=== PATIENT | male | born 1945 | race Caucasian/White ===

== ENCOUNTER → 2017-05-19 | Outpatient (CLI) | payer MEDICARE, OTHER ==
[~2017-05-19] MED LIST: ALLOPURINOL300 MG PO; ASPIR 8181 MG PO; ATENOLOL50 MG PO; ATORVASTATIN CA20 MG PO; CITALOPRAM HBR20 MG PO; DIATRIZOATE MEGL/DIATRIZOA SOD 30 ML BTL PO ONE; DICYCLOMINE HCL20 MG PO; DOXYCYCLINE HY100 MG PO; EDARBYCLOR 40-1 EAC1 PO; LYRICA50 MG PO; NITROGLYCERIN0.4 MG SL; PLAVIX75 MG PO; POTASSIUM CHLO20 ME1 PO; POTASSIUM CITRATE PO; TURMERIC500 MG PO; WARFARIN SODIUM1 MG PO; WARFARIN SODIUM3 MG PO; XOPENEX HFA15 G1 IH; Z.0.NORCO 10-325 T1 PO; Z.0.PRILOSEC20 MG PO; Z.0.WARFARIN SODIUM4 PO; [UNRECOGNIZED DRUG - OTHER] PO; [UNRECOGNIZED DRUG - OTHER] PO
--- NOTE | 2017-05-19 17:55 | Diagnostic Imaging Report ---
EXAM: CT Abdomen and Pelvis WITHOUT contrast INDICATION: Abdominal abscess. COMPARISON: None. Lower right sided abdominal 1. TECHNIQUE: Abdomen and pelvis were scanned utilizing a multidetector helical scanner from the lung base to the pubic symphysis without administration of IV contrast. Absence of intravenous contrast decreases sensitivity for detection of focal lesions and vascular pathology. Coronal and sagittal reformations were obtained. Routine protocol was performed. IV CONTRAST: None. ORAL CONTRAST: Gastrografin and water mixture. RADIATION DOSE: Total DLP: 813.09 mGy*cm Estimated effective dose: (DLP x 0.015 x size factor) mSv COMPLICATIONS: None FINDINGS: LINES and TUBES: None. LOWER THORAX: Bilateral lower lobe emphysematous changes. Reticular nodular densities in the left lung base are nonspecific, possibly infectious/inflammatory in etiology. Bibasilar pleural-parenchymal scarring. Multivessel coronary artery calcifications. HEPATOBILIARY: No focal hepatic lesions. No biliary ductal dilation. GALLBLADDER: Surgically absent. SPLEEN: No splenomegaly. PANCREAS: No focal masses or ductal dilatation. ADRENALS: No adrenal nodules KIDNEYS/URETERS: No hydronephrosis. 5.4 cm simple appearing cyst exophytic of the posterior lower pole of the right kidney. 2.2 cm mildly high attenuation lesion exophytic of the lower pole of the right kidney on image 42 series 2 may represent a hyperdense cyst, however, cannot be further characterized due to lack of contrast. 2 Simple appearing cysts in the lower pole of the left kidney, the largest measuring 3.7 cm on image 40. No stones. Mild bilateral perinephric stranding. GI TRACT: No abnormal distention, wall thickening, or evidence of bowel obstruction. Appendix is normal. Scattered colonic diverticulosis without diverticulitis. PELVIC ORGANS/BLADDER: The prostate is mildly prominent. LYMPH NODES: No lymphadenopathy. VESSELS: Atherosclerotic calcifications of the aorta and iliac arteries without aneurysmal dilatation. Bilateral common iliac artery stents. PERITONEUM / RETROPERITONEUM: No free air or fluid. BONES: Degenerative disc disease and spondylosis predominantly at L4-L5 and L5-S1. Mild bilateral neural foraminal narrowing at L5-S1. Lower thoracic DISH. SOFT TISSUES: Bilateral calcified and noncalcified gluteal injection granulomata. Bilateral small fat-containing inguinal hernias. 1.4 cm indeterminate inclusion cyst in the left anterior abdominal wall on image 21 series 2. 2.0 cm oval lesion in the subcutaneous of the right lower quadrant on image 81 series 2 which appears to extend to the cutaneous surface, however, without extension into the abdominal cavity. No associated drainable fluid collection. IMPRESSION: 1. 2.0 cm subcutaneous lesion in the right lower quadrant anteriorly which appears to extend to the cutaneous surface not extending intra-abdominally. No drainable abscess/fluid collection. No Intra-abdominal fluid collection. 2. 2.2 cm mildly high attenuation lesion in the lower pole of the right kidney may represent a hyperdense cyst, however, cannot be further characterized due to the lack of contrast. Signed by: Dr. Morris Shea M.D. on 05/19/2017 5:52 PM
== END ==
LOC: CT 15:17
PROVIDERS: ATTEND Internal Medicine Infectious Disease
DX: L02.211 Cutaneous abscess of abdominal wall (principal)
CPT/HCPCS: 74176

== ENCOUNTER → 2017-06-10 | Outpatient (CLI) | payer MEDICARE, OTHER ==
[~2017-06-10] VITALS: Ht 193 cm; Wt 101.6 kg
[~2017-06-10] MED LIST changes: +AMIODARONE HCL200 MG PO; +CIPROFLOXACIN500 MG PO; -DIATRIZOATE MEGL/DIATRIZOA SOD 30 ML BTL PO ONE; +FLUCONAZOLE100 MG PO; +FUROSEMIDE40 MG PO; +LIDOCAINE HCL 2% LOCAL 20 ML VIAL ONE; +POTASSIUM CITR10 MEQ PO; +SODIUM CHLORIDE 0.9% 250ML 0 ML ONE; +SODIUM CHLORIDE 0.9% 500ML 500 ML ONE; +WARFARIN SODIUM2 MG PO
[2017-06-10 11:10] VITALS: BP 105/62
[2017-06-10 12:29] LABS: ABG HCO3 22 mmol/L (23-28); ABG PCO2 35 mmHg (41-51); ABG PH 7.41 (7.31-7.41); ABG PO2 86 mmHg (80-105)
[2017-06-10 14:13] VITALS: BP 132/75
--- NOTE | 2017-06-10 14:29 | Pulmonary Function Test ---
DATE OF STUDY: June 10, 2017 Forced vital capacity 2.71 liters, 52% of predicted. FEV1 1.68 liters, 44%. FEV1:FVC ratio 62%. QTI31-34 is 33%. Diffusion capacity is reduced at 11.6, 36% of predicted. Lung volumes are preserved. Total lung capacity 8.76 liters, 108% of predicted. Findings consistent with severe obstructive pulmonary disease. Reduced diffusion capacity suggests loss of alveolar units with ventilation and perfusion imbalance. Arterial blood gases: pH 7.41, pCO2 is 35, pAO2 is 86, normal acid-base status. AA gradient is slightly elevated at 21.8. Job#: [id number]
--- NOTE | 2017-06-15 10:58 | Diagnostic Imaging Report ---
Exam: Tunneled right IJ central line removal. History: Right IJ tunneled catheter present since March 2017 for IV antibiotics. Patient has completed antibiotics and no longer needs access. Comparison: None available Findings: Utilizing 1% Xylocaine after sterile preparation the tunneled right IJ central line was removed after blunt dissection to free up the Dacron cuff. The catheter was removed in its entirety. Tissue adhesive was placed at the insertion site. Patient tolerated the procedure well. Fluoroscopy time: 0.4 minutes Total dose: 110.8 cGycm2 Impression: Successful removal of a tunneled right IJ central line. Signed by: Dr. Liban Mcneil DO on 06/11/2017 1:41 PM
== END ==
LOC: RESP 09:14
PROVIDERS: ATTEND Internal Medicine
DX: I70.0 Atherosclerosis of aorta (principal); I70.223 Atherosclerosis of native arteries of extremities with rest pain, bilateral legs; I70.235 Atherosclerosis of native arteries of right leg with ulceration of other part of foot
CPT/HCPCS: 36415; 77001; 82805; 94010; 94727; 94729; J2001; J7040; 36590; J7050

== ENCOUNTER 2017-08-11 09:56 | Inpatient (IN) | payer MEDICARE, OTHER ==
[~2017-08-11] VITALS: Ht 193 cm; Wt 113.0 kg
[~2017-08-11 09:56] MED LIST changes: -LIDOCAINE HCL 2% LOCAL 20 ML VIAL ONE; -SODIUM CHLORIDE 0.9% 250ML 0 ML ONE; -SODIUM CHLORIDE 0.9% 500ML 500 ML ONE
--- OUTSIDE RECORDS SUMMARY | 2017-08-11 10:59 | XMS REPORT ---
Author Author 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 Allergies, Adverse Reactions, Alerts This patient has no known allergies or adverse reactions. Medications This patient has no known medications. Results Test Description Test Time Test Comments Text Results Atomic Results Result Comments SPECIAL PROCEDURE IN [employer] [place] [address] Patient Name: SUSAN KELLY MR #: [id number] : 1945 Age/Sex: 71/M Req #: [id number] [facility] Physician: Ordered by: IGGY HERCULES MD Report #: [id number] Location: RESP Room/Bed: Procedure: [id number] IR/SPECIAL PROCEDURE IN [employer] Exam Date: Exam Time: REPORT STATUS: Signed Exam: Tunneled right IJ central line removal. History: Right IJ tunneled catheter present since March 2017 for IV antibiotics. Patient has completed antibiotics and no longer needs access. Comparison: None available Findings: Utilizing 1 % Xylocaine after sterile preparation the tunneled right IJ central line was removed after blunt dissection to free up the Dacron cuff. The catheter was removed in its entirety. Tissue adhesive was placed at the insertion site. Patient tolerated the procedure well. Fluoroscopy time: 0.4 minutes Total dose: 110.8 cGycm2 Impression: Successful removal of a tunneled right IJ central line. Signed by: Dr. Scooby Mcneil DO on 06/11/2017 1:41 PM Dictated By: SCOOBY MCNEIL DO [id number] Transcribed By: FRANCESCO on 06/15/17 1054 COPY TO: IGGY HERCULES MD CT ABDOMEN/PELVIS WO [place] [address] Patient Name: SUSAN KELLY MR #: [id number] : 1945 Age/Sex: 71/M Req #: [id number] Adm Physician: Ordered by: FLOYD OSORIO MD Report #: [id number] Location: CT Room/Bed: Procedure: [id number] CT/CT ABDOMEN/PELVIS WO Exam Date: 05/19/17 Exam Time: 1630 REPORT STATUS: Signed EXAM: CT Abdomen and Pelvis WITHOUT contrast INDICATION: Abdominal abscess. COMPARISON: None. Lower right sided abdominal 1. TECHNIQUE: Abdomen and pelvis were scanned utilizing a multidetector helical scanner from the lung base to the pubic symphysis without administration of IV contrast. Absence of intravenous contrast decreases sensitivity for detection of focal lesions and vascular pathology. Coronal and sagittal reformations were obtained. Routine protocol was performed. IV CONTRAST: None. ORAL CONTRAST: Gastrografin and water mixture. RADIATION DOSE: Total DLP: 813.09 mGy*cm Estimated effective dose: (DLP x 0.015 x size factor) mSv COMPLICATIONS: None FINDINGS: LINES and TUBES: None. LOWER THORAX: Bilateral lower lobe emphysematous changes. Reticular nodular densities in the left lung base are nonspecific, possibly infectious /inflammatory in etiology. Bibasilar pleural-parenchymal scarring. Multivessel coronary artery calcifications. HEPATOBILIARY: No focal hepatic lesions. No biliary ductal dilation. GALLBLADDER: Surgically absent. SPLEEN: No splenomegaly. PANCREAS: No focal masses or ductal dilatation. ADRENALS: No adrenal nodules KIDNEYS/URETERS: No hydronephrosis. 5.4 cm simple appearing cyst exophytic of the posterior lower pole of the right kidney. 2.2 cm mildly high attenuation lesion exophytic of the lower pole of the right kidney on image 42 series 2 may represent a hyperdense cyst, however, cannot be further characterized due to lack of contrast. 2 Simple appearing cysts in the lower pole of the left kidney, the largest measuring 3.7 cm on image 40. No stones. Mild bilateral perinephric stranding. GI TRACT: No abnormal distention, wall thickening, or evidence of bowel obstruction. Appendix is normal. Scattered colonic diverticulosis without diverticulitis. PELVIC ORGANS/BLADDER: The prostate is mildly prominent. LYMPH NODES: No lymphadenopathy. VESSELS : Atherosclerotic calcifications of the aorta and iliac arteries without aneurysmal dilatation. Bilateral common iliac artery stents. PERITONEUM / RETROPERITONEUM: No free air or fluid. BONES: Degenerative disc disease and spondylosis predominantly at L4-L5 and L5-S1. Mild bilateral neural foraminal narrowing at L5-S1. Lower thoracic DISH. SOFT TISSUES: Bilateral calcified and noncalcified gluteal injection granulomata. Bilateral small fat- containing inguinal hernias. 1.4 cm indeterminate inclusion cyst in the left anterior abdominal wall on image 21 series 2. 2.0 cm oval lesion in the subcutaneous of the right lower quadrant on image 81 series 2 which appears to extend to the cutaneous surface, however, without extension into the abdominal cavity. No associated drainable fluid collection. IMPRESSION: 1. 2.0 cm subcutaneous lesion in the right lower quadrant anteriorly which appears to extend to the cutaneous surface not extending intra-abdominally. No drainable abscess/fluid collection. No Intra-abdominal fluid collection. 2. 2.2 cm mildly high attenuation lesion in the lower pole of the right kidney may represent a hyperdense cyst, however, cannot be further characterized due to the lack of contrast. Signed by: Dr. Morris Sheffield M.D. on 05/19/2017 5:52 PM Dictated By: JAYA SHEFFIELD MD, MD 51 Transcribed By: FRANCESCO on 09/29 COPY TO: FLOYD OSORIO MD
--- OUTSIDE RECORDS SUMMARY | 2017-08-11 10:59 | XMS REPORT | Clinical Summary ---
Author Author [facility] Organization [facility] Address Unknown Phone Unavailable Care Team Providers Care Attending Anesthesiologist Name Role Phone Satinder Hong MD PCP Unavailable Allergies Active Allergy Reactions Severity Noted Date Comments Adhesive Tape-Silicones Low 06/16/2017 Blisters / OK with cloth tape Codeine Rash Low 06/16/2017 Nausea /vomiting Current Medications Prescription Sig. Disp. Refills Start End Date Status Date allopurinol (ZYLOPRIM) Take 300 mg by mouth Active 300 MG tablet nightly. aspirin (ECOTRIN) 81 MG Take 81 mg by mouth Active enteric coated tablet daily. atorvastatin (LIPITOR) 20 Take 20 mg by mouth Active MG tablet nightly. Default OP ins citalopram (CeleXA) 20 MG Take 20 mg by mouth Active tablet daily. furosemide (LASIX) 40 mg Take 40 mg by mouth 2 Active tablet (two) times a day. nitroglycerin (NITROSTAT) Place 0.4 mg under the Active 0.4 MG SL tablet tongue every 5 (five) minutes as needed for chest pain. albuterol (PROAIR Inhale 2 puffs every 6 Active HFA,PROVENTIL (six) hours as needed for HFA,VENTOLIN HFA) 90 wheezing. mcg/actuation inhaler omeprazole (PriLOSEC) 20 Take 20 mg by mouth Active MG capsule daily. potassium citrate Take by mouth every Active (UROCIT-K) 10 mEq (1,080 evening. mg) CR tablet pregabalin (LYRICA) 50 MG Take 50 mg by mouth every Active capsule evening. amIODarone (PACERONE) 200 Take 200 mg by mouth Active MG tablet daily. LACTOBACILLUS ACIDOPHILUS Take by mouth. Active (PROBIOTIC ORAL) doxycycline (VIBRAMYCIN) Take 100 mg by mouth Active 100 MG capsule daily. ciprofloxacin (CIPRO) 500 Take 500 mg by mouth Active MG tablet daily. atenolol (TENORMIN) 25 MG Take 1 tablet (25 mg 30 tablet 11 06/28/19 06/28/19 Active tablet total) by mouth nightly. 18 19 ferrous sulfate 325 (65 Take 1 tablet (325 mg 60 tablet 11 06/28/19 06/28/19 Active FE) MG tablet total) by mouth 2 (two) 18 19 times a day with meals. atenolol (TENORMIN) 50 MG Take 50 mg by mouth 06/28/19 Discontin tablet nightly. 18 ued clopidogrel (PLAVIX) 75 Take 75 mg by mouth 06/28/19 Discontin mg tablet daily. 18 ued azilsartan Take by mouth. 1/2 tab 06/22/19 Discontin med-chlorthalidone daily 18 ued (EDARBYCLOR) 40-25 mg tablet WARFARIN SODIUM (WARFARIN Take by mouth. 8 mg=Tu06/28/19 Discontin ORAL) , Sat 18 ued 5 mg=Mon, Thur, Fri , Sun fluconazole (DIFLUCAN) Take by mouth daily. 06/28/19 Discontin 100 MG tablet 18 ued azilsartan Take by mouth. 06/28/19 Discontin med-chlorthalidone 18 ued (EDARBYCLOR) 40-25 mg tablet warfarin (COUMADIN) 1 MG Take 7 tablets (7 mg 210 tablet 0 06/28/19 07/28/19 tablet total) by mouth daily for 18 18 30 days. traMADol (ULTRAM) 50 mg Take 1 tablet (50 mg 40 tablet 0 06/28/19 tablet total) by mouth every 6 18 18 (six) hours as needed for moderate pain or severe pain for up to 14 days. enoxaparin (LOVENOX) 100 Inject 1 mL (100 mg 6 mL 0 06/28/19 mg/mL syringe total) under the skin 2 18 18 (two) times a day for 3 days. Active Problems Problem Noted Date PAD (peripheral artery disease) 06/21/2017 Encounters Date Type Specialty Care Team Description 06/21/2017 [facility] Cardiology Baltazar Hoff MD S/P femoral- popliteal - Encounter bypass surgery (Primary 06/27/2017 Dx); PAD (peripheral artery disease) 06/21/2017 Procedure Pass Cardiothoracic Surgery 06/21/2017 Surgery Cardiothoracic Surgery Baltazar Hoff MD RIGHT FEMORAL BELOW KNEE POPLITEAL BYPASS WITH BALLOON/STENT OF POSTERIOR TIBIAL ARTERY 06/16/2017 Hospital Radiology Baltazar Hoff MD Pre-op testing Encounter 06/16/2017 Pre-Admit Pre-Admission Testing Baltazar Hoff MD Pre -op testing (Primary Testing Dx) Appointment 06/16/2017 Anesthesia Cardiothoracic Surgery Genny Curry APRN Event after 08/10/2016 Social History Tobacco Use Types Packs/Day Years Used Date Former Smoker 1 50 Quit: 1999 Smokeless Tobacco: Former Quit: 2011 User Comments: smokeless tobacco 2cans/day , used x 24 years , quit 2011 Alcohol Use Drinks/Week oz/Week Comments No Sex Assigned at Date Recorded Not on file Last Filed Vital Signs Vital Sign Reading Time Taken Blood Pressure 137/65 06/27/2017 7:14 AM CDT Pulse 76 06/27/2017 7:14 AM CDT Temperature 36.9 C (98.5 F) 06/27/2017 7:14 AM CDT Respiratory Rate 20 06/27/2017 7:14 AM CDT Oxygen Saturation 98% 06/27/2017 7:14 AM CDT Inhaled Oxygen - - Concentration Weight 111 kg (243 lb 14.4 oz) 06/27/2017 4:30 AM CDT Height 193 cm (6' 4") 06/16/2017 4:10 PM CDT Body Mass Index 29.69 06/27/2017 4:30 AM CDT Plan of Treatment Health Maintenance Due Date Last Done Comments COLON CANCER SCREENING 1994 SHINGRIX VACCINE (#1) 1994 ZOSTER VACCINE 2004 PNEUMOCOCCAL 2009 POLYSACCHARIDE VACCINE AGE 65 AND OVER PNEUMOCOCCAL-13 2009 INFLUENZA VACCINE 10/13/2017 Procedures Procedure Name Priority Date/Time Associated Diagnosis Comments CENTRAL LINE Routine 06/21/2017 8:02 AM CDT Procedure Note - Mally Mehta MD - 06/21/2017 8:02 AM CDT Central line Performed by: MALLY MEHTA Authorized by: MALLY MEHTA Patient Location: OR Staff: Anesthesio logist: MALLY MEHTA Performed by: Anesthesio logist Preprocedu re:patient identified , IV checked, site and side verified, risks and benefits discussed, procedure verified, surgical consent complete, patient position confirmed, monitors and equipment checked and pre-op evaluation complete MSBT: antiseptic used during central venous catheter insertion, all elements of maximal sterile barrier technique followed, hand hygiene performed prior to central venous catheter insertion, cap/gown used by other personnel during central venous catheter insertion, solutions labeled and all ports not used during insertion clamped Indication s: Indication s: Central pressure monitoring and vascular access Anesthesia : Anesthesia : General Procedure details: Patient position: Trendelenb urg Catheter Type: Double lumen Catheter Size: 8 Fr Catheter Site: internal jugular vein Catheter site laterality : Right Pre-proced ure: Landmarks identified Ultrasound guidance used: Yes Ultrasound image saved: Yes Number of attempts: 1 Successful placement: Yes Guidewire removal: Guidewire removal is confirmed Guidewire removal witnessed by: GABY PEREZ Post-proce dure: Post-proce dure: line sutured, sterile dressing applied per protocol and ports flushed with saline Post-proce dure: Blood cleaned with CHG and sterile caps on all hubs Assessment : Blood return through all ports and free fluid flow Complicati ons: Arrhythmia Patient tolerance: Patient tolerated the procedure well with no immediate complicati ons ARTERIAL LINE Routine 06/21/2017 8:01 AM CDT Procedure Note - Mally Mehta MD - 06/21/2017 8:01 AM CDT Arterial line Performed by: MALLY MEHTA Authorized by: MALLY MEHTA Staff: Anesthesio emmanuel: MALLY MEHTA Performed by: Anesthesio logist Pre-proced ure: patient identified , IV checked, site and side verified, risks and benefits discussed, procedure verified, surgical consent complete, patient position confirmed, monitors and equipment checked and pre-op evaluation complete MSBT: antiseptic used, all elements of maximal sterile barrier technique followed, hand hygiene performed, cap/gown used by other personnel and solutions labeled Indication s: Indication s: multiple ABGs and hemodynami c monitoring Anesthesia : Anesthesia : General Procedure Details: Arterial Line placement: Placed post induction Line placement site: Axillary Line placement side: Left Arterial line gauge: 20 G Number of attempts: 1 Ultrasound guidance used: Yes Post-proc edure: Post-proce dure: Line sutured and sterile dressing applied Post procedure circulatio n, sensation, movement: Normal and unchanged Patient tolerance: Patient tolerated the procedure well with no immediate complicati ons MO AN ELECTIVE Routine 06/21/2017 ENDOTRACHEAL AIRWAY 8:00 AM CDT Procedure Note - Mally Mehta MD - 06/21/2017 8:00 AM CDT Airway Performed by: MALLY MEHTA Authorized by: MALLY MEHTA Location: OR Urgency: Elective Difficult Airway: No Anesthesio logist: MALLY MEHTA Resident/C RNA/AA: GABY PEREZ Performed by: resident/C RNA/AA Preoxygena jordan with 100% O2: Yes C-spine Precaution s Maintained Throughout : Yes Mask Ventilatio n: Assisted mask Final Airway Type: Endotrache al airway Final Endotrache al Airway: ETT Cuffed: Yes Technique Used: Video laryngosco py Devices/Me thods Used in Placement: Intubatin g stylet Insertion Site: Oral Blade type: Glidescope . Laryngosco pe Blade/Vide olaryngosc ope Blade Size: 4 ETT Size (mm): 8.0 Cuff at minimum occlusion pressure: Yes Measured from: Lips ETT to Lips (cm): 21 Placement Verified by: CO2 detection, direct visualizat ion and equal breath sounds Laryngosco pic view: Grade I - full view of glottis Rapid Sequence Induction (RSI): No Modified RSI: No Number of Attempts at Approach: 1 Atraumati c. after 08/10/2016 Results * CBC with platelet and differential (06/27/2017 9:49 AM) Only the most recent of 5 results within the time period is included. Component Value Ref Range WBC 8.07 4.50 - 11.00 k/uL RBC 3.14 (L) 4.40 - 6.00 m/uL HGB 9.0 (L) 14.0 - 18.0 g/dL HCT 28.0 (L) 41.0 - 51.0 % MCV 89.2 82.0 - 100.0 fL MCH 28.7 27.0 - 34.0 pg MCHC 32.1 31.0 - 37.0 g/dL RDW - SD 55.1 (H) 37.0 - 55.0 fL MPV 10.7 8.8 - 13.2 fL Platelet count 217 150 - 400 k/uL Nucleated RBC 0.40 /100 WBC Neutrophils 70.6 (H) 39.0 - 69.0 % Lymphocytes 16.4 (L) 25.0 - 45.0 % Monocytes 8.6 0.0 - 10.0 % Eosinophils 0.1 0.0 - 5.0 % Basophils 0.1 0.0 - 1.0 % Immature granulocytes 4.2 (H)Comment: "Immature granulocytes" 0.0 - 1.0 % (promyelocytes, myelocytes, metamyelocytes) Specimen Performing Laboratory Blood [facility] DEPARTMENT OF PATHOLOGY AND GENOMIC MEDICINE [address] [place] [address] * Estimated GFR (06/27/2017 8:07 AM) Only the most recent of 9 results within the time period is included. Component Value Ref Range GFR Non Af Amer 37 (A) mL/min/1.73 m2 GFR Af Amer 45 (A) mL/min/1.73 m2 Comment: Chronic kidney disease: <60 mL/min/1.73m2 Kidney failure: <15 mL/min/1.73m2 The estimated GFR is calculated from the IDMS-traceable Modification of Diet in Renal Disease Equation. The accuracy of the calculation is poor when the creatinine is normal. Calculated values >90 mL/min/1.73m2 are not reported. This equation has not been validated in children (<18 years), women, the elderly (>70 years), or ethnic groups other than Caucasians and Americans. Specimen Performing Laboratory Plasma specimen [facility] DEPARTMENT OF PATHOLOGY AND [employer] [address] [address] * Basic metabolic panel (06/27/2017 8:07 AM) Only the most recent of 8 results within the time period is included. Component Value Ref Range Sodium 136 135 - 148 mEq/L Potassium 4.5 3.5 - 5.0 mEq/L Chloride 95 (L) 98 - 112 mEq/L CO2 29 24 - 31 mEq/L Anion gap 12 7 - 15 mEq/L Comment: Starting from June , anion gap calculation no longer incorporates potassium. Please note the change. BUN 44 (H) 8 - 23 mg/dL Creatinine 1.8 (H) 0.7 - 1.2 mg/dL Glucose 93 65 - 99 mg/dL Calcium 9.2 8.8 - 10.2 mg/dL Specimen Performing Laboratory Plasma specimen [facility] DEPARTMENT OF PATHOLOGY AND GENOMIC MEDICINE [address] [place] [address] * Prothrombin time with INR (06/27/2017 5:00 AM) Only the most recent of 7 results within the time period is included. Component Value Ref Range Prothrombin time 18.4 (H) 12.0 - 15.0 sec INR 1.5 Comment: The International Normalized Ratio (INR) is a therapeutic monitoring tool for patients who are stable on oral anticoagulant therapy. An INR of 2.0-3.0 is suggested for deep vein thrombosis/pulmonary embolism. Specimen Performing Laboratory Blood [facility] PATHOLOGY [facility] MEDICINE [address] [place] [address] * CBC hemogram (06/26/2017 5:00 AM) Only the most recent of 5 results within the time period is included. Component Value Ref Range WBC 6.93 4.50 - 11.00 k/uL RBC 2.85 (L) 4.40 - 6.00 m/uL HGB 8.1 (L) 14.0 - 18.0 g/dL HCT 25.5 (L) 41.0 - 51.0 % MCV 89.5 82.0 - 100.0 fL MCH 28.4 27.0 - 34.0 pg MCHC 31.8 31.0 - 37.0 g/dL RDW - SD 56.8 (H) 37.0 - 55.0 fL MPV 11.0 8.8 - 13.2 fL Platelet count 182 150 - 400 k/uL Nucleated RBC 0.40 /100 WBC Specimen Performing Laboratory Blood [facility] DEPARTMENT OF PATHOLOGY [facility] MEDICINE [address] [place], [place] [id number] * POC glucose (06/25/2017 12:13 PM) Only the most recent of 16 results within the time period is included. Component Value Ref Range POC glucose 99 65 - 99 mg/dL Comment: [facility] Notified RN Meter ID: [id number] Vice President Mission Integration: Kleber Whitney Specimen Performing Laboratory [facility] DEPARTMENT OF PATHOLOGY AND [facility] MEDICINE [address] [place], [place] [id number] * Total iron binding capacity (06/25/2017 4:00 AM) Component Value Ref Range Iron level 23 (L) 59 - 158 ug/dL Iron binding capacity 270 200 - 400 ug/dL % Saturation 8.5 (L) 20.0 - 40.0 % Specimen Performing Laboratory Plasma specimen [facility] DEPARTMENT OF PATHOLOGY AND GENOMIC MEDICINE [address] [place] [address] * Magnesium level (06/25/2017 4:00 AM) Only the most recent of 6 results within the time period is included. Component Value Ref Range Magnesium 1.6 1.6 - 2.4 mg/dL Specimen Performing Laboratory Plasma specimen [facility] DEPARTMENT OF PATHOLOGY AND [address] [address] * Ferritin level (06/25/2017 4:00 AM) Component Value Ref Range Ferritin level 91 30 - 400 ng/mL Specimen Performing Laboratory Plasma specimen [facility] DEPARTMENT PATHOLOGY [facility] MEDICINE [address] [place] [address] * ECG 12 lead (06/24/2017 10:44 AM) Only the most recent of 4 results within the time period is included. Component Value Ref Range Ventricular rate 93 Atrial rate 93 MO interval 138 QRSD interval 136 QT interval 374 QTC interval 465 P axis 1 67 QRS axis 1 48 T wave axis 25 EKG impression Normal sinus rhythm-Right bundle branch block-Abnormal ECG-In automated comparison with ECG of 23-JUN-2017 09:37,-No significant change was found- Specimen Performing Laboratory [facility] MUSE [address] [place], [place] [id number] * Smear review (06/24/2017 7:57 AM) Component Value Ref Range Platelet slide review Tony adequate Anisocytosis Moderate Polychromasia Moderate Ovalocytes Moderate Specimen Performing Laboratory [facility] DEPARTMENT OF PATHOLOGY AND [facility] MEDICINE [address] [place] [address] * Phosphorus level (06/23/2017 4:00 AM) Only the most recent of 3 results within the time period is included. Component Value Ref Range Phosphorus 4.7 (H) 2.4 - 4.5 mg/dL Specimen Performing Laboratory Plasma specimen [facility] DEPARTMENT PATHOLOGY AND [facility] MEDICINE [address] [place] [address] * Ionized calcium (06/23/2017 4:00 AM) Only the most recent of 3 results within the time period is included. Component Value Ref Range pH 7.40 Ionized calcium 1.22 1.11 - 1.32 mmol/L Specimen Performing Laboratory Plasma specimen [facility] OF PATHOLOGY AND [facility] MEDICINE [address] [place] [address] * Hemoglobin & hematocrit (06/22/2017 9:00 AM) Component Value Ref Range HGB 7.5 (L) 14.0 - 18.0 g/dL HCT 23.2 (L) 41.0 - 51.0 % Specimen Performing Laboratory Blood [facility] DEPARTMENT OF PATHOLOGY AND GENOMIC MEDICINE [address] [place], [place] [id number] * Partial thromboplastin time, activated (06/22/2017 9:00 AM) Only the most recent of 3 results within the time period is included. Component Value Ref Range PTT 26.4 23.0 - 36.0 sec Comment: PTT therapeutic range for unfractionated heparin is 61.0-112.0 seconds which corresponds to Anti-Xa 0.3-0.7 U/ml. Specimen Performing Laboratory Blood [facility] DEPARTMENT OF PATHOLOGY AND GENOMIC MEDICINE [address] [place] [address] * XR Chest 1 Vw Portable (06/21/2017 2:40 PM) Specimen Performing Laboratory [facility] [address] [place] [address] Narrative EXAMINATION:XR CHEST 1 VW PORTABLE CLINICAL HISTORY:UVC line placementPost Operative COMPARISON: June 16, 2017 . IMPRESSION: 1.Heart size and mediastinum are at upper limits of normal. 2.Positioning of a right IJ line is satisfactory with the tip along the distal SVC. 3.There are emphysematous changes in lungs bilaterally. No pneumothorax. Osseous structures are intact. [facility]-[id number] Procedure Note Hm Interface, Radiology Results Incoming - 06/21/2017 3:39 PM CDT EXAMINATION: XR CHEST 1 VW PORTABLE CLINICAL HISTORY: UVC line placement Post Operative COMPARISON: June 16, 2017 . IMPRESSION: 1. Heart size and mediastinum are at upper limits of normal. 2. Positioning of a right IJ line is satisfactory with the tip along the distal SVC. 3. There are emphysematous changes in lungs bilaterally. No pneumothorax. Osseous structures are intact. [facility]-[id number] * Sodium level, syringe (06/21/2017 12:43 PM) Only the most recent of 6 results within the time period is included. Component Value Ref Range Sodium, syringe 136 135 - 148 mEq/L Specimen Performing Laboratory Blood [facility] DEPARTMENT OF PATHOLOGY AND GENOMIC MEDICINE [address] [place] [address] * Potassium, syringe (06/21/2017 12:43 PM) Only the most recent of 6 results within the time period is included. Component Value Ref Range Potassium, syringe 4.9 3.5 - 5.0 mEq/L Specimen Performing Laboratory Blood [facility] [place] [address] * Ionized calcium, arterial (06/21/2017 12:43 PM) Only the most recent of 6 results within the time period is included. Component Value Ref Range Ionized calcium, arterial 1.33 (H) 1.11 - 1.32 mmol/L Specimen Performing Laboratory Blood [facility] PATHOLOGY [place] [id number] * Hemoglobin, syringe (06/21/2017 12:43 PM) Only the most recent of 6 results within the time period is included. Component Value Ref Range Hemoglobin, syringe 9.3 (L) 14.0 - 18.0 g/dL Specimen Performing Laboratory Blood [facility] [place] [address] * Glucose level, syringe (06/21/2017 12:43 PM) Only the most recent of 6 results within the time period is included. Component Value Ref Range Glucose, syringe 154 (H) 65 - 99 mg/dL Specimen Performing Laboratory Blood [facility] PATHOLOGY [place] [id number] * Arterial blood gas, corrected (06/21/2017 12:43 PM) Only the most recent of 6 results within the time period is included. Component Value Ref Range pH, arterial 7.40 7.35 - 7.45 pCO2, arterial 40 35 - 45 mmHg pO2, arterial 382 (H) 80 - 90 mmHg Temperature, Celsius 37.0 Degrees C O2 saturation, arterial 99 95 - 100 % pH, arterial corrected 7.40 pCO2, arterial corrected 40 mmHg pO2, arterial corrected 382 mmHg Base excess, arterial 0 -2 - 2 mEq/L Specimen Performing Laboratory Blood [facility] PATHOLOGY [place] [id number] * Lactic acid, syringe (06/21/2017 11:00 AM) Only the most recent of 2 results within the time period is included. Component Value Ref Range Lactic acid, syringe 1.4 0.5 - 2.2 mmol/L Specimen Performing Laboratory Blood [facility] DEPARTMENT PATHOLOGY [place] [id number] * XR Chest 2 Vw (06/16/2017 4:47 PM) Specimen Performing Laboratory [facility] [address] [place] [address] Narrative EXAMINATION:XR CHEST 2 VW CLINICAL HISTORY:Z01.818 Encounter for other preprocedural examination, pre op testing COMPARISON:04/03/2001 IMPRESSION: Increased interstitial markings within the lung bases. Mildly decreased lung volumes and slight elevation right hemidiaphragm. No definite acute infiltrate, consolidation, pleural effusion or pneumothorax seen. Clips project over the mediastinum and hilar structures. Cardiac mediastinal silhouette is within normal limits. Osseous degenerative changes. Cervical spinal fixation plate and screw hardware partly visualized. [facility]-[id number] Procedure Note Hm Interface, Radiology Results Incoming - 06/16/2017 4:52 PM CDT EXAMINATION: XR CHEST 2 VW CLINICAL HISTORY: Z01.818 Encounter for other preprocedural examination, pre op testing COMPARISON: 04/03/2001 IMPRESSION: Increased interstitial markings within the lung bases. Mildly decreased lung volumes and slight elevation right hemidiaphragm. No definite acute infiltrate, consolidation, pleural effusion or pneumothorax seen. Clips project over the mediastinum and hilar structures. Cardiac mediastinal silhouette is within normal limits. Osseous degenerative changes. Cervical spinal fixation plate and screw hardware partly visualized. [facility]-[id number] * ECG Pre/Post Op (06/16/2017 3:45 PM) Component Value Ref Range Ventricular rate 68 Atrial rate 68 MO interval 142 QRSD interval 132 QT interval 428 QTC interval 455 P axis 1 73 QRS axis 1 56 T wave axis 36 EKG impression Normal sinus rhythm-Right bundle branch block-Abnormal ECG-No previous ECGs available- Specimen Performing Laboratory [facility] [address] [place] [address] * Prepare RBC (06/16/2017 3:39 PM) Only the most recent of 2 results within the time period is included. Component Value Ref Range Product name [employer] Red Cell AS3 #2 LR Unit number [id number] Product code [id number] Dispense status Transfused Blood expiration date [id number] Blood type code 5100 Blood type O POSITIVE Product name [employer] Red Cell AS3 #2 LR Unit number [id number] Product code [id number] Dispense status Transfused Blood expiration date 091995580082 Blood type code 5100 Blood type O POSITIVE Specimen Performing Laboratory [facility] DEPARTMENT OF PATHOLOGY AND GENOMIC MEDICINE [address] [place] [address] * Type and screen (06/16/2017 3:39 PM) Component Value Ref Range ABO grouping O Rh type POS Antibody screen (gel) NEG Specimen Performing Laboratory Blood [facility] DEPARTMENT OF PATHOLOGY AND GENOMIC MEDICINE [address] [place] [address] * Comprehensive metabolic panel (06/16/2017 3:39 PM) Component Value Ref Range Sodium 142 135 - 148 mEq/L Potassium 4.4 3.5 - 5.0 mEq/L Chloride 102 98 - 112 mEq/L CO2 25 24 - 31 mEq/L Anion gap 15 7 - 15 mEq/L Comment: Starting from June , anion gap calculation no longer incorporates potassium. Please note the change. BUN 59 (H) 8 - 23 mg/dL Creatinine 2.4 (H) 0.7 - 1.2 mg/dL Glucose 94 65 - 99 mg/dL Calcium 9.5 8.8 - 10.2 mg/dL Protein 6.7 6.3 - 8.3 g/dL Comment: 4.6-7.0 g/dL 1 week 4.4-7.6 g/dL 7 months-1year 5.1-7.3 g/dL 1-2 years 5.6-7.5 g/dL >3 years 6.0-8.0 g/dL 18-150 6.3-8.3 g/dL Albumin 3.3 (L) 3.5 - 5.0 g/dL A/G ratio 1.0 0.7 - 3.8 Alkaline phosphatase 75 40 - 129 U/L AST 19 10 - 50 U/L ALT 18 5 - 50 U/L Total bilirubin 0.3 0.0 - 1.2 mg/dL Specimen Performing Laboratory Plasma specimen [facility] DEPARTMENT OF PATHOLOGY AND GENOMIC MEDICINE [address] [place] [address] after 08/10/2016 Insurance Payer Benefit Subscriber ID Type Phone Address Plan / Group MEDICARE MEDICARE xxxxxxxxxx Medicare [place] PART A AND B [employer] [employer] Home[id number] [place] [id number]
[2017-08-11 11:36] VITALS: BP 84/51
[2017-08-11 12:00] LABS: BASOPHILS % 0.1 % (0.0-1.0); HEMATOCRIT 34.4 % (38.2-49.6); LYMPHOCYTES # (AUTO) 0.6 (1.0-3.2); LYMPHOCYTES % 6.4 % (18.0-39.1); MEAN CORPUSCULAR HEMOGLOBIN 30.9 pg (28-32); MEAN CORPUSCULAR VOLUME 96.6 fL (81-99); MONOCYTES # (AUTO) 0.3 (0.2-0.8); MONOCYTES % 2.8 % (4.4-11.3); NEUTROPHILS # (AUTO) 8.8 (2.1-6.9); NEUTROPHILS % 90.1 % (38.7-80.0); PLATELET COUNT 190 x10e3/uL (140-360); RED BLOOD COUNT 3.56 x10e6/uL (4.3-5.7); RED CELL DISTRIBUTION WIDTH 17.8 % (11.7-14.4)
[2017-08-11 12:01] VITALS: BP 84/51
[2017-08-11 12:19] LABS: ALBUMIN 2.8 g/dL (3.5-5.0); ALBUMIN/GLOBULIN RATIO 1.2 (0.8-2.0); ANION GAP 13.3 mmol/L (8-16); CALCIUM 8.5 mg/dL (8.4-10.2); POTASSIUM 4.3 mmol/L (3.5-5.1)
[2017-08-11] MEDS ORDERED: NITROGLYCERIN 0.4 MG SUBL SL PRN (12:30)
[2017-08-11] MEDS ORDERED: LEVALBUTEROL TARTRATE IH SCH (12:30)
[2017-08-11] MEDS ORDERED: SINEMET 25-1001 EACH PO (12:37)
[2017-08-11] MEDS ORDERED: LEVALBUTEROL 15 GM AERO IH PRN (13:00)
[2017-08-11] MEDS: HYDROCODONE/APAP 10MG-325MG TAB PO PRN ×2 (13:28→17:59)
[2017-08-11] MEDS: SODIUM CHLORIDE 0.9% 1000ML 1,000 ML IV SCH (13:30)
[2017-08-11] MEDS: VANCOMYCIN 1GM/NS 250 ML 250 ML IV SCH ×2 (13:30→22:58)
[2017-08-11] MEDS: CARBIDOPA/LEVODOPA 25/100 TAB PO SCH ×2 (14:00→20:35)
[2017-08-11] MEDS: PIPER-TAZ 3.375 GM 50 ML IV SCH ×2 (14:11→20:35)
[2017-08-11 15:43] VITALS: BP 98/99
[2017-08-11] MEDS: PREGABALIN 50 MG CAP PO SCH (16:23)
[2017-08-11 16:57] LABS: INR 3.47; PROTHROMBIN TIME 32.8 seconds (11.9-14.5)
[2017-08-11] MEDS ORDERED: WARFARIN SOD 5 MG TAB PO SCH (17:00)
[2017-08-11] MEDS ORDERED: WARFARIN SOD 1 MG TAB PO SCH (17:00)
[2017-08-11 19:00] VITALS: BP 77/50
[2017-08-11] MEDS ORDERED: HYDROMORPHONE 1MG/1ML INJ IV PRN (19:00)
[2017-08-11] MEDS ORDERED: SODIUM CHLORIDE 0.9% 1000ML 500 ML IV ONE (19:30)
[2017-08-11] MEDS ORDERED: SODIUM CHLORIDE 0.9% 1000ML 1,000 ML IV SCH (19:30)
[2017-08-11 20:00] VITALS: BP 88/57
[2017-08-11] MEDS: ATORVASTATIN 20 MG TAB PO SCH (20:35)
--- NOTE | 2017-08-11 20:39 | Consultation ---
DATE OF CONSULTATION: August 11, 2017 REASON FOR CONSULT: Hypotension. HISTORY OF PRESENT ILLNESS: Mr. Casiano is a 72-year-old gentleman with a past medical history as listed below reportedly developed redness of his right calf. He was seen at the wound care, and was advised to go to the hospital. The patient was admitted directly to the hospital. He has been following up at the [place] for a wound on his right calf. Denies any fever. No cough or dysuria. The patient gets hyperbaric treatment, and apparently intermittently gets chest pain at times. States it is not too bad. The patient was noted to have blood pressure in the 80s. He is currently getting a bolus of normal saline. He is also getting antibiotics. REVIEW OF SYSTEMS CONSTITUTIONAL: Has some fatigue and weakness. HEENT: No headache or blurring of vision, seizures, or syncope. CARDIOVASCULAR: Occasional chest pain. Has some baseline dyspnea, but nothing worse than his baseline. RESPIRATORY: No cough, fever, expectoration. GI: No abdominal pain, vomiting, diarrhea. : No dysuria, frequency or incontinence. ALLERGIES: CODEINE. MEDICATIONS: See list. PAST MEDICAL HISTORY: History of DVT and pulmonary embolism in 2012, history of COPD, history of CA of lung, status post lobectomy, history of hypertension, history of CAD, history of CKD, history of PAD, status post intervention on his right leg, and subsequently went on to have a right fem-tib bypass by Dr. Hoff earlier this year, history of atrial fibrillation, history of Parkinson. PAST SURGICAL HISTORY: History of right lung lobectomy, history of PAD, status post right fem-tib bypass. SOCIAL HISTORY: Quit smoking in 2000 and quit drinking in 2011. FAMILY HISTORY: Noncontributory. PHYSICAL EXAMINATION GENERAL: Obese gentleman alert, oriented and not in any obvious distress. VITALS: Heart rate is 93, blood pressure 84/51, respiratory rate 20, temperature is 98.9. HEENT: Atraumatic. NECK: No JVD, bruit, thyromegaly, or lymphadenopathy. CARDIOVASCULAR: First and 2nd heart sounds heard. No murmurs, rubs or gallops are appreciated. CHEST: Decreased air entry at the base. No adventitious sounds appreciated. ABDOMEN: Obese, distended and nontender. EXTREMITIES: One to 2+ edema. His right leg is bandaged. There is some erythema of his calf and zheng. Old scars on his right thigh. LABS: WBC is 9.7, hemoglobin 11, hematocrit 34.4, and platelets are 190,000. Sodium is 138, potassium 4.3, chloride 108, BUN 84, creatinine 3, glucose 216. Total bili is 0.3, AST 14, ALT 9, alk phos 61. INR is 3.4. IMPRESSION 1. Cellulitis of right lower extremity. 2. Hypotension. 3. Chronic kidney disease. 4. History of coronary artery disease and stent placement in his left circumflex in April 2016. 5. History of peripheral arterial disease: Status post right leg intervention and bypass. 6. History of deep venous thrombosis. 7. History of pulmonary embolism. PLAN 1. Continue with IV fluids and antibiotics. 2. Will hold off on diuretics. 3. Will get an echocardiogram to assess LV function and valvular function. 4. Hold all antihypertensives for now. 5. Further cardiac workup depending on clinical course. 6. will hold warfarin. His INR is elevated. I discussed my impression and plan of management with the patient. He understands. As always, I appreciate and thank you very much for this referral. Job#: [id number] LUPE GIPSON
[2017-08-11] MEDS: HYDROMORPHONE 2MG/ML INJ IV PRN (22:58)
[2017-08-12] VITALS (51 sets, daily range): BP systolic 57–137; BP diastolic 32–115
[2017-08-12] MEDS ORDERED: ONDANSETRON HCL INJ 2 MG/ML VIAL IV PRN (02:00)
[2017-08-12] MEDS: PROMETHAZINE 25MG/ NS 50ML (IV) IV PRN ×2 (02:30→08:19)
[2017-08-12] MEDS: HYDROMORPHONE 2MG/ML INJ IV PRN (02:42)
[2017-08-12 06:08] LABS: BASOPHILS % 0.2 % (0.0-1.0); HEMATOCRIT 34.8 % (38.2-49.6); LYMPHOCYTES # (AUTO) 0.9 (1.0-3.2); LYMPHOCYTES % 15.3 % (18.0-39.1); MEAN CORPUSCULAR HEMOGLOBIN 30.5 pg (28-32); MEAN CORPUSCULAR HGB CONC 31.6 g/dL (31-35); MEAN CORPUSCULAR VOLUME 96.4 fL (81-99); MONOCYTES # (AUTO) 0.4 (0.2-0.8); MONOCYTES % 6.4 % (4.4-11.3); NEUTROPHILS # (AUTO) 4.6 (2.1-6.9); NEUTROPHILS % 77.6 % (38.7-80.0); PLATELET COUNT 202 x10e3/uL (140-360); RED BLOOD COUNT 3.61 x10e6/uL (4.3-5.7)
[2017-08-12 06:54] LABS: INR 3.94; PROTHROMBIN TIME 36.2 seconds (11.9-14.5)
[2017-08-12 06:57] LABS: ALBUMIN 2.7 g/dL (3.5-5.0); CALCIUM 8.5 mg/dL (8.4-10.2); CREATININE, SERUM 3.84 mg/dL (0.72-1.25)
[2017-08-12] MEDS ORDERED: MAGNESIUM SULFATE 2GM/50ML 50 ML IV ONE ×2 (07:30→13:00)
[2017-08-12] MEDS: OMEPRAZOLE 20 MG CAP PO SCH (08:15)
[2017-08-12] MEDS: CARBIDOPA/LEVODOPA 25/100 TAB PO SCH ×3 (08:15→21:00)
[2017-08-12] MEDS: SODIUM CHLORIDE 0.9% 1000ML 1,000 ML IV SCH ×2 (08:15)
[2017-08-12] MEDS: ALLOPURINOL 300 MG TAB PO SCH (08:16)
[2017-08-12] MEDS: CITALOPRAM HYDROBROMIDE 20 MG TAB PO SCH (08:16)
[2017-08-12] MEDS: ASPIRIN 81 MG CHEW TAB PO SCH (08:16)
[2017-08-12] MEDS: PREGABALIN 50 MG CAP PO SCH ×2 (08:16→18:00)
[2017-08-12] MEDS: POTASSIUM CITRATE 10 MEQ TAB PO SCH (08:16)
[2017-08-12] MEDS: MORPHINE SULFATE 2 MG/ML SYR IV PRN (08:19)
[2017-08-12] MEDS ORDERED: [UNRECOGNIZED DRUG - OTHER] PO SCH ×2 (09:00)
[2017-08-12] MEDS ORDERED: ATENOLOL 50 MG TAB PO SCH (09:00)
[2017-08-12] MEDS ORDERED: DOXYCYCLINE HYCLATE TABLET 100 MG TAB PO SCH (09:00)
[2017-08-12] MEDS ORDERED: AZILSARTAN PO SCH ×2 (09:00)
[2017-08-12] MEDS ORDERED: FUROSEMIDE 40 MG TAB PO SCH (09:00)
[2017-08-12] MEDS ORDERED: AMIODARONE HCL 200 MG TAB PO SCH (09:00)
[2017-08-12] MEDS ORDERED: CHLORTHALIDONE PO SCH ×2 (09:00)
[2017-08-12] MEDS: PIPER-TAZ 3.375 GM 50 ML IV SCH (09:25)
[2017-08-12] MEDS ORDERED: DAPTOMYCIN 500 MG in SODIUM CHLORIDE 0.9% 100 ML IV SCH (09:45)
[2017-08-12] MEDS: MEROPENEM 500 MG VIAL IV SCH (10:04)
--- NOTE | 2017-08-12 11:19 | Consultation ---
DATE OF CONSULTATION: August 12, 2017 INFECTIOUS DISEASE CONSULTATION This is a 72-year-old gentleman known to infectious disease from a prior admission. This is a patient of Dr. Hong admitted to [facility] in [place], [place]. Mr. Casiano is a pleasant, 72-year-old gentleman with PVD and chronic ulcer on his right 1st toe, seen by Dr. Hoff. Dr. Hoff believed the patient would benefit from a bypass of the right lower extremity to improve the blood outflow to the right 1st toe for healing purposes. The patient received bypass of the right lower extremity approximately about 40 to 50 days ago in [facility] by Dr. Hoff. About 8 to 10 days ago, he started having some swelling and tenderness in the right leg. He saw Dr. Tello as an outpatient in the clinic. It finally opened up in 2 different spots in his right lower extremity with some drainage. The sites are currently packed, and he is admitted to the hospital for evaluation and treatment of cellulitis. PAST MEDICAL HISTORY: Includes: 1. DVT and pulmonary embolism in 2011. 2. History of COPD. 3. History of lung cancer, status post lobectomy. 4. Hypertension. 5. Coronary artery disease. 6. Chronic kidney disease. 7. Peripheral arterial disease and peripheral vascular disease, status post right lower extremity bypass, fem-tib I believe. 8. History of AFib. 9. Parkinson disease. ALLERGIES: ALLERGIC TO CODEINE. LABORATORY STUDIES: White count 5.96, platelets 202, creatinine 3.84. No new microbiology studies are available. No new radiology studies are available. MEDICATIONS: List has been reviewed. From an infectious disease point of view, the patient is on Zosyn, doxycycline, and vancomycin. REVIEW OF SYSTEMS: There is some nausea. No vomiting, fever, chills, chest pain, shortness of breath. PHYSICAL EXAMINATION GENERAL: Alert, weak, oriented, in bed. Seems nauseated. Met with the family in the room. CV: S1 and S2. CHEST: Decreased air flow. No acute distress. Equal expansion. ABDOMEN: Soft. Nontender. No distension. Bowel sounds positive in all quadrants. HEENT: Moist mucosa. NECK: No JVD. EXTREMITIES: Right 1st toe at the tip wound on local care. Also has cellulitis of the right leg all the way to the thigh. There are 2 open wounds. One is on the thigh, and one is on the tib-fib area. Both of them are in the mid area. Both of them are packed. Some drainage, which seems to be serous drainage. ASSESSMENT AND PLAN: A 72-year-old gentleman with severe peripheral vascular disease, status post bypass, seems to be complicated with cellulitis infection. We changed the antibiotics to Cubicin and meropenem. The patient has renal insufficiency with a creatinine level of 3.84 and allergy to codeine. We will adjust the antibiotics based on his kidney function. Follow the patient clinically pending wound care evaluation. We will monitor the patient throughout the hospitalization. This case was discussed with Dr. Brewer. Further management of this patient will be based on daily findings and laboratory and physical examinations. I want to thank you for this kind consult and allowing us to participate in the medical needs of this gentleman. Dictated by: CHRIS Ashby Job#: [id number]
[2017-08-12] MEDS: DAPTOMYCIN 500 MG in SODIUM CHLORIDE 0.9% 100 ML IV SCH (11:42)
--- NOTE | 2017-08-12 12:21 | Diagnostic Imaging Report ---
PROCEDURE:CT CHEST WITHOUT CONTRAST COMPARISON:None. INDICATIONS:Shortness of breath TECHNIQUE: Routine protocol Volumetric CT chest. No intravenous or enteric contrast. Multiplanar reformatted images. DLP: 521.21 FINDINGS: Lungs: Mild upper lobe predominant centrilobular emphysema. Scattered interstitial scar most prominent in the lung bases without fibrosis or nodularity. Minimal left lower lobe subsegmental atelectasis. Airways: Expiration phase imaging limiting evaluation. There is marked collapse of the trachea (greater than 70%) (for example, see image 31, series 3). No filling defects. Trace bilateral lower lobe bronchiectasis. Pleura: Lipomatosis. No pleural effusions. Lymph nodes: Calcified mediastinal and hilar. Otherwise, normal Pulmonary arteries: Normal caliber. Pulmonary artery diameter 3 cm. Thoracic aorta and great vessels: Normal caliber. Mild atherosclerosis. Heart and pericardium: Normal size. Moderate to severe coronary artery calcification. No pericardial effusion. Mediastinal lipomatosis. The subdiaphragmatic organs: Imaged portions grossly unremarkable. Skeleton: Healed rib fractures bilaterally. Soft tissues: Normal CONCLUSION: 1. There is greater than 70% collapse of the trachea on this expiration phase imaging, suggesting tracheomalacia. 2. Mild upper lobe predominant centrilobular emphysema and bilateral interstitial scar without fibrosis. 3. Evidence of remote granulomatous disease. Dictated by: Reynaldo Cancino M.D. on 08/12/2017 at 12:23 Electronically approved by: Reynaldo Cancino M.D. on 08/12/2017 at 12:23
[2017-08-12] MEDS ORDERED: SODIUM CHLORIDE 0.9% 1000ML 1,000 ML IV ONE ×3 (12:30→18:00)
[2017-08-12 12:36] LABS: BAND NEUTROPHILS % (MANUAL) 24 %; LYMPHOCYTES % (MANUAL) 15 % (19-48); MONOCYTES % (MANUAL) 8 % (3.4-9.0); MYELOCYTES % (MANUAL) 2 % (0-0); NEUTROPHILS % (MANUAL) 50 % (40-74)
[2017-08-12 12:38] LABS: ANISOCYTOSIS SLIGHT; PLATELET ESTIMATE ADEQUATE; PLATELET MORPHOLOGY COMMENT NORMAL; RBC MORPHOLOGY COMMENT NORMAL
[2017-08-12] MEDS ORDERED: ONDANSETRON HCL 4 MG ORAL DISINTEGRATING TAB ONE (14:36)
[2017-08-12] MEDS: ONDANSETRON HCL 4 MG ORAL DISINTEGRATING TAB PO PRN (14:50)
--- NOTE | 2017-08-12 14:53 | Diagnostic Imaging Report ---
PROCEDURE:CHEST XRAY LINE PLACEMENT TECHNIQUE:Portable AP chest INDICATION:Line placement COMPARISON:Patients [facility], DX, CHEST SINGLE (PORTABLE), 04/18/2016, 5:44. FINDINGS: See conclusion. CONCLUSION: 1. Right internal jugular central venous catheter with the tip in the low SVC. 2. Low lung volume. Left lower lobe subsegmental atelectasis and scar. No focal airspace disease. No pneumothorax. 3. Normal heart size. Normal central vasculature. 4. Intact skeleton. Low cervical spine fusion. Dictated by: Reynaldo Cancino M.D. on 08/12/2017 at 14:56 Electronically approved by: Reynaldo Cancino M.D. on 08/12/2017 at 14:56
--- NOTE | 2017-08-12 14:59 | Diagnostic Imaging Report ---
Non-tunneled Central Venous Catheter Placement 08/12/2017 Pre-Procedure Diagnosis: Multiorgan dysfunction Post-procedure Diagnosis:Multiorgan dysfunction Food Service Manager: Darrell Cancino Equity Research Associate: None Sedation: None. 1% lidocaine local anesthesia. Estimate blood loss: <5 mL Blood administered: None Complications: None Implants/Grafts: 16 cm 7-[place] 3 lumen CVC Specimen: None Procedure: Informed consent was obtained and the patient positioned supine in the ICU. A timeout was performed, followed by preliminary ultrasound of the right internal jugular vein (see findings below). The right neck was prepped and draped in standard fashion. Using real-time ultrasound guidance a 18 gauge vascular needle was used to access the right internal jugular vein. An image was stored in the electronic medical record. A wire was advanced while monitoring the patient's cardiac rhythm and the needle exchanged for a non-tunneled central venous catheter using Seldinger technique. At the end of the procedure the catheter was flushed, secured to the skin and a sterile dressing applied. The patient tolerated the procedure well and without immediate complication. Findings: Patent right internal jugular vein as demonstrated by normal ultrasound compressibility. Impression: Successful placement of a non-tunneled right internal jugular central venous catheter using ultrasound guidance. This report was generated with voice-recognition technology. Errors in stripping shovel oiler can occur. Please interpret accordingly and contact a radiologist if there are any questions regarding the report. Signed by: Dr. Reynaldo Cancino M.D. on 08/12/2017 2:55 PM
--- NOTE | 2017-08-12 14:59 | Diagnostic Imaging Report ---
Non-tunneled Central Venous Catheter Placement 08/12/2017 Pre-Procedure Diagnosis: Multiorgan dysfunction Post-procedure Diagnosis:Multiorgan dysfunction Upper Lining Cementer: Darrell Cancino Light Technician: None Sedation: None. 1% lidocaine local anesthesia. Estimate blood loss: <5 mL Blood administered: None Complications: None Implants/Grafts: 16 cm 7-[place]wan[place] 3 lumen CVC Specimen: None Procedure: Informed consent was obtained and the patient positioned supine in the ICU. A timeout was performed, followed by preliminary ultrasound of the right internal jugular vein (see findings below). The right neck was prepped and draped in standard fashion. Using real-time ultrasound guidance a 18 gauge vascular needle was used to access the right internal jugular vein. An image was stored in the electronic medical record. A wire was advanced while monitoring the patient's cardiac rhythm and the needle exchanged for a non-tunneled central venous catheter using Seldinger technique. At the end of the procedure the catheter was flushed, secured to the skin and a sterile dressing applied. The patient tolerated the procedure well and without immediate complication. Findings: Patent right internal jugular vein as demonstrated by normal ultrasound compressibility. Impression: Successful placement of a non-tunneled right internal jugular central venous catheter using ultrasound guidance. This report was generated with voice-recognition technology. Errors in metal can inspector can occur. Please interpret accordingly and contact a radiologist if there are any questions regarding the report. Signed by: Dr. Reynaldo Cancino M.D. on 08/12/2017 2:55 PM
--- NOTE | 2017-08-12 14:59 | Diagnostic Imaging Report ---
Non-tunneled Central Venous Catheter Placement 08/12/2017 Pre-Procedure Diagnosis: Multiorgan dysfunction Post-procedure Diagnosis:Multiorgan dysfunction Secretary To Board Of Commissioners: Darrell Cancino School Teacher: None Sedation: None. 1% lidocaine local anesthesia. Estimate blood loss: <5 mL Blood administered: None Complications: None Implants/Grafts: 16 cm 7-[place] 3 lumen CVC Specimen: None Procedure: Informed consent was obtained and the patient positioned supine in the ICU. A timeout was performed, followed by preliminary ultrasound of the right internal jugular vein (see findings below). The right neck was prepped and draped in standard fashion. Using real-time ultrasound guidance a 18 gauge vascular needle was used to access the right internal jugular vein. An image was stored in the electronic medical record. A wire was advanced while monitoring the patient's cardiac rhythm and the needle exchanged for a non-tunneled central venous catheter using Seldinger technique. At the end of the procedure the catheter was flushed, secured to the skin and a sterile dressing applied. The patient tolerated the procedure well and without immediate complication. Findings: Patent right internal jugular vein as demonstrated by normal ultrasound compressibility. Impression: Successful placement of a non-tunneled right internal jugular central venous catheter using ultrasound guidance. This report was generated with voice-recognition technology. Errors in senior technical specialist can occur. Please interpret accordingly and contact a radiologist if there are any questions regarding the report. Signed by: Dr. Reynaldo Cancino M.D. on 08/12/2017 2:55 PM
[2017-08-12] MEDS ORDERED: SODIUM CHLORIDE 0.9% 1000ML 1,000 ML IV SCH (15:00)
[2017-08-12] MEDS ORDERED: VASOPRESSIN 100 UNIT in DEXTROSE 5% 100ML 100 ML IV PRN (18:00)
[2017-08-12] MEDS ORDERED: SODIUM CHLORIDE 0.9% 1000ML 1,000 ML ONE (18:04)
[2017-08-12] MEDS: SODIUM BICARBONATE 8.4% SYRING 150 ML in DEXTROSE 5% 1,000 ML IV SCH (18:40)
--- NOTE | 2017-08-12 19:01 | Consultation ---
DATE OF CONSULTATION: August 12, 2017 HISTORY OF PRESENT ILLNESS: Mr. Fernando Casiano is a 72-year-old gentleman who has been admitted with cellulitis and probable ischemic of the right lower extremity here. Right lower extremity arterial bypass surgery done at [facility] about 3 weeks ago. Has been following up with Dr. Jones for wound care. Currently lying supine. No apparent distress relatively hypotensive and was transferred to the ICU. He is currently awake and alert. He has underlying history of DVT and prior PE in the past. Has been on Coumadin in the past. History of COPD. History of cancer of lungs, status post lobectomy bilaterally. History of PE in 2012. History of chronic kidney disease stage 3. History of partial right lung resection. He has had a prior history of nephrolithiasis. CURRENT LABS: Show white count 5.96. Hemoglobin 11. Sodium 141. Potassium 5. Bicarbonate 19. BUN 88. Creatinine 3.84. Has a magnesium level of 0.8 which has been replaced. PHYSICAL EXAMINATION GENERAL: Currently lying supine. No apparent distress. VITALS: At the moment, blood pressure 85 systolic, pulse rate 90, afebrile. HEAD AND NECK: Corneae clear. Oral mucosa moist. Neck veins flat. LUNGS: Supine exam relatively clear. HEART: S1 and S2 audible. ABDOMEN: Soft and nontender. LOWER EXTREMITY EXAMINATION: Shows diffuse redness of the right lower extremity. There is a dressing noted over the ankle and calf area. Left lower extremity no edema. CURRENT MEDICATIONS: Patient is on daptomycin 500 mg IV q. 48 h. Vancomycin q.12, which has been stopped. Allopurinol 300 mg daily. Cordarone 200 mg daily, which has been on hold because of hypotensive state. Aspirin 81 mg daily. Atenolol which has been stopped. Atorvastatin 20 mg at bedtime. Celexa 20 mg daily. Hydrocodone tablets. Meropenem 500 mg IV q.12. Albuterol nebulizer. Morphine p.r.n. Omeprazole 20 mg daily. Lyrica 50 mg p.o. b.i.d., which I am going to hold given the worsening of kidney function. He is also on warfarin. He was Azilsartan and Chlorthalidone, which has appropriately been stopped, but I see another order of Azilsartan and Chlorthalidone 0.5 mg tablet daily, which I am going to remove from the MAR and discontinue. SOCIAL HISTORY: Does not smoke or drink. FAMILY HISTORY: Significant for hypertension. IMPRESSION AND PLAN 1. Hypotensive state on empiric antibiotics with vascular compromise, right lower extremity, possible cellulitis and ischemia. 2. Underlying [id number] kidney failure. Worsening kidney function. 3. Nonoliguric. He has a Lechuga catheter. Will give another liter of saline bolus. Start IV bicarbonate. Currently no acute indications for dialysis. He has underlying acute tubular necrosis. Please see orders. Job#: [id number]
--- NOTE | 2017-08-12 20:37 | Consultation ---
DATE OF CONSULTATION: August 12, 2017 WOUND CONSULTATION Thank you, Dr. Hong, for asking me to see this patient. HISTORY OF PRESENT ILLNESS: A 72-year-old male patient with history of coronary artery disease, peripheral vascular disease, chronic nonhealing ulcer to the right great toe. The patient was following at [facility] for osteomyelitis of the right great toe. Due to nonhealing toe ulcer and peripheral vascular disease, the patient underwent bypass to the right lower extremity. Following surgery, the patient developed postsurgical seroma to the surgical site at 2 different sites, 1 at the right medial thigh and 1 at the right upper leg. The patient was getting treatment with the wound VAC therapy. He was seen at would clinic yesterday with increasing pain, redness, warmth, tenderness to the right leg. The patient was admitted for cellulitis for antibiotic therapy. Today his right dorsal foot is slightly discolored and mottled and also slightly cold to touch compared to the upper leg. The patient also has increasing pain from the ankle to the right upper thigh. PAST MEDICAL HISTORY: DVT with PE in 2011, on anticoagulation, peripheral vascular disease, hypertension, COPD, obstructive sleep apnea, history of atrial fibrillation, use of CPAP therapy at home. Also has history of lung cancer, status post lobectomy; coronary artery disease, status post stent placement; and chronic kidney disease. ALLERGIES: TO CODEINE. PERSONAL HISTORY: Stopped smoking in 2000 and stopped drinking alcohol in 2011. PHYSICAL EXAMINATION VITAL SIGNS: Blood pressure 97/50, pulse of 82. HEENT: Normal. NECK: No JVD. LUNGS: Diminished air entry at the bases. CVS: Normal. ABDOMEN: Soft, protuberant. LOWER EXTREMITIES: Right lower extremity: The patient has wound to the right medial lower thigh, measures approximately 2.8 x 1.5 x 1 cm with tunneling at 12 o'clock position. On the right medial leg, the patient has another ulcer, measures 3 x 1.5 x 0.5 cm with undermining between 7 and 10 o'clock position for 2 cm. Copious clear serous drainage. The patient has a wound VAC at this time. Also periwound has some redness, tenderness and warmth. Right leg: The patient has wound on the right great toe. Great toe has some bluish discoloration and there is small area of necrotic discoloration seen to the right 4th toe which is new and discoloration mottling to the right ankle. ASSESSMENT: Right thigh and right leg postsurgical seroma with cellulitis of the right leg, also new changes of discoloration to the right ankle, rule out any arterial occlusive disease. PLAN: Continue wound VAC, IV antibiotics. Will do arterial Doppler of right lower extremity. Job#: [id number] GE
[2017-08-12] MEDS: ATORVASTATIN 20 MG TAB PO SCH (21:00)
[2017-08-12] MEDS: PANTOPRAZOLE 40 MG 10ML VIAL IV SCH (21:25)
--- NOTE | 2017-08-12 21:56 | Diagnostic Imaging Report ---
ABDOMEN-1VIEW (KUB) Clinical history: \S\abd distention and vomiting r/o ileus \S\[id number] \S\2114 \S\Y Technique: AP view abdomen Comparison: 05/29/2017 Findings: Limited by portable technique. Partially imaged catheter over the SVC. NG tube terminates over the expected stomach. Minimal diffuse gaseous distention of bowel. Impression: Findings which may reflect mild ileus. Signed by: Dr Linda Hayward MD on 08/12/2017 9:52 PM
--- NOTE | 2017-08-12 23:39 | Progress Note ---
DATE: August 12, 2017 Mr. Casiano is a 72-year-old gentleman, who has history of atherosclerotic disease, peripheral vascular disease, DVT, pulmonary embolism in 2012, COPD, obesity, lung cancer, status post lobectomy, hypertension, coronary artery disease, history of peripheral vascular disease, status post bypass in the right lower extremity, who has been having problems with infection in his right lower extremity for some time. The patient was admitted on the with fever and chills. He does have a wound on his right lower extremity. The patient has pain, on several courses of IV antibiotic and then, oral antibiotic. Now, has been having worsening condition on his right lower extremity. He was per the wound care as an outpatient. He had a bypass surgery done in the [facility] a couple of months ago. The patient had seroma in surgical the site, on 2 different sites and he was getting treatment with wound VAC and oral antibiotic, but now is presenting with redness and swelling of his legs, so patient comes in. He does have history of smoking, but he quit recently. The patient has a right lower extremity redness and swelling. He has 2 wounds on the right thigh, one is 3 x 1.5 x 1 cm tunneling at 12 o'clock on right middle leg and another ulcer about 3 x 2 x 0.5 cm with undermining between 7 and 10 o'clock. There is drainage noted on the leg color. So, this patient comes in on August 11. I was asked to see him. Please refer to for consult first. REVIEW OF SYSTEMS HEENT: Negative. PULMONARY: Negative. CARDIAC: Negative. : Negative. SKIN: There is no rash. PHYSICAL EXAMINATION GENERAL: He is currently alert, oriented, does not seem to be in acute distress. VITALS: Stable. Currently afebrile. HEENT: Not icteric. NECK: Supple. CHEST: Clear to auscultation. ABDOMEN: Soft. Bowel sounds present. EXTREMITIES: No edema. Legs as mentioned above. IMPRESSIONS 1. Right leg infection, cellulitis, dehiscence of the wound. 2. The patient has peripheral vascular disease. 3. Chronic kidney disease with creatinine of 3.8. Will put him on vancomycin 6 mg/kg IV piggyback given 48 hours. Meropenem 500 mg IV piggyback q.24 h. Wound care. I am concerned about this patient. Will follow with you. Patient does have severe peripheral vascular disease as mentioned above. Further recommendations to follow. Job#: [id number] CQ
[2017-08-13] VITALS (105 sets, daily range): BP systolic 65–142; BP diastolic 40–89
[2017-08-13 05:40] LABS: BASOPHILS # (AUTO) 0.1 (0.0-0.1); BASOPHILS % 0.9 % (0.0-1.0); HEMATOCRIT 29.9 % (38.2-49.6); HEMOGLOBIN 9.7 g/dL (14.0-18.0); LYMPHOCYTES # (AUTO) 0.3 (1.0-3.2); LYMPHOCYTES % 3.5 % (18.0-39.1); MEAN CORPUSCULAR HEMOGLOBIN 30.7 pg (28-32); MEAN CORPUSCULAR HGB CONC 32.4 g/dL (31-35); MEAN CORPUSCULAR VOLUME 94.6 fL (81-99); MONOCYTES # (AUTO) 0.2 (0.2-0.8); MONOCYTES % 2.8 % (4.4-11.3); NEUTROPHILS # (AUTO) 7.2 (2.1-6.9); NEUTROPHILS % 90.3 % (38.7-80.0); PLATELET COUNT 167 x10e3/uL (140-360); RED BLOOD COUNT 3.16 x10e6/uL (4.3-5.7); RED CELL DISTRIBUTION WIDTH 17.9 % (11.7-14.4)
[2017-08-13] MEDS: SODIUM BICARBONATE 8.4% SYRING 150 ML in DEXTROSE 5% 1,000 ML IV SCH ×2 (05:58→18:51)
[2017-08-13 06:11] LABS: ALBUMIN 2.1 g/dL (3.5-5.0); ALBUMIN/GLOBULIN RATIO 0.7 (0.8-2.0); ANION GAP 14.6 mmol/L (8-16); CALCIUM 8.5 mg/dL (8.4-10.2); CREATININE, SERUM 4.35 mg/dL (0.72-1.25); POTASSIUM 4.6 mmol/L (3.5-5.1)
[2017-08-13 06:34] LABS: INR 3.31; PROTHROMBIN TIME 31.6 seconds (11.9-14.5)
[2017-08-13 08:08] LABS: BAND NEUTROPHILS % (MANUAL) 27 %; LYMPHOCYTES % (MANUAL) 2 % (19-48); METAMYELOCYTES % (MANUAL) 2 % (0-0); MONOCYTES % (MANUAL) 8 % (3.4-9.0); NEUTROPHILS % (MANUAL) 61 % (40-74)
[2017-08-13 08:11] LABS: ANISOCYTOSIS SLIGHT; HYPOCHROMASIA SLIGHT; PLATELET ESTIMATE ADEQUATE; POIKILOCYTOSIS SLIGHT; RBC MORPHOLOGY COMMENT NORMAL; SMUDGE CELLS FEW
[2017-08-13 08:12] LABS: PLATELET MORPHOLOGY COMMENT FEW LARGE
[2017-08-13] MEDS: OMEPRAZOLE 20 MG CAP PO SCH (09:00)
[2017-08-13] MEDS ORDERED: MEROPENEM 500MG 500 MG in SODIUM CHLORIDE 0.9% 50ML 50 ML IV SCH (09:00)
[2017-08-13] MEDS: MORPHINE SULFATE 2 MG/ML SYR IV PRN ×2 (09:04→14:02)
[2017-08-13] MEDS: COLLAGENASE OINTMENT 30 GM TUBE TP SCH (09:14)
[2017-08-13] MEDS: PANTOPRAZOLE 40 MG 10ML VIAL IV SCH ×2 (09:23→20:39)
[2017-08-13] MEDS: MEROPENEM 500 MG VIAL IV SCH (09:23)
[2017-08-13] MEDS: ASPIRIN 81 MG CHEW TAB PO SCH (09:24)
[2017-08-13] MEDS: CITALOPRAM HYDROBROMIDE 20 MG TAB PO SCH (09:24)
[2017-08-13] MEDS: ALLOPURINOL 300 MG TAB PO SCH (09:25)
[2017-08-13] MEDS: CARBIDOPA/LEVODOPA 25/100 TAB PO SCH ×3 (09:25→20:39)
[2017-08-13] MEDS: POTASSIUM CITRATE 10 MEQ TAB PO SCH (09:25)
[2017-08-13] MEDS ORDERED: PHYTONADIONE 10 MG/ML AMP SC ONE (10:00)
--- NOTE | 2017-08-13 13:23 | Consultation ---
DATE OF CONSULTATION: August 12, 2017 PULMONARY CRITICAL CARE CONSULTATION REASON FOR CONSULTATION: Abnormal CT chest and sepsis. HISTORY OF PRESENT ILLNESS: Mr. Casiano is [id number] male known to Dr. Arenas from previous visit. The patient has a history of emphysema. He has been a smoker. He smoked for 50+ years. He was admitted here with the complaints of right leg erythema, pain and swelling. The patient had right leg bypass and has a wound which was open and the patient has a wound VAC for that. He developed cellulitis and sepsis and the patient is started on IV antibiotics per Dr. Brewer's recommendation. The patient became septic and had hypotension with acute kidney injury and was transferred to ICU. He was hypotensive as well. He is also having some coffee ground emesis for which I have put an NG tube. He has a history of lung cancer and patient is status post lobectomy. History of PE in 2012 and CKD as well. Also has history of partial lung resection. REVIEW OF SYSTEMS: GENERAL: Was having fever and chills. HEAD: Denies any head trauma. ENT: Denies any earaches. CVS: Denies any chest pain. RESPIRATORY: Denies any shortness of breath. GI: Coffee ground emesis. The rest of the review systems is negative except as in HPI. PAST MEDICAL HISTORY: History of lung cancer, status post resection and lobectomy; history of PE in 2011; coronary artery disease; CABG; OR; CKD 3; lung cancer; COPD. FAMILY AND SOCIAL HISTORY: He lives with his . He is ex-smoker, [id number]. He denies any family history of heart disease. PHYSICAL EXAMINATION: VITAL SIGNS: Temperature 101.0, pulse of 99, blood pressure is 70/49, respiratory rate of 18, O2 sat 98% on 2 L. HEENT: Head atraumatic, normocephalic. Pupils are reactive. NECK: Supple. CHEST: Clear to auscultation bilaterally. Reduced air entry. HEART: S1, S2 audible. No murmurs, gallops or rubs. ABDOMEN: Distended. Bowel sounds audible. No hepatosplenomegaly. EXTREMITIES: Right lower extremity is red, erythematous. Left lower extremity, trace pedal edema. LABORATORY DATA: White count of 5.9, hemoglobin 11.0, platelets 202,000. Chemistry: Sodium 141, potassium 5.0, chloride 111, BUN 88, creatinine 3.84. Creatinine was 1.59 in April of 2016, last on in the record here. CT of the chest: I have reviewed the images. The patient is showing tracheomalacia and scarring from previous resection along with emphysema. ASSESSMENT AND PLAN: Mr. Casiano is a 72-year-old male, who was admitted with cellulitis and sepsis. CT of the chest is showing evidence of tracheomalacia, previous history of lobectomy for lung cancer and has history of emphysema as well. CURRENT PROBLEMS: 1. Sepsis with septic shock secondary to cellulitis present on admission. Continue the patient on IV antibiotics per ID recommendation. Vasopressin has been started. Levophed if needed for hypotension. 2. Acute kidney injury, likely ATN. Nephrology is following the patient. 3. Tracheomalacia on CT scan due to lobectomy, emphysema. The patient has severe tracheomalacia. At this point, no intervention is needed. The patient is breathing well and saturating well. I have discussed the case with Dr. Hong. Once the acute phase is over, possibly we can get opinion from tertiary center about stent placement for tracheomalacia if it is symptomatic. 4. The patient is getting hyperbaric treatment for leg wound and the is concerned about the pleuritic pain he sometimes has when he is in hyperbaric chamber. Could be due to the air pressure, however, I am not certain about the etiology of this pain when he goes into hyperbaric chamber. 5. While I was talking to the patient, the patient started vomiting coffee ground material. I have put an NG tube, possibly may have small GI bleed versus bilious vomiting. Will continue to follow. CRITICAL CARE TIME SPENT: 50 minutes. Thank you for this consult. Job#: [id number]
[2017-08-13] MEDS ORDERED: LIDOCAINE HCL 1% LOCAL INJ 20 ML VIAL ONE (13:25)
--- NOTE | 2017-08-13 14:25 | Diagnostic Imaging Report ---
PROCEDURE:NON-TUNNELLED CVC CATH PLACMNT COMPARISON:None. INDICATIONS: Acute kidney injury COMPLICATIONS: No immediate MEDICATIONS: Lidocaine 1% for local anesthesia BLOOD LOSS: Minimal Blood administered: None Specimens: None Implants: 12 [place] 20 cm non-tunneled hemodialysis catheter Fluoroscopy time: 0.6 minutes Air Kerma: 18.59 mGy PROCEDURE: Informed consent was obtained and documented in the medical record after discussion of risks and benefits. The right cervical region was prepped and draped in the standard sterile fashion. Preliminary sonographic evaluation confirmed patency of the right internal jugular vein, evidenced by compressibility. 1% lidocaine was infiltrated into the skin and subcutaneous tissues for local anesthesia. Then under continuous sonographic guidance, an 18 gauge single wall needle was used to access the right internal jugular vein. A permanent sonographic image was stored in the medical record. A 0.035 inch J-wire was advanced centrally into the inferior vena cava under fluoroscopic guidance. The needle was removed over the wire and the tract was dilated. Then a 12 [place], 20 cm dual lumen hemodialysis catheter was advanced over the wire to full depth. The wire was removed and the catheter tip was positioned at the superior cavoatrial junction. Both lumens showed adequate bidirectional flow and were flushed with sterile saline. The catheter was secured to the skin with monofilament nylon suture and a sterile dressing was applied. The patient tolerated the procedure well without immediate complication. Findings: Patent right internal jugular vein. CONCLUSION: Successful placement of a 12 [place] 20 cm temporary hemodialysis catheter via a right internal jugular approach without immediate complication. Dictated by: Satinder Guzman M.D. on 08/13/2017 at 14:29 Electronically approved by: Satinder Guzman M.D. on 08/13/2017 at 14:29
--- NOTE | 2017-08-13 14:25 | Diagnostic Imaging Report ---
PROCEDURE:NON-TUNNELLED CVC CATH PLACMNT COMPARISON:None. INDICATIONS: Acute kidney injury COMPLICATIONS: No immediate MEDICATIONS: Lidocaine 1% for local anesthesia BLOOD LOSS: Minimal Blood administered: None Specimens: None Implants: 12 [place] 20 cm non-tunneled hemodialysis catheter Fluoroscopy time: 0.6 minutes Air Kerma: 18.59 mGy PROCEDURE: Informed consent was obtained and documented in the medical record after discussion of risks and benefits. The right cervical region was prepped and draped in the standard sterile fashion. Preliminary sonographic evaluation confirmed patency of the right internal jugular vein, evidenced by compressibility. 1% lidocaine was infiltrated into the skin and subcutaneous tissues for local anesthesia. Then under continuous sonographic guidance, an 18 gauge single wall needle was used to access the right internal jugular vein. A permanent sonographic image was stored in the medical record. A 0.035 inch J-wire was advanced centrally into the inferior vena cava under fluoroscopic guidance. The needle was removed over the wire and the tract was dilated. Then a 12 [place], 20 cm dual lumen hemodialysis catheter was advanced over the wire to full depth. The wire was removed and the catheter tip was positioned at the superior cavoatrial junction. Both lumens showed adequate bidirectional flow and were flushed with sterile saline. The catheter was secured to the skin with monofilament nylon suture and a sterile dressing was applied. The patient tolerated the procedure well without immediate complication. Findings: Patent right internal jugular vein. CONCLUSION: Successful placement of a 12 [place] 20 cm temporary hemodialysis catheter via a right internal jugular approach without immediate complication. Dictated by: Satinder Guzman M.D. on 08/13/2017 at 14:29 Electronically approved by: Satinder Guzman M.D. on 08/13/2017 at 14:29
--- NOTE | 2017-08-13 14:26 | Diagnostic Imaging Report ---
PROCEDURE:ULTRASOUND GUIDANCE FOR VASCULAR ACCESS COMPARISON:None. INDICATIONS:HD CATH FINDINGS:Right internal jugular vein is noted to be patent. Ultrasound guidance was utilized for access for central line placement. CONCLUSION:Patent right internal jugular vein. Successful ultrasound guidance for central line placement. Dictated by: Satinder Guzman M.D. on 08/13/2017 at 14:29 Electronically approved by: Satinder Guzman M.D. on 08/13/2017 at 14:29
--- NOTE | 2017-08-13 17:12 | Diagnostic Imaging Report ---
PROCEDURE:US RETROPERITONEAL ( KIDNEY ). COMPARISON:Patients [facility], CT, CT ABDOMEN/PELVIS WO, 12/09/2011, 16:34. Patients [facility], CT, CT ABDOMEN/PELVIS WO, 05/19/2017, 16:19. INDICATIONS:ATN TECHNIQUE: Girard-scale and color sonographic images of the bilateral kidneys and bladder where obtained in transverse and longitudinal planes. FINDINGS: RIGHT KIDNEY: Measures 10.9 cm in length. The echotexture is increased. The cortex is thin. There are several cysts present, the largest in the lower pole measuring 5.3 x 4.8 x 5.2 cm. A lesion in the lower pole appears has low level internal echoes and some posterior through transmission and measures 18 x 14 x 28 mm. No renal calculus or hydronephrosis. No perinephric fluid collection. LEFT KIDNEY: Measures 12.4 cm in length. The echotexture is increased. The cortex is thinned. A lower pole cyst measures 3.4 x 3.2 x 3.7 cm. No renal calculus or hydronephrosis. Bladder: Collapsed around a Lechuga catheter. No free fluid in the pelvis. Survey images of the liver and spleen demonstrate no focal abnormality. CONCLUSION: 1. Bilateral renal cysts. One mass in the lower pole of the right kidney may represent a cyst but this is not conclusive. Recommend 6-12 month follow-up to confirm stability. Alternatively, MRI can be performed for further characterization. No intravenous contrast is needed. 2. Increased renal echotexture consistent with medical renal disease. No hydronephrosis or renal calculus. Dictated by: Rayray Gillis M.D. on 08/13/2017 at 17:15 Electronically approved by: Rayray Gillis M.D. on 08/13/2017 at 17:15
[2017-08-13] MEDS ORDERED: HEPARIN SOD (PORCINE) 1000 UNIT/ML SDV ONE (17:23)
[2017-08-13] MEDS ORDERED: HEPARIN SOD (PORCINE) 1000 UNIT/ML SDV IV PRN (18:00)
[2017-08-13] MEDS ORDERED: SODIUM CHLORIDE 0.9% 1000ML 2,000 ML IV PRN (18:00)
[2017-08-13] MEDS ORDERED: MANNITOL 25% 12.5GM/50 ML VIAL IV PRN (18:00)
[2017-08-13] MEDS ORDERED: SODIUM CHLORIDE 0.9% 250ML 500 ML IV PRN (18:00)
[2017-08-13] MEDS ORDERED: ALBUMIN 25% 12.5GM 0.25 GM/ML BTL IV PRN (18:00)
[2017-08-13] MEDS ORDERED: AMIODARONE HCL 150 MG in DEXTROSE 5% 100ML 100 ML IV SCH (19:15)
[2017-08-13] MEDS ORDERED: AMIODARONE HCL 900 MG in DEXTROSE 5% 500ML 500 ML IV SCH (19:15)
[2017-08-13] MEDS ORDERED: AMIODARONE HCL 150 MG/100 ML BAG IV ONE (19:15)
[2017-08-13] MEDS: AMIODARONE HCL 900 MG in DEXTROSE 5 % 500ML BOTTLE 500 ML IV SCH (20:11)
[2017-08-13] MEDS: ATORVASTATIN 20 MG TAB PO SCH (20:39)
[2017-08-14] VITALS (51 sets, daily range): BP systolic 72–165; BP diastolic 50–90
[2017-08-14 06:13] LABS: ALBUMIN 1.8 g/dL (3.5-5.0); ALBUMIN/GLOBULIN RATIO 0.5 (0.8-2.0); ANION GAP 13.5 mmol/L (8-16); CALCIUM 9.1 mg/dL (8.4-10.2); CREATININE, SERUM 2.52 mg/dL (0.72-1.25); POTASSIUM 4.5 mmol/L (3.5-5.1)
[2017-08-14] MEDS: SODIUM BICARBONATE 8.4% SYRING 150 ML in DEXTROSE 5% 1,000 ML IV SCH (06:39)
[2017-08-14] MEDS: AMIODARONE HCL 900 MG in DEXTROSE 5 % 500ML BOTTLE 500 ML IV SCH (07:00)
[2017-08-14 08:16] LABS: BASOPHILS # (AUTO) 0.1 (0.0-0.1); BASOPHILS % 0.8 % (0.0-1.0); HEMATOCRIT 30.4 % (38.2-49.6); LYMPHOCYTES # (AUTO) 0.5 (1.0-3.2); LYMPHOCYTES % 3.7 % (18.0-39.1); MEAN CORPUSCULAR HGB CONC 32.9 g/dL (31-35); MEAN CORPUSCULAR VOLUME 94.1 fL (81-99); MONOCYTES # (AUTO) 0.3 (0.2-0.8); MONOCYTES % 1.9 % (4.4-11.3); NEUTROPHILS # (AUTO) 12.2 (2.1-6.9); NEUTROPHILS % 93.3 % (38.7-80.0); PLATELET COUNT 162 x10e3/uL (140-360); RED BLOOD COUNT 3.23 x10e6/uL (4.3-5.7); RED CELL DISTRIBUTION WIDTH 17.5 % (11.7-14.4)
[2017-08-14 08:50] LABS: BAND NEUTROPHILS % (MANUAL) 4 %; LYMPHOCYTES % (MANUAL) 5 % (19-48); MONOCYTES % (MANUAL) 4 % (3.4-9.0); NEUTROPHILS % (MANUAL) 87 % (40-74); PLATELET ESTIMATE ADEQUATE; PLATELET MORPHOLOGY COMMENT NORMAL; RBC MORPHOLOGY COMMENT NORMAL
[2017-08-14] MEDS: PANTOPRAZOLE 40 MG 10ML VIAL IV SCH ×2 (08:58→21:19)
[2017-08-14] MEDS: ASPIRIN 81 MG CHEW TAB PO SCH (08:59)
[2017-08-14] MEDS: COLLAGENASE OINTMENT 30 GM TUBE TP SCH (08:59)
[2017-08-14] MEDS: POTASSIUM CITRATE 10 MEQ TAB PO SCH (08:59)
[2017-08-14] MEDS: ALLOPURINOL 300 MG TAB PO SCH (08:59)
[2017-08-14] MEDS: CARBIDOPA/LEVODOPA 25/100 TAB PO SCH ×3 (08:59→21:19)
[2017-08-14] MEDS: CITALOPRAM HYDROBROMIDE 20 MG TAB PO SCH (08:59)
[2017-08-14] MEDS: OMEPRAZOLE 20 MG CAP PO SCH (09:00)
[2017-08-14] MEDS: DAPTOMYCIN 500 MG in SODIUM CHLORIDE 0.9% 100 ML IV SCH (10:10)
[2017-08-14] MEDS: MEROPENEM 500 MG VIAL IV SCH (10:10)
[2017-08-14] MEDS: AMIODARONE HCL 200 MG TAB PO SCH (11:15)
[2017-08-14 12:43] LABS: INR 1.2; PROTHROMBIN TIME 12.9 seconds (11.9-14.5)
[2017-08-14] MEDS: ATORVASTATIN 20 MG TAB PO SCH (21:19)
[2017-08-14] MEDS: HEPARIN SOD (PORCINE) 5,000 UNIT/ML VIAL SC SCH (21:19)
[2017-08-14] MEDS: MORPHINE SULFATE 2 MG/ML SYR IV PRN (22:34)
[2017-08-15] VITALS (34 sets, daily range): BP systolic 94–176; BP diastolic 54–143
[2017-08-15] MEDS: MORPHINE SULFATE 2 MG/ML SYR IV PRN ×3 (04:15→18:30)
[2017-08-15 05:55] LABS: BASOPHILS % 0.2 % (0.0-1.0); HEMATOCRIT 29.7 % (38.2-49.6); HEMOGLOBIN 9.5 g/dL (14.0-18.0); LYMPHOCYTES # (AUTO) 0.4 (1.0-3.2); MEAN CORPUSCULAR HEMOGLOBIN 30.2 pg (28-32); MEAN CORPUSCULAR VOLUME 94.3 fL (81-99); MONOCYTES # (AUTO) 0.4 (0.2-0.8); MONOCYTES % 3.1 % (4.4-11.3); NEUTROPHILS # (AUTO) 11.6 (2.1-6.9); NEUTROPHILS % 93.3 % (38.7-80.0); PLATELET COUNT 176 x10e3/uL (140-360); RED BLOOD COUNT 3.15 x10e6/uL (4.3-5.7); RED CELL DISTRIBUTION WIDTH 16.9 % (11.7-14.4)
[2017-08-15 06:19] LABS: ALBUMIN 1.7 g/dL (3.5-5.0); ALBUMIN/GLOBULIN RATIO 0.5 (0.8-2.0); ANION GAP 11.9 mmol/L (8-16); CALCIUM 9.4 mg/dL (8.4-10.2); CREATININE, SERUM 2.06 mg/dL (0.72-1.25); POTASSIUM 4.9 mmol/L (3.5-5.1)
[2017-08-15] MEDS: CITALOPRAM HYDROBROMIDE 20 MG TAB PO SCH (08:23)
[2017-08-15] MEDS: ASPIRIN 81 MG CHEW TAB PO SCH (08:23)
[2017-08-15] MEDS: PANTOPRAZOLE 40 MG 10ML VIAL IV SCH ×2 (08:23→20:55)
[2017-08-15] MEDS: CARBIDOPA/LEVODOPA 25/100 TAB PO SCH ×3 (08:24→20:55)
[2017-08-15] MEDS: COLLAGENASE OINTMENT 30 GM TUBE TP SCH (08:24)
[2017-08-15] MEDS: ALLOPURINOL 300 MG TAB PO SCH (08:24)
[2017-08-15] MEDS: AMIODARONE HCL 200 MG TAB PO SCH (08:24)
[2017-08-15] MEDS: OMEPRAZOLE 20 MG CAP PO SCH (08:25)
[2017-08-15] MEDS: POTASSIUM CITRATE 10 MEQ TAB PO SCH (08:25)
[2017-08-15] MEDS: HEPARIN SOD (PORCINE) 5,000 UNIT/ML VIAL SC SCH (08:27)
[2017-08-15] MEDS: METOPROLOL TARTRATE INJ 1 MG/ML VIAL IV PRN (09:10)
[2017-08-15] MEDS: MEROPENEM 500 MG VIAL IV SCH (09:51)
[2017-08-15 10:09] LABS: BAND NEUTROPHILS % (MANUAL) 17 %; LYMPHOCYTES % (MANUAL) 8 % (19-48); METAMYELOCYTES % (MANUAL) 1 % (0-0); MONOCYTES % (MANUAL) 1 % (3.4-9.0); NEUTROPHILS % (MANUAL) 73 % (40-74)
[2017-08-15 10:10] LABS: PLATELET ESTIMATE ADEQUATE; PLATELET MORPHOLOGY COMMENT NORMAL; RBC MORPHOLOGY COMMENT NORMAL
[2017-08-15] MEDS ORDERED: HEPARIN SOD (PORCINE) 1000 UNIT/ML SDV IV ONE (11:30)
[2017-08-15] MEDS: HEPARIN 25,000 UNIT/D5W 250ML 250 ML IV SCH (11:48)
[2017-08-15] MEDS: IPRATROPIUM BROMIDE 0.02% 2.5 ML NEB NEB SCH ×2 (13:30→22:00)
[2017-08-15] MEDS ORDERED: BISACODYL 5 MG TAB EC PO NR (17:30)
[2017-08-15] MEDS ORDERED: FUROSEMIDE INJ 10 MG/ML 2 ML VIAL ONE (18:50)
[2017-08-15] MEDS ORDERED: FUROSEMIDE INJ 10 MG/ML 2 ML VIAL IV ONE (19:00)
[2017-08-15] MEDS ORDERED: MINERAL OIL 132 ML BTL PR ONE (20:45)
[2017-08-15] MEDS: ATORVASTATIN 20 MG TAB PO SCH (20:55)
[2017-08-15] MEDS: PROMETHAZINE 25MG/ NS 50ML (IV) IV PRN (22:27)
[2017-08-16] VITALS (56 sets, daily range): BP systolic 103–199; BP diastolic 71–130
[2017-08-16] MEDS ORDERED: HYDRALAZINE HCL 20 MG/ML VIAL IV STA (03:42)
[2017-08-16] MEDS ORDERED: HYDRALAZINE HCL 20 MG/ML VIAL ONE (03:46)
[2017-08-16] MEDS: METOPROLOL TARTRATE INJ 1 MG/ML VIAL IV PRN ×2 (04:15→14:23)
[2017-08-16] MEDS ORDERED: LORAZEPAM INJ 2 MG/ML VIAL IV ONE (04:45)
--- NOTE | 2017-08-16 05:03 | Diagnostic Imaging Report ---
ABDOMEN-1VIEW (KUB) Clinical history: NG tube placement Technique: AP view abdomen Comparison: 08/12/2017 Findings: Degraded by motion artifact. NG tube overlies the gastric antrum. Right upper quadrant clips. Bowel gas and lung bases are not evaluated. Impression: Motion artifact with NG tube overlying the gastric antrum. Signed by: Dr Linda Hayward MD on 08/16/2017 4:59 AM
[2017-08-16] MEDS: METOCLOPRAMIDE HCL 10 MG/2ML VIAL IV SCH ×3 (05:19→17:37)
[2017-08-16 05:47] LABS: BASOPHILS % 0.2 % (0.0-1.0); HEMATOCRIT 34.3 % (38.2-49.6); HEMOGLOBIN 10.8 g/dL (14.0-18.0); LYMPHOCYTES # (AUTO) 0.3 (1.0-3.2); LYMPHOCYTES % 3.6 % (18.0-39.1); MEAN CORPUSCULAR HEMOGLOBIN 30.2 pg (28-32); MEAN CORPUSCULAR HGB CONC 31.5 g/dL (31-35); MEAN CORPUSCULAR VOLUME 95.8 fL (81-99); MONOCYTES # (AUTO) 0.3 (0.2-0.8); MONOCYTES % 3.9 % (4.4-11.3); NEUTROPHILS # (AUTO) 7.4 (2.1-6.9); NEUTROPHILS % 91.2 % (38.7-80.0); PLATELET COUNT 198 x10e3/uL (140-360); RED BLOOD COUNT 3.58 x10e6/uL (4.3-5.7); RED CELL DISTRIBUTION WIDTH 16.8 % (11.7-14.4)
[2017-08-16] MEDS ORDERED: FUROSEMIDE INJ 10 MG/ML 2 ML VIAL IV SCH (06:00)
[2017-08-16] MEDS: METOPROLOL TARTRATE INJ 1 MG/ML VIAL IV SCH ×3 (06:00→22:00)
[2017-08-16 06:14] LABS: ALBUMIN 1.9 g/dL (3.5-5.0); ALBUMIN/GLOBULIN RATIO 0.5 (0.8-2.0); ANION GAP 15.9 mmol/L (8-16); CALCIUM 9.9 mg/dL (8.4-10.2); CREATININE, SERUM 2.02 mg/dL (0.72-1.25); POTASSIUM 4.9 mmol/L (3.5-5.1)
[2017-08-16] MEDS: IPRATROPIUM BROMIDE 0.02% 2.5 ML NEB NEB SCH ×3 (06:57→22:30)
[2017-08-16] MEDS ORDERED: MAGNESIUM SULFATE 2GM/50ML 50 ML IV ONE (08:00)
[2017-08-16] MEDS: COLLAGENASE OINTMENT 30 GM TUBE TP SCH (09:00)
[2017-08-16] MEDS ORDERED: MINERAL OIL 132 ML BTL PR ONE (09:00)
[2017-08-16] MEDS: CITALOPRAM HYDROBROMIDE 20 MG TAB PO SCH (10:56)
[2017-08-16] MEDS: ASPIRIN 81 MG CHEW TAB PO SCH (10:56)
[2017-08-16] MEDS: AMIODARONE HCL 200 MG TAB PO SCH (10:56)
[2017-08-16] MEDS: ALLOPURINOL 300 MG TAB PO SCH (10:56)
[2017-08-16] MEDS: MEROPENEM 500 MG VIAL IV SCH (10:56)
[2017-08-16] MEDS: PANTOPRAZOLE 40 MG 10ML VIAL IV SCH ×2 (10:56→21:00)
[2017-08-16] MEDS: DAPTOMYCIN 500 MG in SODIUM CHLORIDE 0.9% 100 ML IV SCH (10:56)
[2017-08-16] MEDS: HEPARIN 25,000 UNIT/D5W 250ML 250 ML IV SCH (11:19)
[2017-08-16] MEDS: MORPHINE SULFATE 2 MG/ML SYR IV PRN ×2 (12:50→15:50)
--- NOTE | 2017-08-16 15:27 | Diagnostic Imaging Report ---
PROCEDURE:X-RAY ABDOMEN - KUB COMPARISON:KUB 08/12/2017. INDICATIONS:CONSTIPATION FINDINGS: NG tube is in the stomach. There are no dilated loops of bowel to suggest obstruction. There are no masses or abnormal calcifications. There is no evidence of free air. No acute osseous abnormalities are present. Mild to moderate degenerative changes in the lumbar spine. Right upper quadrant cholecystectomy clips. CONCLUSION: No acute abdominal abnormality. No constipation. Dictated by: Rafita Edouard M.D. on 08/16/2017 at 15:30 Electronically approved by: Rafita Edouard M.D. on 08/16/2017 at 15:30
[2017-08-16] MEDS ORDERED: LORAZEPAM INJ 2 MG/ML VIAL IV PRN (16:30)
[2017-08-16] MEDS: ATORVASTATIN 20 MG TAB PO SCH (21:00)
[2017-08-17] VITALS (51 sets, daily range): BP systolic 135–178; BP diastolic 71–141
[2017-08-17] MEDS ORDERED: HEPARIN 25,000U/0.45% NS 250ML 250 ML ONE (03:55)
[2017-08-17] MEDS: METOCLOPRAMIDE HCL 10 MG/2ML VIAL IV SCH ×4 (06:00→18:25)
[2017-08-17] MEDS: METOPROLOL TARTRATE INJ 1 MG/ML VIAL IV SCH ×3 (06:00→21:24)
[2017-08-17 06:13] LABS: BASOPHILS % 0.2 % (0.0-1.0); HEMATOCRIT 33.9 % (38.2-49.6); HEMOGLOBIN 10.9 g/dL (14.0-18.0); LYMPHOCYTES # (AUTO) 0.8 (1.0-3.2); MEAN CORPUSCULAR HEMOGLOBIN 30.3 pg (28-32); MEAN CORPUSCULAR HGB CONC 32.2 g/dL (31-35); MEAN CORPUSCULAR VOLUME 94.2 fL (81-99); MONOCYTES # (AUTO) 0.4 (0.2-0.8); MONOCYTES % 4.4 % (4.4-11.3); NEUTROPHILS # (AUTO) 7.1 (2.1-6.9); NEUTROPHILS % 83.7 % (38.7-80.0); PLATELET COUNT 251 x10e3/uL (140-360); RED CELL DISTRIBUTION WIDTH 16.6 % (11.7-14.4)
[2017-08-17 06:35] LABS: ALBUMIN/GLOBULIN RATIO 0.5 (0.8-2.0); ANION GAP 15.2 mmol/L (8-16); CALCIUM 9.2 mg/dL (8.4-10.2); CREATININE, SERUM 1.87 mg/dL (0.72-1.25); MAGNESIUM 1.5 MG/DL (1.3-2.1); PHOSPHORUS 4.1 MG/DL (2.3-4.7); POTASSIUM 4.2 mmol/L (3.5-5.1)
[2017-08-17] MEDS: IPRATROPIUM BROMIDE 0.02% 2.5 ML NEB NEB SCH ×3 (06:45→19:05)
[2017-08-17] MEDS: HEPARIN 25,000 UNIT/D5W 250ML 250 ML IV SCH (07:51)
[2017-08-17] MEDS: PROMETHAZINE 25MG/ NS 50ML (IV) IV PRN ×2 (08:31→12:13)
[2017-08-17] MEDS: MINERAL OIL 132 ML BTL PR ONE ×2 (08:53→17:05)
[2017-08-17] MEDS: ASPIRIN 81 MG CHEW TAB PO SCH (09:05)
[2017-08-17] MEDS: AMIODARONE HCL 200 MG TAB PO SCH (09:05)
[2017-08-17] MEDS: PANTOPRAZOLE 40 MG 10ML VIAL IV SCH ×2 (09:05→21:24)
[2017-08-17] MEDS: CITALOPRAM HYDROBROMIDE 20 MG TAB PO SCH (09:05)
[2017-08-17] MEDS: MEROPENEM 500 MG VIAL IV SCH (09:06)
[2017-08-17] MEDS: ALLOPURINOL 300 MG TAB PO SCH (09:06)
[2017-08-17] MEDS: COLLAGENASE OINTMENT 30 GM TUBE TP SCH (09:07)
[2017-08-17] MEDS: HYDRALAZINE HCL 20 MG/ML VIAL IV PRN (11:16)
[2017-08-17] MEDS: CLONIDINE HCL 0.2 MG/24 HR 1 EA PATCH TOP SCH (14:46)
[2017-08-17] MEDS: ONDANSETRON HCL 4 MG ORAL DISINTEGRATING TAB PO PRN (15:00)
[2017-08-17] MEDS: MUPIROCIN 2% OINT 22 GM TUBE TOP SCH (16:20)
[2017-08-17] MEDS ORDERED: MINERAL OIL 132 ML BTL PR ONE (17:06)
[2017-08-17 18:51] LABS: AMYLASE 116 U/L (25-125); LIPASE 97 U/L (8-78)
[2017-08-17] MEDS ORDERED: BISACODYL 10 MG SUPP PR ONE (19:35)
[2017-08-17] MEDS: MORPHINE SULFATE 2 MG/ML SYR IV PRN (19:43)
[2017-08-17] MEDS: ATORVASTATIN 20 MG TAB PO SCH (21:24)
[2017-08-18] VITALS (17 sets, daily range): BP systolic 93–169; BP diastolic 68–104
[2017-08-18] MEDS: METOCLOPRAMIDE HCL 10 MG/2ML VIAL IV SCH ×4 (01:17→18:30)
[2017-08-18 05:13] LABS: BASOPHILS % 0.3 % (0.0-1.0); EOSINOPHILS % 0.1 % (0.0-6.0); HEMATOCRIT 30.8 % (38.2-49.6); HEMOGLOBIN 9.9 g/dL (14.0-18.0); LYMPHOCYTES # (AUTO) 0.5 (1.0-3.2); LYMPHOCYTES % 6.7 % (18.0-39.1); MEAN CORPUSCULAR HEMOGLOBIN 30.4 pg (28-32); MEAN CORPUSCULAR HGB CONC 32.1 g/dL (31-35); MEAN CORPUSCULAR VOLUME 94.5 fL (81-99); MONOCYTES # (AUTO) 0.2 (0.2-0.8); MONOCYTES % 2.6 % (4.4-11.3); NEUTROPHILS # (AUTO) 6.6 (2.1-6.9); NEUTROPHILS % 86.4 % (38.7-80.0); PLATELET COUNT 256 x10e3/uL (140-360); RED BLOOD COUNT 3.26 x10e6/uL (4.3-5.7)
[2017-08-18] MEDS ORDERED: CHLORPROMAZINE HCL INJ 25 MG/ML AMP INJ ONE ×2 (05:45→06:00)
[2017-08-18 05:48] LABS: ALBUMIN 1.9 g/dL (3.5-5.0); ALBUMIN/GLOBULIN RATIO 0.6 (0.8-2.0); CALCIUM 8.7 mg/dL (8.4-10.2); CREATININE, SERUM 1.59 mg/dL (0.72-1.25); MAGNESIUM 1.4 MG/DL (1.3-2.1); PHOSPHORUS 3.4 MG/DL (2.3-4.7)
[2017-08-18 05:52] LABS: EOSINOPHILS % (MANUAL) 1 % (0-7); LYMPHOCYTES % (MANUAL) 7 % (19-48); MONOCYTES % (MANUAL) 2 % (3.4-9.0); NEUTROPHILS % (MANUAL) 90 % (40-74)
[2017-08-18 05:53] LABS: ANISOCYTOSIS SLIGHT; PLATELET ESTIMATE ADEQUATE; PLATELET MORPHOLOGY COMMENT FEW LARGE; RBC MORPHOLOGY COMMENT NORMAL
[2017-08-18] MEDS: METOPROLOL TARTRATE INJ 1 MG/ML VIAL IV SCH ×3 (06:43→22:22)
[2017-08-18] MEDS: IPRATROPIUM BROMIDE 0.02% 2.5 ML NEB NEB SCH ×3 (06:45→23:05)
--- NOTE | 2017-08-18 06:53 | Diagnostic Imaging Report ---
EXAM: CT Abdomen and Pelvis WITHOUT contrast INDICATION: Persistent nausea and constipation COMPARISON: None. TECHNIQUE: Abdomen and pelvis were scanned utilizing a multidetector helical scanner from the lung base to the pubic symphysis without administration of IV contrast. Absence of intravenous contrast decreases sensitivity for detection of focal lesions and vascular pathology. Coronal and sagittal reformations were obtained. Routine protocol was performed. IV CONTRAST: None. ORAL CONTRAST: None RADIATION DOSE: Total DLP: 894.77 mGy*cm Estimated effective dose: (DLP x 0.015 x size factor) mSv COMPLICATIONS: None FINDINGS: LINES and TUBES: None. LOWER THORAX: There is bibasilar atelectasis. There is trace of right pleural effusion HEPATOBILIARY: No focal hepatic lesions. No biliary ductal dilation. GALLBLADDER: There are cholecystectomy clips. SPLEEN: No splenomegaly. PANCREAS: No focal masses or ductal dilatation. ADRENALS: No adrenal nodules KIDNEYS/URETERS: No hydronephrosis. 5.4 cm simple cyst in the inferior pole of the right kidney. Inferior pole of the left kidney simple cysts measuring 3.5 and 3.2 cm No stones. GI TRACT: No abnormal distention, wall thickening, or evidence of bowel obstruction. There are diverticula within the colon without evidence of diverticulitis. Appendix is normal. PELVIC ORGANS/BLADDER: Lechuga catheter decompresses the urinary bladder. LYMPH NODES: No lymphadenopathy. VESSELS: There is moderate atherosclerotic disease in the aorta and major arterial branches. There are aortobiiliac kissing stents. PERITONEUM / RETROPERITONEUM: No free air or fluid. BONES: There are degenerative changes in the lumbar spine. SOFT TISSUES: Multiple bilateral gluteal injection granulomas present. There are fat containing inguinal hernias. IMPRESSION: 1. No evidence for acute intra-abdominal or pelvic abnormality. 2. Extensive atherosclerotic disease of the distal abdominal aorta Signed by: Dr. Fredy Jarvis M.D. on 08/18/2017 6:50 AM
[2017-08-18] MEDS: COLLAGENASE OINTMENT 30 GM TUBE TP SCH (09:45)
[2017-08-18] MEDS: MUPIROCIN 2% OINT 22 GM TUBE TOP SCH (09:45)
[2017-08-18] MEDS: ALLOPURINOL 300 MG TAB PO SCH (09:45)
[2017-08-18] MEDS: ASPIRIN 81 MG CHEW TAB PO SCH (09:45)
[2017-08-18] MEDS: AMIODARONE HCL 200 MG TAB PO SCH (09:45)
[2017-08-18] MEDS: PANTOPRAZOLE 40 MG 10ML VIAL IV SCH ×2 (09:45→22:22)
[2017-08-18] MEDS: CITALOPRAM HYDROBROMIDE 20 MG TAB PO SCH (09:45)
[2017-08-18] MEDS: MEROPENEM 500 MG VIAL IV SCH (09:46)
[2017-08-18] MEDS ORDERED: SODIUM CHLORIDE 0.9% 250ML 250 ML ONE (10:18)
[2017-08-18] MEDS: DAPTOMYCIN 500 MG in SODIUM CHLORIDE 0.9% 100 ML IV SCH (10:40)
[2017-08-18] MEDS ORDERED: CHLORPROMAZINE HCL INJ 25 MG/ML AMP INJ SCH (11:45)
[2017-08-18] MEDS ORDERED: DEXTROSE 50% SYRINGE 50 ML IV PRN (16:30)
[2017-08-18] MEDS ORDERED: INSULIN REGULAR, HUMAN 100 UNIT/1 ML 3ML VIAL SQ SCH (16:30)
[2017-08-18] MEDS ORDERED: LORAZEPAM INJ 2 MG/ML VIAL IV PRN (16:30)
[2017-08-18] MEDS: INSULIN REGULAR, HUMAN 100 UNIT/1 ML 3ML VIAL SQ SCH (18:00)
[2017-08-18] MEDS ORDERED: CENTRAL TPN FORMULA 1 BAG IV SCH (20:00)
--- NOTE | 2017-08-18 20:40 | Consultation ---
DATE OF CONSULTATION: August 18, 2017 This is a 72-year-old gentleman who has history of lung cancer, status post lobectomy, history of PE, history of coronary artery disease, history of coronary artery bypass graft surgery and chronic renal disease, admitted to the hospital initially because of problems with right leg erythema and swelling along with cellulitis. Apparently, he developed some coffee ground emesis about a week ago and an NG tube is placed and the NG tube shows some coffee ground initially, but he continued to have significant output from the NG tube. He is currently comfortable. His workup so far showed that he is somewhat anemic with hemoglobin of 9.9, but he also had a CAT scan of the abdomen and pelvis that was done earlier which showed atherosclerotic disease, otherwise no abdominal distention, wall thickening or current bowel obstructions, no diverticulosis of the colon, otherwise is unremarkable. He has been given metoclopramide 10 mg IV q.6 h. and also has been given pantoprazole. His other medical problems are significant for history of lung cancer, as mentioned before, also history of coronary artery disease, previous PA and CABG, also history of renal disease. ALLERGIES: CODEINE. SOCIAL HISTORY: He is an ex-smoker, about 50 pack year. No alcohol use. FAMILY HISTORY: Noncontributory. REVIEW OF SYSTEMS: Denies any chest pain. Denies any shortness of breath. Denies any abdominal pain. He does have some nausea. Denies any bleeding. PHYSICAL EXAMINATION GENERAL: The patient is awake, alert, appears to be stable and not in any acute distress. VITAL SIGNS: Afebrile with stable vital signs. HEENT: Normocephalic, atraumatic. Sclerae anicteric. NG tube is in place with bilious aspirate. LUNGS: Clear. ABDOMEN: Soft. A little bit distended, bowel sounds present. Nontender. EXTREMITIES: No edema or clubbing. LABORATORY DATA: Significant for WBC of 7.0, hemoglobin 9.9 and hematocrit 30.8, BUN 38, creatinine 1.59. Liver enzymes appear to be normal. He is on heparin drip right now. CAT scan of the abdomen and pelvis were unremarkable. IMPRESSION 1. Persistent nausea and vomiting through the NG tube. The patient had some coffee ground emesis about a week or so ago. May need to rule out the possibility of ulcers with possible gastric outlet obstructions, even though CAT scan did not show any kind of obstructive pattern. 2. History of lung cancer. 3. History of coronary artery disease and previous bypass graft surgery. RECOMMENDATIONS: Continue on current medications. We will proceed with EGD for further evaluation tomorrow. I will hold heparin tomorrow at 6 a.m. Follow labs and clinically. Job#: [id number] cc:IGGY HERCULES MD
[2017-08-18] MEDS: BALSAM PERU/CASTOR OIL 60 GM OINT...G. TP SCH (22:19)
[2017-08-18] MEDS: ATORVASTATIN 20 MG TAB PO SCH (22:22)
[2017-08-18] MEDS: HYDRALAZINE HCL 20 MG/ML VIAL IV PRN (22:23)
[2017-08-19] VITALS (29 sets, daily range): BP systolic 107–184; BP diastolic 71–135
[2017-08-19] MEDS: METOCLOPRAMIDE HCL 10 MG/2ML VIAL IV SCH ×5 (02:50→23:34)
[2017-08-19] MEDS: METOPROLOL TARTRATE INJ 1 MG/ML VIAL IV SCH ×3 (05:21→21:36)
[2017-08-19] MEDS: INSULIN REGULAR, HUMAN 100 UNIT/1 ML 3ML VIAL SQ SCH ×5 (06:00→23:34)
[2017-08-19] MEDS: IPRATROPIUM BROMIDE 0.02% 2.5 ML NEB NEB SCH ×3 (07:08→22:35)
[2017-08-19 07:11] LABS: ALBUMIN/GLOBULIN RATIO 0.6 (0.8-2.0); ANION GAP 11.9 mmol/L (8-16); CREATININE, SERUM 1.44 mg/dL (0.72-1.25); MAGNESIUM 1.6 MG/DL (1.3-2.1); POTASSIUM 3.9 mmol/L (3.5-5.1)
[2017-08-19 07:28] LABS: BASOPHILS % 0.3 % (0.0-1.0); EOSINOPHILS % 0.1 % (0.0-6.0); HEMATOCRIT 31.2 % (38.2-49.6); HEMOGLOBIN 10.2 g/dL (14.0-18.0); LYMPHOCYTES # (AUTO) 0.6 (1.0-3.2); MEAN CORPUSCULAR HEMOGLOBIN 30.7 pg (28-32); MEAN CORPUSCULAR HGB CONC 32.7 g/dL (31-35); MONOCYTES # (AUTO) 0.3 (0.2-0.8); MONOCYTES % 3.5 % (4.4-11.3); NEUTROPHILS # (AUTO) 6.6 (2.1-6.9); NEUTROPHILS % 85.1 % (38.7-80.0); PLATELET COUNT 337 x10e3/uL (140-360); RED BLOOD COUNT 3.32 x10e6/uL (4.3-5.7)
[2017-08-19] MEDS: MUPIROCIN 2% OINT 22 GM TUBE TOP SCH (08:30)
[2017-08-19] MEDS: COLLAGENASE OINTMENT 30 GM TUBE TP SCH (08:30)
[2017-08-19] MEDS: BALSAM PERU/CASTOR OIL 60 GM OINT...G. TP SCH ×2 (08:30→17:20)
[2017-08-19] MEDS: ASPIRIN 81 MG CHEW TAB PO SCH (09:00)
[2017-08-19] MEDS: ALLOPURINOL 300 MG TAB PO SCH (09:00)
[2017-08-19] MEDS: CITALOPRAM HYDROBROMIDE 20 MG TAB PO SCH (09:00)
[2017-08-19] MEDS: AMIODARONE HCL 200 MG TAB PO SCH (09:00)
[2017-08-19] MEDS: PANTOPRAZOLE 40 MG 10ML VIAL IV SCH ×2 (11:00→20:13)
[2017-08-19] MEDS ORDERED: KETAMINE HCL INJ 50 MG/ML 10 ML VIAL ONE (14:02)
[2017-08-19] MEDS ORDERED: MIDAZOLAM HCL 2 MG/2 ML VIAL ONE (14:02)
[2017-08-19] MEDS ORDERED: ACETAMINOPHEN 1000 MG/100 ML IV PRN (14:30)
[2017-08-19] MEDS: SUCRALFATE 1 GM/10 ML SUSP NG SCH ×2 (17:22→23:34)
[2017-08-19] MEDS: HEPARIN 25,000 UNIT/D5W 250ML 250 ML IV SCH (17:42)
[2017-08-19] MEDS: CENTRAL TPN FORMULA 1 BAG IV SCH (20:04)
[2017-08-19] MEDS: ATORVASTATIN 20 MG TAB PO SCH (20:13)
[2017-08-20] VITALS (9 sets, daily range): BP systolic 130–167; BP diastolic 71–90
[2017-08-20] MEDS: ONDANSETRON HCL 4 MG ORAL DISINTEGRATING TAB PO PRN (03:17)
[2017-08-20] MEDS ORDERED: MAGNESIUM/ALUMINUM/SIMETHICONE 30 ML UDC ONE (03:30)
[2017-08-20] MEDS ORDERED: MAGNESIUM/ALUMINUM/SIMETHICONE 30 ML UDC PO PRN (03:30)
[2017-08-20] MEDS: METOCLOPRAMIDE HCL 10 MG/2ML VIAL IV SCH ×4 (06:05→23:29)
[2017-08-20] MEDS: SUCRALFATE 1 GM/10 ML SUSP NG SCH ×4 (06:05→23:29)
[2017-08-20] MEDS: METOPROLOL TARTRATE INJ 1 MG/ML VIAL IV SCH ×3 (06:05→23:29)
[2017-08-20] MEDS: INSULIN REGULAR, HUMAN 100 UNIT/1 ML 3ML VIAL SQ SCH ×4 (06:06→23:29)
[2017-08-20 06:39] LABS: ALBUMIN/GLOBULIN RATIO 0.7 (0.8-2.0); CALCIUM 8.9 mg/dL (8.4-10.2); CREATININE, SERUM 1.23 mg/dL (0.72-1.25); MAGNESIUM 1.4 MG/DL (1.3-2.1); PHOSPHORUS 2.6 MG/DL (2.3-4.7)
[2017-08-20 06:53] LABS: BASOPHILS % 0.3 % (0.0-1.0); EOSINOPHILS % 0.4 % (0.0-6.0); HEMATOCRIT 31.3 % (38.2-49.6); HEMOGLOBIN 10.3 g/dL (14.0-18.0); LYMPHOCYTES # (AUTO) 0.8 (1.0-3.2); LYMPHOCYTES % 9.8 % (18.0-39.1); MEAN CORPUSCULAR HEMOGLOBIN 30.7 pg (28-32); MEAN CORPUSCULAR HGB CONC 32.9 g/dL (31-35); MEAN CORPUSCULAR VOLUME 93.2 fL (81-99); MONOCYTES # (AUTO) 0.3 (0.2-0.8); MONOCYTES % 3.8 % (4.4-11.3); NEUTROPHILS # (AUTO) 6.6 (2.1-6.9); NEUTROPHILS % 82.7 % (38.7-80.0); PLATELET COUNT 396 x10e3/uL (140-360); RED BLOOD COUNT 3.36 x10e6/uL (4.3-5.7); RED CELL DISTRIBUTION WIDTH 15.9 % (11.7-14.4)
[2017-08-20] MEDS: IPRATROPIUM BROMIDE 0.02% 2.5 ML NEB NEB SCH ×3 (07:13→23:12)
[2017-08-20] MEDS: PROMETHAZINE 25MG/ NS 50ML (IV) IV PRN (08:45)
[2017-08-20] MEDS ORDERED: DAPTOMYCIN 500 MG in SODIUM CHLORIDE 0.9% 100 ML IV SCH (08:45)
[2017-08-20] MEDS ORDERED: MEROPENEM 500MG 500 MG in SODIUM CHLORIDE 0.9% 50ML 50 ML IV SCH (09:00)
[2017-08-20] MEDS: ALLOPURINOL 300 MG TAB PO SCH (10:14)
[2017-08-20] MEDS: CITALOPRAM HYDROBROMIDE 20 MG TAB PO SCH (10:14)
[2017-08-20] MEDS: MORPHINE SULFATE 2 MG/ML SYR IV PRN (10:14)
[2017-08-20] MEDS: AMIODARONE HCL 200 MG TAB PO SCH (10:14)
[2017-08-20] MEDS: MEROPENEM 500 MG VIAL IV SCH (10:14)
[2017-08-20] MEDS: PANTOPRAZOLE 40 MG 10ML VIAL IV SCH ×2 (10:14→20:56)
[2017-08-20] MEDS: ASPIRIN 81 MG CHEW TAB PO SCH (10:14)
[2017-08-20] MEDS: HEPARIN 25,000 UNIT/D5W 250ML 250 ML IV SCH (11:30)
[2017-08-20] MEDS: DAPTOMYCIN 500 MG in SODIUM CHLORIDE 0.9% 100 ML IV SCH (12:20)
[2017-08-20] MEDS: BALSAM PERU/CASTOR OIL 60 GM OINT...G. TP SCH ×2 (12:45→17:25)
[2017-08-20] MEDS: MUPIROCIN 2% OINT 22 GM TUBE TOP SCH (12:45)
[2017-08-20] MEDS: COLLAGENASE OINTMENT 30 GM TUBE TP SCH (12:45)
[2017-08-20] MEDS: CENTRAL TPN FORMULA 1 BAG IV SCH (19:30)
[2017-08-20] MEDS: ATORVASTATIN 20 MG TAB PO SCH (20:56)
[2017-08-20] MEDS: METHYLPREDNISOLONE SOD SUCC 40 MG/ML VIAL IV SCH (20:56)
[2017-08-21] VITALS (9 sets, daily range): BP systolic 132–161; BP diastolic 69–112
[2017-08-21] MEDS: MORPHINE SULFATE 2 MG/ML SYR IV PRN ×3 (04:21→20:19)
[2017-08-21] MEDS: INSULIN REGULAR, HUMAN 100 UNIT/1 ML 3ML VIAL SQ SCH ×4 (05:19→23:49)
[2017-08-21] MEDS: SUCRALFATE 1 GM/10 ML SUSP NG SCH ×4 (05:38→23:54)
[2017-08-21] MEDS: METOPROLOL TARTRATE INJ 1 MG/ML VIAL IV SCH ×4 (05:38→21:09)
[2017-08-21] MEDS: METOCLOPRAMIDE HCL 10 MG/2ML VIAL IV SCH ×4 (05:38→23:54)
[2017-08-21] MEDS: IPRATROPIUM BROMIDE 0.02% 2.5 ML NEB NEB SCH ×3 (06:45→22:50)
[2017-08-21] MEDS: ONDANSETRON HCL 4 MG ORAL DISINTEGRATING TAB PO PRN (08:19)
[2017-08-21] MEDS: PANTOPRAZOLE 40 MG 10ML VIAL IV SCH ×2 (08:19→21:09)
[2017-08-21] MEDS: CITALOPRAM HYDROBROMIDE 20 MG TAB PO SCH (09:31)
[2017-08-21] MEDS: MEROPENEM 500 MG VIAL IV SCH (09:31)
[2017-08-21] MEDS: ASPIRIN 81 MG CHEW TAB PO SCH (09:31)
[2017-08-21] MEDS: METHYLPREDNISOLONE SOD SUCC 40 MG/ML VIAL IV SCH ×2 (09:31→21:09)
[2017-08-21] MEDS: MUPIROCIN 2% OINT 22 GM TUBE TOP SCH (09:32)
[2017-08-21] MEDS: AMIODARONE HCL 200 MG TAB PO SCH (09:32)
[2017-08-21] MEDS: ALLOPURINOL 300 MG TAB PO SCH (09:32)
[2017-08-21] MEDS: BALSAM PERU/CASTOR OIL 60 GM OINT...G. TP SCH ×2 (09:32→16:41)
[2017-08-21] MEDS: COLLAGENASE OINTMENT 30 GM TUBE TP SCH (09:34)
[2017-08-21] MEDS: HEPARIN 25,000 UNIT/D5W 250ML 250 ML IV SCH (11:30)
--- NOTE | 2017-08-21 14:40 | Progress Note ---
DATE: He is doing better today. No new complaints. REVIEW OF SYSTEMS GENERAL: Otherwise unremarkable. HEENT: Anicteric. PULMONARY: Clear. CARDIAC: Negative. PHYSICAL EXAMINATION GENERAL: He is currently alert and oriented. Does not seem to be in acute distress. VITAL SIGNS: Stable and afebrile. HEENT: Anicteric. NECK: Supple. CHEST: Clear. Coarse sounds. ABDOMEN: Soft. Bowel sounds present. No tenderness. EXTREMITIES: The foot seems to be better. IMPRESSION 1. Sepsis on admission. 2. Infected foot. 3. Cellulitis, better. 4. Peripheral vascular disease. 5. Acute kidney injury on chronic kidney disease: Seems to be doing better. 6. Chronic obstructive pulmonary disease. 7. History of congestive heart failure: Seems to be stable. 8. Severe peripheral vascular disease. Continue with his antibiotics as ordered. Continue with local care and wound care of ulcers. He is currently on daptomycin. Cultures still negative. Job#: [id number] [place]
[2017-08-21] MEDS ORDERED: CENTRAL TPN FORMULA 1 BAG IV SCH (20:00)
[2017-08-21] MEDS: ATORVASTATIN 20 MG TAB PO SCH (21:09)
[2017-08-22] MEDS: MORPHINE SULFATE 2 MG/ML SYR IV PRN ×2 (03:03→08:16)
[2017-08-22 05:04] VITALS: BP 132/65
[2017-08-22] MEDS: INSULIN REGULAR, HUMAN 100 UNIT/1 ML 3ML VIAL SQ SCH ×4 (05:37→23:34)
[2017-08-22] MEDS: METOCLOPRAMIDE HCL 10 MG/2ML VIAL IV SCH ×4 (05:52→23:34)
[2017-08-22] MEDS: SUCRALFATE 1 GM/10 ML SUSP NG SCH ×4 (05:52→23:34)
[2017-08-22] MEDS: METOPROLOL TARTRATE INJ 1 MG/ML VIAL IV SCH ×3 (05:52→21:42)
[2017-08-22] MEDS: IPRATROPIUM BROMIDE 0.02% 2.5 ML NEB NEB SCH ×3 (06:54→22:47)
[2017-08-22] MEDS: BALSAM PERU/CASTOR OIL 60 GM OINT...G. TP SCH ×2 (09:22→17:44)
[2017-08-22] MEDS: AMIODARONE HCL 200 MG TAB PO SCH (09:27)
[2017-08-22] MEDS: ALLOPURINOL 300 MG TAB PO SCH (09:27)
[2017-08-22] MEDS: CITALOPRAM HYDROBROMIDE 20 MG TAB PO SCH (09:28)
[2017-08-22] MEDS: MUPIROCIN 2% OINT 22 GM TUBE TOP SCH (09:28)
[2017-08-22] MEDS: METHYLPREDNISOLONE SOD SUCC 40 MG/ML VIAL IV SCH ×2 (09:28→21:41)
[2017-08-22] MEDS: ASPIRIN 81 MG CHEW TAB PO SCH (09:28)
[2017-08-22] MEDS: MEROPENEM 500 MG VIAL IV SCH (09:28)
[2017-08-22] MEDS: COLLAGENASE OINTMENT 30 GM TUBE TP SCH (09:28)
[2017-08-22] MEDS: PANTOPRAZOLE 40 MG 10ML VIAL IV SCH ×2 (09:28→21:41)
[2017-08-22] MEDS: DAPTOMYCIN 500 MG in SODIUM CHLORIDE 0.9% 100 ML IV SCH (11:01)
[2017-08-22] MEDS ORDERED: HEPARIN 25,000 UNIT/D5W 250ML 250 ML IV SCH (13:30)
[2017-08-22 13:54] VITALS: BP 152/80
[2017-08-22] MEDS: ACETAMINOPHEN 325 MG TAB PO PRN ×2 (14:50→21:41)
[2017-08-22] MEDS: CENTRAL TPN FORMULA 1 BAG IV SCH (19:57)
[2017-08-22 20:10] VITALS: BP 138/72
[2017-08-22 20:14] VITALS: BP 138/72
[2017-08-22] MEDS: ATORVASTATIN 20 MG TAB PO SCH (21:41)
[2017-08-22 23:34] VITALS: BP 143/72
[2017-08-23] MEDS: INSULIN REGULAR, HUMAN 100 UNIT/1 ML 3ML VIAL SQ SCH ×4 (05:12→23:18)
[2017-08-23] MEDS: METOCLOPRAMIDE HCL 10 MG/2ML VIAL IV SCH ×4 (05:12→23:12)
[2017-08-23 05:13] VITALS: BP 118/60
[2017-08-23] MEDS: METOPROLOL TARTRATE INJ 1 MG/ML VIAL IV SCH ×3 (05:13→23:11)
[2017-08-23 06:09] LABS: BASOPHILS % 0.3 % (0.0-1.0); HEMATOCRIT 30.8 % (38.2-49.6); LYMPHOCYTES # (AUTO) 0.8 (1.0-3.2); MEAN CORPUSCULAR HEMOGLOBIN 30.4 pg (28-32); MEAN CORPUSCULAR HGB CONC 32.5 g/dL (31-35); MEAN CORPUSCULAR VOLUME 93.6 fL (81-99); MONOCYTES # (AUTO) 0.5 (0.2-0.8); MONOCYTES % 4.8 % (4.4-11.3); NEUTROPHILS # (AUTO) 9.3 (2.1-6.9); NEUTROPHILS % 82.2 % (38.7-80.0); PLATELET COUNT 529 x10e3/uL (140-360); RED BLOOD COUNT 3.29 x10e6/uL (4.3-5.7); RED CELL DISTRIBUTION WIDTH 15.1 % (11.7-14.4)
[2017-08-23] MEDS: ACETAMINOPHEN 325 MG TAB PO PRN ×2 (06:24→16:15)
[2017-08-23] MEDS: SUCRALFATE 1 GM/10 ML SUSP NG SCH ×4 (06:24→23:12)
[2017-08-23 06:39] LABS: ALBUMIN/GLOBULIN RATIO 0.8 (0.8-2.0); ANION GAP 9.6 mmol/L (8-16); CALCIUM 8.6 mg/dL (8.4-10.2); CREATININE, SERUM 1.21 mg/dL (0.72-1.25); POTASSIUM 4.6 mmol/L (3.5-5.1)
[2017-08-23] MEDS: IPRATROPIUM BROMIDE 0.02% 2.5 ML NEB NEB SCH ×3 (07:00→22:00)
[2017-08-23 07:11] VITALS: BP 149/81
[2017-08-23] MEDS: CITALOPRAM HYDROBROMIDE 20 MG TAB PO SCH (08:55)
[2017-08-23] MEDS: MEROPENEM 500 MG VIAL IV SCH (08:55)
[2017-08-23] MEDS: PANTOPRAZOLE 40 MG 10ML VIAL IV SCH ×2 (08:55→20:40)
[2017-08-23] MEDS: ASPIRIN 81 MG CHEW TAB PO SCH (08:55)
[2017-08-23] MEDS: ALLOPURINOL 300 MG TAB PO SCH (08:55)
[2017-08-23] MEDS: AMIODARONE HCL 200 MG TAB PO SCH (08:55)
[2017-08-23] MEDS: METHYLPREDNISOLONE SOD SUCC 40 MG/ML VIAL IV SCH (08:55)
[2017-08-23] MEDS: MUPIROCIN 2% OINT 22 GM TUBE TOP SCH (09:00)
[2017-08-23] MEDS: BALSAM PERU/CASTOR OIL 60 GM OINT...G. TP SCH ×2 (09:00→17:13)
[2017-08-23] MEDS: COLLAGENASE OINTMENT 30 GM TUBE TP SCH (09:00)
[2017-08-23 09:19] LABS: BAND NEUTROPHILS % (MANUAL) 2 %; LYMPHOCYTES % (MANUAL) 3 % (19-48); METAMYELOCYTES % (MANUAL) 1 % (0-0); MONOCYTES % (MANUAL) 3 % (3.4-9.0); MYELOCYTES % (MANUAL) 1 % (0-0); NEUTROPHILS % (MANUAL) 90 % (40-74)
[2017-08-23 09:22] LABS: ANISOCYTOSIS SLIGHT; PLATELET ESTIMATE SLIGHTLY INCREASED; PLATELET MORPHOLOGY COMMENT NORMAL; RBC MORPHOLOGY COMMENT NORMAL
[2017-08-23 11:52] VITALS: BP 160/78
[2017-08-23] MEDS: HEPARIN 25,000 UNIT/D5W 250ML 250 ML IV SCH (15:00)
[2017-08-23 16:00] VITALS: BP 153/79
[2017-08-23] MEDS: MORPHINE SULFATE 2 MG/ML SYR IV PRN ×2 (19:10→23:45)
[2017-08-23] MEDS ORDERED: FLUCONAZOLE 100 MG TAB PO ONE ×2 (19:45→20:30)
[2017-08-23 19:55] VITALS: BP 147/78
[2017-08-23 20:00] VITALS: BP 147/78
[2017-08-23] MEDS: CENTRAL TPN FORMULA 1 BAG IV SCH (20:40)
[2017-08-23] MEDS: ATORVASTATIN 20 MG TAB PO SCH (20:41)
[2017-08-23] MEDS ORDERED: METHYLPREDNISOLONE SOD SUCC 40 MG/ML VIAL IV SCH (21:00)
[2017-08-24] VITALS (9 sets, daily range): BP systolic 109–154; BP diastolic 60–95
[2017-08-24] MEDS: HEPARIN 25,000 UNIT/D5W 250ML 250 ML IV SCH ×2 (00:46→22:20)
[2017-08-24] MEDS: METOPROLOL TARTRATE INJ 1 MG/ML VIAL IV SCH ×3 (05:37→21:40)
[2017-08-24] MEDS: METOCLOPRAMIDE HCL 10 MG/2ML VIAL IV SCH ×4 (05:37→23:24)
[2017-08-24] MEDS: SUCRALFATE 1 GM/10 ML SUSP NG SCH ×4 (05:37→23:24)
[2017-08-24] MEDS: INSULIN REGULAR, HUMAN 100 UNIT/1 ML 3ML VIAL SQ SCH ×4 (05:37→23:25)
[2017-08-24] MEDS: MORPHINE SULFATE 2 MG/ML SYR IV PRN (06:38)
[2017-08-24 06:59] LABS: BASOPHILS # (AUTO) 0.1 (0.0-0.1); BASOPHILS % 0.5 % (0.0-1.0); EOSINOPHILS % 0.1 % (0.0-6.0); HEMATOCRIT 31.3 % (38.2-49.6); HEMOGLOBIN 10.4 g/dL (14.0-18.0); LYMPHOCYTES # (AUTO) 0.9 (1.0-3.2); LYMPHOCYTES % 7.2 % (18.0-39.1); MEAN CORPUSCULAR HEMOGLOBIN 30.6 pg (28-32); MEAN CORPUSCULAR HGB CONC 33.2 g/dL (31-35); MEAN CORPUSCULAR VOLUME 92.1 fL (81-99); MONOCYTES # (AUTO) 0.8 (0.2-0.8); NEUTROPHILS # (AUTO) 9.1 (2.1-6.9); NEUTROPHILS % 76.3 % (38.7-80.0); PLATELET COUNT 501 x10e3/uL (140-360); RED CELL DISTRIBUTION WIDTH 15.3 % (11.7-14.4)
[2017-08-24 07:15] LABS: ALBUMIN 2.1 g/dL (3.5-5.0); ALBUMIN/GLOBULIN RATIO 0.8 (0.8-2.0); ANION GAP 8.9 mmol/L (8-16); CALCIUM 8.8 mg/dL (8.4-10.2); CREATININE, SERUM 1.31 mg/dL (0.72-1.25); POTASSIUM 4.9 mmol/L (3.5-5.1)
[2017-08-24] MEDS: IPRATROPIUM BROMIDE 0.02% 2.5 ML NEB NEB SCH ×3 (08:10→19:50)
[2017-08-24] MEDS: MEROPENEM 500 MG VIAL IV SCH (08:36)
[2017-08-24] MEDS: ASPIRIN 81 MG CHEW TAB PO SCH (08:37)
[2017-08-24] MEDS: PANTOPRAZOLE 40 MG 10ML VIAL IV SCH ×2 (08:37→21:40)
[2017-08-24] MEDS: MUPIROCIN 2% OINT 22 GM TUBE TOP SCH (08:37)
[2017-08-24] MEDS: COLLAGENASE OINTMENT 30 GM TUBE TP SCH (08:37)
[2017-08-24] MEDS: CITALOPRAM HYDROBROMIDE 20 MG TAB PO SCH (08:37)
[2017-08-24] MEDS: BALSAM PERU/CASTOR OIL 60 GM OINT...G. TP SCH ×2 (08:37→16:00)
[2017-08-24] MEDS: ALLOPURINOL 300 MG TAB PO SCH (08:37)
[2017-08-24] MEDS: AMIODARONE HCL 200 MG TAB PO SCH (08:37)
[2017-08-24] MEDS ORDERED: FLUCONAZOLE 100 MG TAB PO SCH (09:00)
[2017-08-24] MEDS ORDERED: VALACYCLOVIR HCL 500 MG TAB PO SCH (09:00)
[2017-08-24 09:59] LABS: METAMYELOCYTES % (MANUAL) 1 % (0-0); MONOCYTES % (MANUAL) 5 % (3.4-9.0); MYELOCYTES % (MANUAL) 3 % (0-0); NEUTROPHILS % (MANUAL) 86 % (40-74); NUCLEATED RED BLOOD CELLS 1
[2017-08-24] MEDS: DAPTOMYCIN 500 MG in SODIUM CHLORIDE 0.9% 100 ML IV SCH (10:16)
[2017-08-24 10:27] LABS: HYPOCHROMASIA SLIGHT; RBC MORPHOLOGY COMMENT NORMAL
[2017-08-24 10:28] LABS: ANISOCYTOSIS SLIGHT; HOWELL-JOLLY BODIES FEW; PLATELET ESTIMATE SLIGHTLY INCREASED; PLATELET MORPHOLOGY COMMENT MANY LARGE
[2017-08-24] MEDS: ACETAMINOPHEN 325 MG TAB PO PRN (10:30)
[2017-08-24] MEDS ORDERED: SODIUM CHLORIDE 0.9% 250ML 250 ML ONE ×2 (11:12→21:18)
[2017-08-24] MEDS: FLUCONAZOLE 400MG/200ML BAG 200 ML IV SCH (11:29)
[2017-08-24] MEDS ORDERED: CENTRAL TPN FORMULA 1 BAG IV SCH (12:32)
[2017-08-24] MEDS: ACYCLOVIR SODIUM 750 MG in SODIUM CHLORIDE 0.9% 250ML 250 ML IV SCH ×2 (13:21→20:16)
[2017-08-24] MEDS: CLONIDINE HCL 0.2 MG/24 HR 1 EA PATCH TOP SCH (14:43)
[2017-08-24] MEDS: ATORVASTATIN 20 MG TAB PO SCH (21:40)
[2017-08-25 04:19] VITALS: BP 142/79
[2017-08-25] MEDS: ACYCLOVIR SODIUM 750 MG in SODIUM CHLORIDE 0.9% 250ML 250 ML IV SCH (04:49)
[2017-08-25] MEDS: METOCLOPRAMIDE HCL 10 MG/2ML VIAL IV SCH (05:36)
[2017-08-25] MEDS: SUCRALFATE 1 GM/10 ML SUSP NG SCH (05:36)
[2017-08-25] MEDS: METOPROLOL TARTRATE INJ 1 MG/ML VIAL IV SCH (05:37)
[2017-08-25] MEDS: INSULIN REGULAR, HUMAN 100 UNIT/1 ML 3ML VIAL SQ SCH (05:37)
[2017-08-25] MEDS ORDERED: MORPHINE SULFATE 2 MG/ML SYR IV PRN (06:00)
[2017-08-25] MEDS: IPRATROPIUM BROMIDE 0.02% 2.5 ML NEB NEB SCH (06:50)
[2017-08-25 08:00] VITALS: BP 135/72
[2017-08-25] MEDS: ASPIRIN 81 MG CHEW TAB PO SCH (08:33)
[2017-08-25] MEDS: CITALOPRAM HYDROBROMIDE 20 MG TAB PO SCH (08:33)
[2017-08-25] MEDS: COLLAGENASE OINTMENT 30 GM TUBE TP SCH (08:33)
[2017-08-25] MEDS: MEROPENEM 500 MG VIAL IV SCH (08:33)
[2017-08-25] MEDS: BALSAM PERU/CASTOR OIL 60 GM OINT...G. TP SCH (08:33)
[2017-08-25] MEDS: AMIODARONE HCL 200 MG TAB PO SCH (08:33)
[2017-08-25] MEDS: PANTOPRAZOLE 40 MG 10ML VIAL IV SCH (08:33)
[2017-08-25] MEDS: ALLOPURINOL 300 MG TAB PO SCH (08:33)
[2017-08-25] MEDS: FLUCONAZOLE 400MG/200ML BAG 200 ML IV SCH (11:24)
[2017-08-25 11:35] VITALS: BP 149/76
[2017-08-25] MEDS ORDERED: CENTRAL TPN FORMULA 1 BAG IV SCH (20:00)
== END 2017-08-25 12:08 | DRG 862 ==
LOC: IMCU 10:56 → OBSVTOIN 08-12 10:00 → ICU 08-12 13:07 → IMCU 08-20 19:45 → UNDODISIN 08-21 13:30 → ACU 08-23 12:00 → IMCU 08-23 12:01
PROVIDERS: ADMIT Internal Medicine; ATTEND Internal Medicine
PROC: 02HV33Z Insertion of Infusion Device into Superior Vena Cava, Percutaneous Approach (ICD-10-PCS; principal; 2017-08-12)
PROC: 02HV33Z Insertion of Infusion Device into Superior Vena Cava, Percutaneous Approach (ICD-10-PCS; 2017-08-13)
PROC: B5181ZA Fluoroscopy of Superior Vena Cava using Low Osmolar Contrast, Guidance (ICD-10-PCS; 2017-08-13)
PROC: 5A1D70Z Performance of Urinary Filtration, Intermittent, Less than 6 Hours Per Day (ICD-10-PCS; 2017-08-13)
PROC: 0DB38ZX Excision of Lower Esophagus, Via Natural or Artificial Opening Endoscopic, Diagnostic (ICD-10-PCS; 2017-08-19)
PROC: 0DB78ZX Excision of Stomach, Pylorus, Via Natural or Artificial Opening Endoscopic, Diagnostic (ICD-10-PCS; 2017-08-19)
DX: T81.4XXA Infection following a procedure, initial encounter (principal); A41.9 Sepsis, unspecified organism; N17.0 Acute kidney failure with tubular necrosis; R65.21 Severe sepsis with septic shock; L03.115 Cellulitis of right lower limb; L97.819 Non-pressure chronic ulcer of other part of right lower leg with unspecified severity; E87.2 Acidosis; I13.0 Hypertensive heart and chronic kidney disease with heart failure and stage 1 through stage 4 chronic kidney disease, or unspecified chronic kidney disease; I70.268 Atherosclerosis of native arteries of extremities with gangrene, other extremity; T81.31XA Disruption of external operation (surgical) wound, not elsewhere classified, initial encounter; I25.10 Atherosclerotic heart disease of native coronary artery without angina pectoris; Z95.1 Presence of aortocoronary bypass graft; F17.210 Nicotine dependence, cigarettes, uncomplicated; Z85.118 Personal history of other malignant neoplasm of bronchus and lung; J39.8 Other specified diseases of upper respiratory tract; Z90.2 Acquired absence of lung [part of]; I70.235 Atherosclerosis of native arteries of right leg with ulceration of other part of foot; L97.519 Non-pressure chronic ulcer of other part of right foot with unspecified severity; Z86.718 Personal history of other venous thrombosis and embolism; Z79.01 Long term (current) use of anticoagulants; J44.9 Chronic obstructive pulmonary disease, unspecified; Z95.820 Peripheral vascular angioplasty status with implants and grafts; I48.91 Unspecified atrial fibrillation; G20 Parkinson's disease; Z86.711 Personal history of pulmonary embolism; I12.9 Hypertensive chronic kidney disease with stage 1 through stage 4 chronic kidney disease, or unspecified chronic kidney disease; N18.3 Chronic kidney disease, stage 3 (moderate); K59.00 Constipation, unspecified; L98.499 Non-pressure chronic ulcer of skin of other sites with unspecified severity; K20.8 Other esophagitis; K44.9 Diaphragmatic hernia without obstruction or gangrene; K29.70 Gastritis, unspecified, without bleeding; G47.33 Obstructive sleep apnea (adult) (pediatric); E66.9 Obesity, unspecified; Z68.30 Body mass index [BMI] 30.0-30.9, adult; I50.9 Heart failure, unspecified; B37.9 Candidiasis, unspecified; L89.312 Pressure ulcer of right buttock, stage 2
CPT/HCPCS: 36415; 36556; 43239; 71045; 71250; 74018; 74176; 74470; 76770; 76937; 77001; 80053; 82140; 82150; 82948; 83690; 83735; 84100; 85025; 85610; 85730; 86022; 86704; 86706; 87040; 87071; 87205; 87340; 88305; 88312; 88342; 93005; 93306; 93926; 94640; 94660; 94667; 96360; 96361; 97139; 97606; C1751; G0378; J0360; J1450; J1644; J1940; J2001; J2060; J2185; J2250; J2270; J2543; J2550; J2765; J2920; J3230; J3370; J3430; J7030; J7050; J7070

== ENCOUNTER → 2017-10-13 | Outpatient (CLI) | payer MEDICARE, OTHER ==
[~2017-10-13] MED LIST changes: +SINEMET 25-1001 EACH PO
--- NOTE | 2017-10-14 14:03 | Diagnostic Imaging Report ---
History: Sciatica right side Comparison studies: X-ray of the abdomen 08/16/[address] abdomen 08/18/2017 Technique: Sagittal, coronal and axial T2 , sagittal T1 and IR, axial spin density oblique. Intravenous contrast: None Findings: Number of lumbar vertebral bodies:5. Transitional vertebra at the lower lumbar spine with lumbarization of S1. Alignment: Straightening of the normal lordosis. Grade 1 retrolisthesis of L5 over S1 likely degenerative.No scoliosis. Soft tissues: No T2 hyperintense inflammatory changes. Bilateral renal cysts the largest located at the interpolar regions measuring up to 5 mm right side. Paraspinal muscles: Infiltration of the paraspinal musculature secondary to severe atrophy. Lower thoracic cord:Normal in signal and morphology. The tip of the conus is at L1. Cauda equina: No masses. No arachnoiditis. Vertebrae: Depressed L1 and L5 superior endplate with less than 10% loss of central height, associated T1 hypointense line and and STIR hyperintensity. Degenerative changes: L1-L2: No abnormalities. L2-L3: Mild disc degeneration. Diffuse disc bulge with patent canal and foramina. L3-L4: Disc degeneration with loss of T2 signal. Mild diffuse bulge and mild bilateral facet hypertrophy results in no significant canal stenosis or foraminal narrowing. L4-L5: Disc degeneration with loss of T2 signal and decreased intervertebral space. Mildly depressed L5 superior endplate with edema signal. Diffuse disc bulge with superimposed left central and subarticular disc extrusion results in obliteration left subarticular recess, mild central canal stenosis and mild bilateral foraminal narrowing. Impingement of the descending left L5 nerve root. The left central disc extrusion is migrated inferiorly approximately 2 cm. Moderate bilateral facet hypertrophy with synovial fluid secondary to synovitis changes. L5-S1: Disc degeneration with loss of T2 signal. Grade 1 retrolisthesis. Diffuse disc bulge with superimposed central disc protrusion and mild facet hypertrophy results in mild canal stenosis, narrowing of the right more than left subarticular recesses, mild right and moderate left foraminal narrowing. Trace of fluid at the left synovial joint related to synovitis changes. Additional findings: The in the left iliac is muscle T2/STIR hyperintense oval lesion with surrounding blooming measuring approximately 4 cm in transverse diameter, most likely related to hematoma IMPRESSION: Acute/subacute superior endplates mildly depressed fractures at L1 and L5 without retropulsion or canal stenosis. Left central and subarticular inferiorly migrated disc extrusion at L4-L5 results in obliterated subarticular recess with impingement of the left L5 descending nerve root. Narrowing of the right subarticular recess at L5-S1 contacting the descending right S1 nerve root. Moderate left degenerative foraminal narrowing at L5-S1. Mild to moderate facet hypertrophy at the lower lumbar spine with synovitis changes at L4-L5 bilaterally and L5-S1 on the left Left iliacus muscle hematoma, most likely associated to muscle tear. Signed by: DR Yariel Rabago M.D. on 10/14/2017 2:00 PM
== END ==
LOC: MRI 17:10
PROVIDERS: ATTEND Internal Medicine
DX: M54.31 Sciatica, right side (principal)
CPT/HCPCS: 72148

== ENCOUNTER → 2018-06-20 | Outpatient (CLI) | payer MEDICARE, OTHER ==
--- NOTE | 2018-06-20 15:17 | Diagnostic Imaging Report ---
MRI SPINE CERVICAL WO, MRI SPINE THORACIC WO HISTORY: Fall COMPARISON: Lumbar spine MRI 10/13/2017 TECHNIQUE: Multiplanar, multisequence MRI examination of the cervical and thoracic spine was performed without contrast. Motion artifacts obscure some details. DISCUSSION: ACDF changes from C4 to C7 are present. Associated hardware susceptibility artifacts obscure some details. Alignment: Straightening of the cervical lordosis. No scoliosis. Vertebrae: Mild compression deformity of the T1 vertebral body is associated with mild edema along the inferior endplate. There is no significant fracture retropulsion. Mild T4 vertebral compression deformity is not associated with marrow edema. There is no significant fracture retropulsion. Mild compression deformity of the T9 vertebral body is also associated with mild edema along the superior endplate. There is no significant fracture retropulsion. Mild to moderate T12 vertebral compression fracture is associated with minimal edema along the superior endplate. There is no significant fracture retropulsion. No definite additional vertebral compression deformity is seen. Small nodular T1 hyperintense lesion in the T6 vertebral body is likely a benign hemangioma. Cervicomedullary junction: No abnormalities. Spinal cord: The ventral cord is mildly indented by posterior disc osteophyte complexes at C3-C4 and C4-C5. The visualized cord is otherwise normal in signal and morphology. Soft tissues: A few scattered small nodular subcutaneous lesions in the posterior neck may be inclusion cysts. Partially visualized T2 hyperintense lesion in the upper right kidney is likely a cyst. Additional findings: T2 hyperintense left mastoid effusion is partially visualized. Mild multilevel cervical disc degeneration is present. C2-C3: Mild canal stenosis due to posterior disc osteophyte complex and ligamentum flavum thickening. Mild to moderate left foraminal stenosis due to uncovertebral and facet arthrosis. No significant right foraminal stenosis. Facet arthrosis is prominent on the left. C3-C4: Mild to moderate canal stenosis due to posterior disc osteophyte complex and ligamentum flavum thickening. Moderate bilateral foraminal stenoses due to uncovertebral and facet arthrosis. Facet arthrosis is prominent, left greater than right. C4-C5: Mild canal stenosis due to posterior disc ossify complex and ligamentum flavum thickening. Mild bilateral foraminal stenoses due to uncovertebral and facet arthrosis. C5-C6: Mild left foraminal stenosis due to uncovertebral and facet arthrosis. No significant canal or right foraminal stenosis. C6-C7: Mild right and moderate left foraminal stenoses due to uncovertebral and facet arthrosis. No significant canal stenosis. C7-T1: Mild bilateral foraminal stenoses due to uncovertebral and facet arthrosis. No significant canal stenosis. Mild multilevel thoracic disc degeneration is also present without significant canal or foraminal stenosis. IMPRESSION: 1. Suspected mild T4 and T9 vertebral compression deformities may be subacute or acute. No significant fracture retropulsion. 2. Mild to moderate T12 vertebral compression fracture may be subacute or chronic. No significant fracture retropulsion. 3. Chronic mild T4 vertebral compression fracture without significant retropulsion. 4. Mild multilevel cervical disc degeneration. Multilevel degenerative cervical canal stenoses - mild to moderate at C3-C4. Mild to moderate multilevel bilateral degenerative foraminal stenoses in the cervical spine. 5. Mild multilevel thoracic disc degeneration without significant canal or foraminal stenosis. Signed by: Dr. Devan Robbins M.D. on 06/20/2018 3:13 PM
== END ==
LOC: MRI 12:51
PROVIDERS: ATTEND Neurological Surgery
DX: M50.120 Mid-cervical disc disorder, unspecified level (principal); M51.84 Other intervertebral disc disorders, thoracic region
CPT/HCPCS: 72141; 72146

== ENCOUNTER 2018-06-25 14:25 | Inpatient (IN) | payer MEDICARE, OTHER ==
[~2018-06-25] VITALS: Ht 193 cm; Wt 129.3 kg
--- OUTSIDE RECORDS SUMMARY | 2018-06-25 14:29 | XMS REPORT | CCD ---
Author Author Auto Generated Organization [facility] Address Unknown Phone Unavailable Care Team Providers Care Actuarial Manager Name Role Phone Hetal Panda CP Allergies, Adverse Reactions, Alerts Substance Reaction Status codeine Active Tape Active Problem List Condition Effective Dates Status Acid reflux Active COPD Active Enlarged prostate Active HT - Hypertension Active Kidney stone Active Medications Medication Instructions Start Date End Date Status Phenergan 12.5 mg, 0.5 mL, Route: IM, Drug 09/06/2011 09/07/2011 Discontinued form: INJ, Q2H, PRN as needed for nausea/vomiting, Start date: 09/06/11 21:12:00, Duration: 30 day, Stop date: 10/06/11 21:11:00 Demerol HCl 50 mg, 1 mL, Route: IV, Drug form: 09/06/2011 09/07/2011 Discontinued INJ, Q2H, PRN as needed for pain, Start date: 09/06/11 21:12:00, Duration: 4 day, Stop date: 09/10/11 21:11:00 gentamicin 120 mg, 3 mL, Route: IV, Drug form: 09/06/2011 09/06/2011 Completed INJ, ONCE, Priority: NOW, Start date: 09/06/11 21:12:00, Stop date: 09/06/11 21:12:00 Rocephin 1 g/ NS 1 gm, Route: IVPB, Drug form: 09/06/2011 09/06/2011 Discontinued (NaCl 0.9%) 50 mL IV PDR/INJ, [id number], Priority: STAT, solution Start date: 09/06/11 19:25:00, Duration: 30 day, Stop date: 10/06/11 18:25:00 gentamicin 156.8175 mg, 3.92 mL, Route: IVPB, 09/07/2011 09/07/2011 Discontinued Drug form: INJ, [id number], Start date: 09/07/11 6:00:00, Duration: 30 day, Stop date: 10/06/11 22:00:00, Patient's Own Meds: NS 1000 mL 1,000 mL 1,000 mL, Rate: 75 ml/hr, Infuse 09/06/2011 09/07/2011 Discontinued over: 13.3 hr, Route: IV, Dosing Weight 104.545 kg, Total Volume: 1,000, Start date: 09/06/11 21:12:00, Duration: 30 day, Stop date: 10/06/11 21:11:00 morphine Sulfate 4 mg, 2 mL, Route: IVP, Drug form: 09/06/2011 09/06/2011 Completed INJ, ONCE, Priority: STAT, Start date: 09/06/11 15:48:00, Stop date: 09/06/11 15:48:00 ondansetron 4 mg, 2 mL, Route: IVP, Drug form: 09/06/2011 09/06/2011 Completed INJ, ONCE, Priority: STAT, Start date: 09/06/11 15:48:00, Stop date: 09/06/11 15:48:00 Saline Flush 0.9% 5 ml, Route: IVP, Drug Form: INJ, 09/06/2011 09/07/2011 Discontinued PRN, PRN Line Flush, Start date: 09/06/11 15:48:00, Duration: 24 hr, Stop date: 09/07/11 15:47:00 Zofran 4 mg, 2 mL, Route: IVP, Drug form: 09/06/2011 09/07/2011 Discontinued INJ, Q8H, PRN as needed for nausea/vomiting, Priority: STAT, Start date: 09/06/11 21:12:00, Duration: 30 day, Stop date: 10/06/11 21:11:00 morphine Sulfate 4 mg, 2 mL, Route: IVP, Drug form: 09/06/2011 09/07/2011 Discontinued INJ, Q4H, PRN as needed for pain, Priority: STAT, Start date: 09/06/11 21:12:00, Duration: 30 day, Stop date: 10/06/11 21:11:00 Zofran 4 mg, 2 mL, Route: IVP, Drug form: 09/06/2011 09/07/2011 Discontinued INJ, Q4H, PRN Nausea, Start date: 09/06/11 20:21:00, Duration: 30 day, Stop date: 10/06/11 20:20:00 normal saline 0.9% 1,000 mL, Rate: 100 ml/hr, Infuse 09/06/2011 09/07/2011 Discontinued IV 1,000 mL over: 10 hr, Route: IV, Dosing Weight 104.545 kg, Total Volume: 1,000, Start date: 09/06/11 20:21:00, Duration: 30 day, Stop date: 10/06/11 20:20:00 morphine Sulfate 2 mg, 1 mL, Route: IVP, Drug form: 09/06/2011 09/07/2011 Discontinued INJ, Q3H, PRN Pain, Start date: 09/06/11 20:21:00, Duration: 30 day, Stop date: 10/06/11 20:20:00 Protonix 40 mg, 1 tab, Route: PO, Drug form: 09/06/2011 09/07/2011 Discontinued ECTAB, Before Dinner, Start date: 09/06/11 21:00:00, Duration: 30 day, Stop date: 10/06/11 16:30:00 ceftriaxone 1 gm, Route: IVPB, Drug form: 09/07/2011 09/07/2011 Canceled PDR/INJ, [id number], Start date: 09/07/11 21:00:00, Duration: 30 day, Stop date: 10/06/11 21:00:00 Zofran 4 mg, 2 mL, Route: IVP, Drug form: 09/06/2011 09/06/2011 Completed INJ, ONCE, Priority: STAT, Start date: 09/06/11 18:43:00, Stop date: 09/06/11 18:43:00 morphine Sulfate 4 mg, 2 mL, Route: IVP, Drug form: 09/06/2011 09/06/2011 Completed INJ, ONCE, Priority: STAT, Start date: 09/06/11 18:43:00, Stop date: 09/06/11 18:43:00 lidocaine 1% 0.5 mL, Route: INTRADERM, ONCALL, 09/07/2011 09/07/2011 Canceled Start date: 09/07/11 9:00:00, Duration: 1 doses or times Lactated Ringers 1,000 mL, Rate: 25 ml/hr, Infuse 09/07/2011 09/07/2011 Discontinued Injection IV 1000 mL over: 40 hr, Route: IV, Dosing Weight 104.545 kg, Total Volume: 1,000, Start date: 09/07/11 8:16:00, Duration: 30 day, Stop date: 10/07/11 8:15:00 Sodium Chloride 0.9% 1,000 mL, Rate: 1,000 ml/hr, Infuse 09/06/2011 09/06/2011 Completed (Bolus) IV 1000 mL over: 1 hr, Route: IV, Dosing Weight 104.545 kg, Total Volume: 1,000, Bolus Dose, Priority: STAT, Start date: 09/06/11 18:55:00, Duration: 1 doses or times, Stop date: 09/06/11 19:54:00 Vital Signs Most recent to oldest [Reference Range]: 1 2 3 Height 193.04 cm (09/06/2011 21:23:00) 193.04 cm (09/06/2011 13:28:00) Temperature Oral [96.4-99.1 DegF] 98.4 DegF (09/07/2011 12:00:00) 98.2 DegF (09/07/2011 08:00:00) 98.2 DegF (09/07/2011 04:01:00) Systolic Blood Pressure [90-140 mmHg] 175 mmHg *HI* (09/07/2011 12:00:00) 152 mmHg *HI* (09/07/2011 08:15:00) 137 mmHg (09/07/2011 08:00:00) Diastolic Blood Pressure [60-90 mmHg] 87 mmHg (09/07/2011 12:00:00) 81 mmHg (09/07/2011 08:15:00) 81 mmHg (09/07/2011 08:00:00) Respiratory Rate [14-20 BRMIN] 20 BRMIN (09/07/2011 12:00:00) 18 BRMIN (09/07/2011 08:00:00) 18 BRMIN (09/07/2011 04:01:00) Peripheral Pulse Rate [60-100 bpm] 118 bpm *HI* (09/07/2011 12:00:00) 84 bpm (09/07/2011 08:15:00) 82 bpm (09/07/2011 08:00:00) Weight 104.545 kg (09/06/2011 21:23:00) 104.545 kg (09/06/2011 13:28:00) Results URINALYSIS Most recent to oldest [Reference Range]: 1 2 UA Turbidity [Clear] Slight *ABN* (09/06/2011 05:30:00) UA Color Ltyellow *NA* (09/06/2011 05:30:00) UA pH [5.0-8.0] 5.0 (09/06/2011 05:30:00) UA Spec Grav [<=1.030] 1.006 (09/06/2011 05:30:00) UA Glucose [Negative mg/dL] Negative mg/dL *NA* (09/06/2011 05:30:00) UA Blood [Negative] Moderate *ABN* (09/06/2011 05:30:00) UA Ketones [Negative mg/dL] Negative mg/dL *NA* (09/06/2011 05:30:00) UA Protein [Negative mg/dL] Negative mg/dL (09/06/2011 05:30:00) UA Urobilinogen [0.1-1.0 mg/dL] <=1.0 mg/dL *NA* (09/06/2011 05:30:00) UA Bili [Negative] Negative *NA* (09/06/2011 05:30:00) UA Leuk Est [Negative] Large *ABN* (09/06/2011 05:30:00) UA Nitrite [Negative] Negative (09/06/2011 05:30:00) UA WBC [0-5 /HPF] 79 /HPF *HI* (09/06/2011 05:30:00) UA RBC [0-2 /HPF] 4 /HPF *HI* (09/06/2011 05:30:00) UA Bacteria [None Seen /HPF] Few /HPF *NA* (09/06/2011 05:30:00) UA Sq Epi None Seen *NA* (09/06/2011 05:30:00) CHEMISTRY Most recent to oldest [Reference Range]: 1 2 Sodium Lvl [135-145 mEq/L] 138 mEq/L (09/06/2011 15:45:00) Potassium Lvl [3.5-5.1 mEq/L] 4.2 mEq/L (09/06/2011 15:45:00) Chloride Lvl [95-109 mEq/L] 102 mEq/L (09/06/2011 15:45:00) CO2 [24-32 mEq/L] 25 mEq/L (09/06/2011 15:45:00) AGAP [10.0-20.0 mEq/L] 15.2 mEq/L (09/06/2011 15:45:00) Creatinine Lvl [0.5-1.4 mg/dL] 1.7 mg/dL *HI* (09/06/2011 15:45:00) BUN [7-22 mg/dL] 25 mg/dL *HI* (09/06/2011 15:45:00) B/C Ratio [6-25] 15 (09/06/2011 15:45:00) Glucose Lvl [70-99 mg/dL] 113 mg/dL 1 *HI* (09/06/2011 15:45:00) Total Protein [6.4-8.4 g/dL] 7.4 g/dL (09/06/2011 15:45:00) Albumin Lvl [3.5-5.0 g/dL] 3.8 g/dL (09/06/2011 15:45:00) Globulin [2.0-4.0 g/dL] 3.6 g/dL (09/06/2011 15:45:00) A/G Ratio [0.7-1.6] 1.1 (09/06/2011 15:45:00) Calcium Lvl [8.5-10.5 mg/dL] 9.6 mg/dL (09/06/2011 15:45:00) ALT [0-65 U/L] 30 U/L (09/06/2011 15:45:00) AST [0-37 U/L] 12 U/L (09/06/2011 15:45:00) Alk Phos [39-136 U/L] 67 U/L (09/06/2011 15:45:00) Bili Total [0.2-1.3 mg/dL] 0.5 mg/dL (09/06/2011 15:45:00) Lipase Lvl [73-393 U/L] 184 U/L (09/06/2011 15:45:00) 1Interpretive Data: Adult reference range values reflect the clinical guidelinesof the [place] [employer]. HEMATOLOGY Most recent to oldest [Reference Range]: 1 2 WBC [3.7-10.4 K/CMM] 10.1 K/CMM (09/07/2011 05:54:00) 14.4 K/CMM *HI* (09/06/2011 15:45:00) RBC [4.70-6.10 M/CMM] 4.67 M/CMM *LOW* (09/07/2011 05:54:00) 5.07 M/CMM (09/06/2011 15:45:00) Hgb [14.0-18.0 g/dL] 15.1 g/dL (09/07/2011 05:54:00) 16.5 g/dL (09/06/2011 15:45:00) Hct [42.0-54.0 %] 42.9 % (09/07/2011 05:54:00) 47.0 % (09/06/2011 15:45:00) MCV [80.0-94.0 fL] 91.9 fL (09/07/2011 05:54:00) 92.8 fL (09/06/2011 15:45:00) MCH [27.0-31.0 pg] 32.3 pg *HI* (09/07/2011 05:54:00) 32.6 pg *HI* (09/06/2011 15:45:00) MCHC [32.0-36.0 g/dL] 35.2 g/dL (09/07/2011 05:54:00) 35.1 g/dL (09/06/2011 15:45:00) RDW [11.5-14.5 %] 12.7 % (09/07/2011 05:54:00) 13.0 % (09/06/2011 15:45:00) Platelet [133-450 K/CMM] 240 K/CMM (09/07/2011 05:54:00) 260 K/CMM (09/06/2011 15:45:00) MPV [7.4-10.4 fL] 8.1 fL (09/07/2011 05:54:00) 7.7 fL (09/06/2011 15:45:00) Segs [45.0-75.0 %] 80.6 % *HI* (09/07/2011 05:54:00) 82.0 % *HI* (09/06/2011 15:45:00) Bands [0.0-11.0 %] 4.0 % (09/06/2011 15:45:00) Lymphocytes [20.0-40.0 %] 9.5 % *LOW* (09/07/2011 05:54:00) 9.0 % *LOW* (09/06/2011 15:45:00) Monocytes [2.0-12.0 %] 9.2 % (09/07/2011 05:54:00) 5.0 % (09/06/2011 15:45:00) Eosinophils [0.0-4.0 %] 0.4 % (09/07/2011 05:54:00) 0.0 % (09/06/2011 15:45:00) Basophils [0.0-1.0 %] 0.3 % (09/07/2011 05:54:00) 0.0 % (09/06/2011 15:45:00) Segs-Bands # [1.5-8.1 K/CMM] 7.9 K/CMM (09/07/2011 05:54:00) 12.7 K/CMM *HI* (09/06/2011 15:45:00) Lymphocytes # [1.0-5.5 K/CMM] 0.9 K/CMM *LOW* (09/07/2011 05:54:00) 1.2 K/CMM (09/06/2011 15:45:00) Monocytes # [0.0-0.8 K/CMM] 0.9 K/CMM *HI* (09/07/2011 05:54:00) 0.5 K/CMM (09/06/2011 15:45:00) Eosinophils # [0.0-0.5 K/CMM] 0.0 K/CMM (09/07/2011 05:54:00) 0.0 K/CMM (09/06/2011 15:45:00) Basophils # [0.0-0.2 K/CMM] 0.0 K/CMM (09/07/2011 05:54:00) 0.0 K/CMM (09/06/2011 15:45:00) RBC Morph Normal (09/07/2011 05:54:00) Plt Morph Normal (09/07/2011 05:54:00)
--- OUTSIDE RECORDS SUMMARY | 2018-06-25 14:29 | XMS REPORT | Clinical Summary ---
Author Author [employer] Organization [employer] [employer] Address Unknown Phone Unavailable Care Team Providers Care [employer] Manager Name Role Phone Dave Hong MD PCP Allergies Comments Active Allergy Reactions Severity Noted Date Blisters / OK with cloth tape Adhesive Tape-Silicones Low 06/16/2017 Nausea /vomiting Codeine Rash Low 06/16/2017 Medications End Date Status Medication Sig Dispensed Refills Start Date Active allopurinol (ZYLOPRIM) Take 300 mg 0 300 MG tablet by mouth nightly. Active aspirin (ECOTRIN) 81 MG Take 81 mg by 0 enteric coated tablet mouth daily. Active atorvastatin (LIPITOR) 20 Take 20 mg by 0 MG tablet mouth nightly. Default OP ins Active citalopram (CeleXA) 20 MG Take 20 mg by 0 tablet mouth daily. Active furosemide (LASIX) 40 mg Take 40 mg by 0 tablet mouth 2 (two) times a day. Active nitroglycerin (NITROSTAT) Place 0.4 mg 0 0.4 MG SL tablet under the tongue every 5 (five) minutes as needed for chest pain. Active albuterol (PROAIR Inhale 2 0 HFA,PROVENTIL puffs every 6 HFA,VENTOLIN HFA) 90 (six) hours mcg/actuation inhaler as needed for wheezing. Active omeprazole (PriLOSEC) 20 Take 20 mg by 0 MG capsule mouth daily. Active potassium citrate Take by mouth 0 (UROCIT-K) 10 mEq (1,080 every mg) CR tablet evening. Active pregabalin (LYRICA) 50 MG Take 50 mg by 0 capsule mouth every evening. Active amIODarone (PACERONE) 200 Take 200 mg 0 MG tablet by mouth daily. Active LACTOBACILLUS ACIDOPHILUS Take by 0 (PROBIOTIC ORAL) mouth. Active doxycycline (VIBRAMYCIN) Take 100 mg 0 100 MG capsule by mouth daily. Active ciprofloxacin (CIPRO) 500 Take 500 mg 0 MG tablet by mouth daily. 06/27/2018 Active atenolol (TENORMIN) 25 MG Take 1 tablet 30 tablet 11 tablet (25 mg total) 8 by mouth nightly. 06/27/2018 Active ferrous sulfate 325 (65 Take 1 tablet 60 tablet 11 FE) MG tablet (325 mg 8 total) by mouth 2 (two) times a day with meals. 06/27/2017 Discontinued atenolol (TENORMIN) 50 MG Take 50 mg by 0 tablet mouth nightly. 06/27/2017 Discontinued clopidogrel (PLAVIX) 75 Take 75 mg by 0 mg tablet mouth daily. 06/27/2017 Discontinued WARFARIN SODIUM (WARFARIN Take by 0 ORAL) mouth. 8 mg=Tues , Sat 5 mg=Mon, Thur, Fri , 06/27/2017 Discontinued fluconazole (DIFLUCAN) Take by mouth 0 100 MG tablet daily. 06/27/2017 Discontinued azilsartan Take by 0 med-chlorthalidone mouth. (EDARBYCLOR) 40-25 mg tablet 07/27/2017 warfarin (COUMADIN) 1 MG Take 7 210 tablet 0 tablet tablets (7 mg 8 total) by mouth daily for 30 days. 07/11/2017 traMADol (ULTRAM) 50 mg Take 1 tablet 40 tablet 0 tablet (50 mg total) 8 by mouth every 6 (six) hours as needed for moderate pain or severe pain for up to 14 days. 06/30/2017 enoxaparin (LOVENOX) 100 Inject 1 mL 6 mL 0 mg/mL syringe (100 mg 8 total) under the skin 2 (two) times a day for 3 days. Active Problems Problem Noted Date PAD (peripheral artery disease) 06/21/2017 Encounters Care Team Description Date Type Specialty Baltazar Hoff MD S/P femoral-popliteal bypass surgery (Primary Dx); PAD (peripheral artery disease) 06/21/2017 Hospital Cardiology - Encounter 06/27/2017 after 06/24/2017 Social History Date Tobacco Use Types Packs/Day Years Used Quit: 1999 Former Smoker 1 50 Smokeless Tobacco: Former Quit: 2011 User Comments: smokeless tobacco 2cans/day , used x 24 years , quit 2011 Alcohol Use Drinks/Week oz/Week Comments No Sex Assigned at Date Recorded Not on file Industry Job Start Date Occupation Not on file Not on file Not on file Travel End Travel History Travel Start No recent travel history available. Last Filed Vital Signs Time Taken Vital Sign Reading 06/27/2017 7:14 AM CDT Blood Pressure 137/65 06/27/2017 7:14 AM CDT Pulse 76 06/27/2017 7:14 AM CDT Temperature 36.9 C (98.5 F) 06/27/2017 7:14 AM CDT Respiratory Rate 20 06/27/2017 7:14 AM CDT Oxygen Saturation 98% - Inhaled Oxygen - Concentration 06/27/2017 4:30 AM CDT Weight 111 kg (243 lb 14.4 oz) - Height - 06/27/2017 4:30 AM CDT Body Mass Index 29.69 Plan of Treatment Health Maintenance Due Date Last Done Comments COLON CANCER SCREENING 1994 SHINGLES VACCINES (#1) 1994 65+ PNEUMOCOCCAL VACCINE 2009 (1 of 2 - PCV13) PNEUMOCOCCAL 2009 POLYSACCHARIDE VACCINE AGE 65 AND OVER INFLUENZA VACCINE 10/13/2018 Procedures Comments Procedure Name Priority Date/Time Associated Diagnosis TRANSFUSE RED BLOOD CELLS Routine 11/17/2017 5:52 PM CDT TRANSFUSE RED BLOOD CELLS Routine 11/17/2017 5:52 PM CDT HC COMPLETE BLD COUNT Routine 06/27/2017 W/AUTO DIFF 9:49 AM CDT ZZESTIMATED GFR Routine 06/27/2017 8:07 AM CDT BASIC METABOLIC PANEL Routine 06/27/2017 8:07 AM CDT PROTHROMBIN TIME WITH INR Routine 06/27/2017 5:00 AM CDT ZZESTIMATED GFR Routine 06/26/2017 5:06 AM CDT BASIC METABOLIC PANEL Routine 06/26/2017 5:06 AM CDT CBC HEMOGRAM Routine 06/26/2017 5:00 AM CDT PROTHROMBIN TIME WITH INR Routine 06/26/2017 5:00 AM CDT POC GLUCOSE Routine 06/25/2017 12:13 PM CDT POC GLUCOSE Routine 06/25/2017 7:32 AM CDT CBC HEMOGRAM Routine 06/25/2017 4:10 AM CDT ZZESTIMATED GFR Routine 06/25/2017 4:00 AM CDT TOTAL IRON BINDING Routine 06/25/2017 CAPACITY 4:00 AM CDT FERRITIN LEVEL Routine 06/25/2017 4:00 AM CDT MAGNESIUM LEVEL Routine 06/25/2017 4:00 AM CDT PROTHROMBIN TIME WITH INR Routine 06/25/2017 4:00 AM CDT BASIC METABOLIC PANEL Routine 06/25/2017 4:00 AM CDT POC GLUCOSE Routine 06/24/2017 4:05 PM CDT POC GLUCOSE Routine 06/24/2017 12:01 PM CDT ECG 12-LEAD Routine 06/24/2017 10:44 AM CDT SMEAR REVIEW Routine 06/24/2017 7:57 AM CDT HC COMPLETE BLD COUNT Routine 06/24/2017 W/AUTO DIFF 7:57 AM CDT POC GLUCOSE Routine 06/24/2017 7:34 AM CDT PROTHROMBIN TIME WITH INR Routine 06/24/2017 5:25 AM CDT CBC HEMOGRAM Routine 06/24/2017 5:25 AM CDT ZZESTIMATED GFR Routine 06/24/2017 4:00 AM CDT BASIC METABOLIC PANEL Routine 06/24/2017 4:00 AM CDT after 06/24/2017 Results * Transfuse RBC (11/17/2017 5:52 PM CDT) Only the most recent of 2 results within the time period is included. * CBC with platelet and differential (06/27/2017 9:49 AM CDT) Only the most recent of 2 results within the time period is included. WBC 8.07 4.50 - 11.00 k/uL [facility] OF PATHOLOGY AND GENOMIC MEDICINE RBC 3.14 (L) 4.40 - 6.00 m/uL [facility]OLOGY AND GENOMIC MEDICINE HGB 9.0 (L) 14.0 - 18.0 g/dL [facility] OF PATHOLOGY AND GENOMIC MEDICINE HCT 28.0 (L) 41.0 - 51.0 % [facility] OF PATHOLOGY AND GENOMIC MEDICINE MCV 89.2 82.0 - 100.0 fL [facility] OF PATHOLOGY AND GENOMIC MEDICINE MCH 28.7 27.0 - 34.0 pg [facility] OF PATHOLOGY AND GENOMIC MEDICINE MCHC 32.1 31.0 - 37.0 g/dL [facility] OF PATHOLOGY AND GENOMIC MEDICINE RDW - SD 55.1 (H) 37.0 - 55.0 fL [facility] OF PATHOLOGY AND GENOMIC MEDICINE MPV 10.7 8.8 - 13.2 fL [facility] OF PATHOLOGY AND GENOMIC MEDICINE Platelet count 217 150 - 400 k/uL [facility] OF PATHOLOGY AND GENOMIC MEDICINE Nucleated RBC 0.40 /100 WBC [facility]OLOGY AND GENOMIC MEDICINE Neutrophils 70.6 (H) 39.0 - 69.0 % [facility] OF [facility]OLOGY AND GENOMIC MEDICINE Lymphocytes 16.4 (L) 25.0 - 45.0 % [facility] OF PATHOLOGY AND GENOMIC MEDICINE Monocytes 8.6 0.0 - 10.0 % [facility]OLOGY AND GENOMIC MEDICINE Eosinophils 0.1 0.0 - 5.0 % [facility] OF PATHOLOGY AND GENOMIC MEDICINE Basophils 0.1 0.0 - 1.0 % [facility] OF PATHOLOGY AND GENOMIC MEDICINE Immature granulocytes 4.2 (H)Comment: "Immature 0.0 - 1.0 % [facility] DEPARTMENT OF granulocytes" (promyelocytes, PATHOLOGY AND myelocytes, metamyelocytes) GENOMIC MEDICINE Specimen Blood Performing Organization Address City/State/Zipcode Phone Number [facility] DEPARTMENT OF [address] [place] [id number] PATHOLOGY AND GENOMIC MEDICINE * Estimated GFR (06/27/2017 8:07 AM CDT) Only the most recent of 4 results within the time period is included. GFR Non Af Amer 37 (A) mL/min/1.73 m2 [facility] OF PATHOLOGY AND GENOMIC MEDICINE GFR Af Amer 45 (A) mL/min/1.73 m2 [facility] OF Comment: PATHOLOGY AND Chronic kidney disease: <60 GENOMIC MEDICINE mL/min/1.73m2 Kidney failure: <15 mL/min/1.73m2 The estimated GFR is calculated from the IDMS-traceable Modification of Diet in Renal Disease Equation. The accuracy of the calculation is poor when the creatinine is normal. Calculated values >90 mL/min/1.73m2 are not reported. This equation has not been validated in children (<18 years), women, the elderly (>70 years), or ethnic groups other than Caucasians and Americans. Specimen Plasma specimen Performing Organization Address City/[facility] [place] [address] PATHOLOGY AND [facility] * Basic metabolic panel (06/27/2017 8:07 AM CDT) Only the most recent of 4 results within the time period is included. Sodium 136 135 - 148 mEq/L [facility] OF PATHOLOGY AND GENOMIC MEDICINE Potassium 4.5 3.5 - 5.0 mEq/L [facility] OF PATHOLOGY AND GENOMIC MEDICINE Chloride 95 (L) 98 - 112 mEq/L [facility] OF PATHOLOGY AND GENOMIC MEDICINE CO2 29 24 - 31 mEq/L [facility] OF PATHOLOGY AND GENOMIC MEDICINE Anion gap 12 7 - 15 mEq/L [facility] OF Comment: PATHOLOGY AND Starting from June [facility] , anion gap calculation no longer incorporates potassium. Please note the change. BUN 44 (H) 8 - 23 mg/dL [facility] OF PATHOLOGY AND GENOMIC MEDICINE Creatinine 1.8 (H) 0.7 - 1.2 mg/dL [facility] OF PATHOLOGY AND GENOMIC MEDICINE Glucose 93 65 - 99 mg/dL [facility] OF PATHOLOGY AND GENOMIC MEDICINE Calcium 9.2 8.8 - 10.2 mg/dL [facility] OF PATHOLOGY AND GENOMIC MEDICINE Specimen Plasma specimen Performing Organization Address City/[facility] Phone Number [place] [phone] PATHOLOGY AND [facility] MEDICINE * Prothrombin time with INR (06/27/2017 5:00 AM CDT) Only the most recent of 4 results within the time period is included. Prothrombin time 18.4 (H) 12.0 - 15.0 sec [facility] OF PATHOLOGY AND GENOMIC MEDICINE INR 1.5 [facility] DE[facility] OF Comment: PATHOLOGY AND The International Normalized GENOMIC MEDICINE Ratio (INR) is a therapeutic monitoring tool for patients who are stable on oral anticoagulant therapy. An INR of 2.0-3.0 is suggested for deep vein thrombosis/pulmonary embolism. Specimen Blood Performing Organization Address City/[facility] [place] [address] PATHOLOGY AND [facility] MEDICINE * CBC hemogram (06/26/2017 5:00 AM CDT) Only the most recent of 3 results within the time period is included. WBC 6.93 4.50 - 11.00 k/uL [facility] OF PATHOLOGY AND GENOMIC MEDICINE RBC 2.85 (L) 4.40 - 6.00 m/uL [facility] OF PATHOLOGY AND GENOMIC MEDICINE HGB 8.1 (L) 14.0 - 18.0 g/dL [facility] OF PATHOLOGY AND GENOMIC MEDICINE HCT 25.5 (L) 41.0 - 51.0 % [facility] OF PATHOLOGY AND GENOMIC MEDICINE MCV 89.5 82.0 - 100.0 fL [facility] OF PATHOLOGY AND GENOMIC MEDICINE MCH 28.4 27.0 - 34.0 pg [facility] OF PATHOLOGY AND GENOMIC MEDICINE MCHC 31.8 31.0 - 37.0 g/dL [facility] OF PATHOLOGY AND GENOMIC MEDICINE RDW - SD 56.8 (H) 37.0 - 55.0 fL [facility] OF PATHOLOGY AND GENOMIC MEDICINE MPV 11.0 8.8 - 13.2 fL [facility] OF PATHOLOGY AND GENOMIC MEDICINE Platelet count 182 150 - 400 k/uL [facility] OF PATHOLOGY AND GENOMIC MEDICINE Nucleated RBC 0.40 /100 WBC [facility] OF PATHOLOGY AND GENOMIC MEDICINE Specimen Blood Performing Organization Address City/[facility] Phone Number [address] [address] PATHOLOGY AND [facility] MEDICINE * POC glucose (06/25/2017 12:13 PM CDT) Only the most recent of 5 results within the time period is included. POC glucose 99 65 - 99 mg/dL [facility] DE[facility] OF Comment: PATHOLOGY AND [facility] Notified RN GENOMIC MEDICINE Meter ID: [id number] Communications Department Chair: Kleber Whitney Performing Organization Address [facility] [place] [address] PATHOLOGY AND GENOMIC MEDICINE * Total iron binding capacity (06/25/2017 4:00 AM CDT) Iron level 23 (L) 59 - 158 ug/dL [facility] OF PATHOLOGY AND GENOMIC MEDICINE Iron binding capacity 270 200 - 400 ug/dL [facility] OF PATHOLOGY AND GENOMIC MEDICINE % Saturation 8.5 (L) 20.0 - 40.0 % [facility] OF PATHOLOGY AND GENOMIC MEDICINE Specimen Plasma specimen Performing Organization Address [facility] [place] [address] PATHOLOGY AND GENOMIC MEDICINE * Magnesium level (06/25/2017 4:00 AM CDT) Magnesium 1.6 1.6 - 2.4 mg/dL [facility] OF PATHOLOGY AND GENOMIC MEDICINE Specimen Plasma specimen Performing Organization Address [facility] [place] [address] PATHOLOGY AND GENOMIC MEDICINE * Ferritin level (06/25/2017 4:00 AM CDT) Ferritin level 91 30 - 400 ng/mL [facility] OF PATHOLOGY AND GENOMIC MEDICINE Specimen Plasma specimen Performing Organization Address [facility] [place] [address] PATHOLOGY AND GENOMIC MEDICINE * ECG 12 lead (06/24/2017 10:44 AM CDT) Ventricular rate 93 [facility]USE Atrial rate 93 [facility] MUSE [place] interval 138 [facility] MUSE QRSD interval 136 [facility] QT interval 374 [facility] QTC interval 465 [facility] MUSE P axis 1 67 [facility] QRS axis 1 48 [facility] T wave axis 25 [facility] EKG impression Normal sinus rhythm-Right [facility] MUSE bundle branch block-Abnormal ECG-In automated comparison with ECG of 23-JUN-2017 09:37,-No significant change was found- Performing Organization Address City/[facility] Phone Number [address] [place] [phone] * Smear review (06/24/2017 7:57 AM CDT) Platelet slide review Tony adequate [facility] DEPARTMENT OF PATHOLOGY AND GENOMIC MEDICINE Anisocytosis Moderate [facility] DEPART[facility] OF PATHOLOGY AND GENOMIC MEDICINE Polychromasia Moderate [facility] OF PATHOLOGY AND GENOMIC MEDICINE Ovalocytes Moderate [facility] DE[facility] OF PATHOLOGY AND GENOMIC MEDICINE Performing Organization Address City/State/Zipcode Phone Number [facility] DEPARTMENT [address] [address] PATHOLOGY AND GENOMIC MEDICINE after 06/24/2017 Insurance Payer Benefit Subscriber ID Type Phone Address Plan / Group MEDICARE MEDICARE xxxxxxxxxx Medicare [place], [place] PART A AND B [employer] [place] Advance Directives Patient has advance care planning documents on file. For more information, liz mendoza contact: Varinder Jerome [address] [place] [address]
--- OUTSIDE RECORDS SUMMARY | 2018-06-25 14:29 | XMS REPORT | Continuity of Care Document ---
Author Author [facility] Interface Address Unknown Phone Unavailable Problems Problem Status Onset Date Classification Date Reported Comments Source UNK Active 10/20/2011 [facility] FLANK PAIN Active 09/06/2011 [facility] KIDNEY STONE Active 09/06/2011 [facility] L RENAL STONE Active 08/25/2011 [facility] Acid reflux Active Problem 09/09/2011 [facility] COPD Active Problem 09/09/2011 [facility] Enlarged prostate Active Problem 09/09/2011 [facility] HT - Hypertension Active Problem 09/09/2011 [facility] Kidney stone Active Problem 09/09/2011 [facility] CALCULUS OF KIDNEY Active [facility] Medications Medication Details Route Status Patient Instructions Ordering Provider Order Date Source ceftriaxone 1 gm, Route: IVPB, Drug form: PDR/INJ, [id number], Start date: 09/07/11 21:00:00, Duration: 30 day, Stop date: 10/06/11 21:00:00 IVPB No Longer Active Farzad 09/08/2011 [facility] lidocaine 1% 0.5 mL, Route: INTRADERM, ONCALL, Start date: 09/07/11 9:00:00, Duration: 1 doses or times INTRADERM No Longer Active Juan Antonio 09/07/2011 [facility] Lactated Ringers Injection IV 1000 mL 1,000 mL, Rate: 25 ml/hr, Infuse over: 40 hr, Route: IV, Dosing Weight 104.545 kg, Total Volume: 1,000, Start date: 09/07/11 8:16:00, Duration: 30 day, Stop date: 10/07/11 8:15:00 IV No Longer Active Juan Antonio 09/07/2011 [facility] gentamicin 156.8175 mg, 3.92 mL, Route: IVPB, Drug form: INJ, [id number], Start date: 09/07/11 6:00:00, Duration: 30 day, Stop date: 10/06/11 22:00:00, Patient's Own Meds: IVPB No Longer Active Nriagu 09/07/2011 [facility] Phenergan 12.5 mg, 0.5 mL, Route: IM, Drug form: INJ, Q2H, PRN as needed for nausea/vomiting, Start date: 09/06/11 21:12:00, Duration: 30 day, Stop date: 10/06/11 21:11:00 IM No Longer Active [facility] 09/07/2011 [facility] Demerol HCl 50 mg, 1 mL, Route: IV, Drug form: INJ, Q2H, PRN as needed for pain, Start date: 09/06/11 21:12:00, Duration: 4 day, Stop date: 09/10/11 21:11:00 IV No Longer Active [facility] 09/07/2011 [facility] gentamicin 120 mg, 3 mL, Route: IV, Drug form: INJ, ONCE, Priority: NOW, Start date: 09/06/11 21:12:00, Stop date: 09/06/11 21:12:00 IV No Longer Active [facility] 09/07/2011 [facility] NS 1000 mL 1,000 mL 1,000 mL, Rate: 75 ml/hr, Infuse over: 13.3 hr, Route: IV, Dosing Weight 104.545 kg, Total Volume: 1,000, Start date: 09/06/11 21:12:00, Duration: 30 day, Stop date: 10/06/11 21:11:00 IV No Longer Active [facility] 09/07/2011 [facility] Zofran 4 mg, 2 mL, Route: IVP, Drug form: INJ, Q8H, PRN as needed for nausea/vomiting, Priority: STAT, Start date: 09/06/11 21:12:00, Duration: 30 day, Stop date: 10/06/11 21:11:00 IVP No Longer Active [facility] 09/07/2011 [facility] morphine Sulfate 4 mg, 2 mL, Route: IVP, Drug form: INJ, Q4H, PRN as needed for pain, Priority: STAT, Start date: 09/06/11 21:12:00, Duration: 30 day, Stop date: 10/06/11 21:11:00 IVP No Longer Active [facility] 09/07/2011 [facility] Protonix 40 mg, 1 tab, Route: PO, Drug form: ECTAB, Before Dinner, Start date: 09/06/11 21:00:00, Duration: 30 day, Stop date: 10/06/11 16:30:00 PO No Longer Active [facility] 09/07/2011 [facility] Zofran 4 mg, 2 mL, Route: IVP, Drug form: INJ, Q4H, PRN Nausea, Start date: 09/06/11 20:21:00, Duration: 30 day, Stop date: 10/06/11 20:20:00 IVP No Longer Active [facility] 09/07/2011 [facility] normal saline 0.9% IV 1,000 mL 1,000 mL, Rate: 100 ml/hr, Infuse over: 10 hr, Route: IV, Dosing Weight 104.545 kg, Total Volume: 1,000, Start date: 09/06/11 20:21:00, Duration: 30 day, Stop date: 10/06/11 20:20:00 IV No Longer Active [facility] 09/07/2011 [facility] morphine Sulfate 2 mg, 1 mL, Route: IVP, Drug form: INJ, Q3H, PRN Pain, Start date: 09/06/11 20:21:00, Duration: 30 day, Stop date: 10/06/11 20:20:00 IVP No Longer Active [facility] 09/07/2011 [facility] Rocephin 1 g/ NS (NaCl 0.9%) 50 mL IV solution 1 gm, Route: IVPB, Drug form: PDR/INJ, [id number], Priority: STAT, Start date: 09/06/11 19:25:00, Duration: 30 day, Stop date: 10/06/11 18:25:00 IVPB No Longer Active Marcus 09/07/2011 [facility] Sodium Chloride 0.9% (Bolus) IV 1000 mL 1,000 mL, Rate: 1,000 ml/hr, Infuse over: 1 hr, Route: IV, Dosing Weight 104.545 kg, Total Volume: 1,000, Bolus Dose, Priority: STAT, Start date: 09/06/11 18:55:00, Duration: 1 doses or times, Stop date: 09/06/11 19:54:00 IV No Longer Active Nriagu 09/06/2011 [facility] Zofran 4 mg, 2 mL, Route: IVP, Drug form: INJ, ONCE, Priority: STAT, Start date: 09/06/11 18:43:00, Stop date: 09/06/11 18:43:00 IVP No Longer Active Roca 09/06/2011 [facility] morphine Sulfate 4 mg, 2 mL, Route: IVP, Drug form: INJ, ONCE, Priority: STAT, Start date: 09/06/11 18:43:00, Stop date: 09/06/11 18:43:00 IVP No Longer Active Roca 09/06/2011 [facility] morphine Sulfate 4 mg, 2 mL, Route: IVP, Drug form: INJ, ONCE, Priority: STAT, Start date: 09/06/11 15:48:00, Stop date: 09/06/11 15:48:00 IVP No Longer Active Nriagu 09/06/2011 [facility] ondansetron 4 mg, 2 mL, Route: IVP, Drug form: INJ, ONCE, Priority: STAT, Start date: 09/06/11 15:48:00, Stop date: 09/06/11 15:48:00 IVP No Longer Active Nriagu 09/06/2011 [facility] Saline Flush 0.9% 5 ml, Route: IVP, Drug Form: INJ, PRN, PRN Line Flush, Start date: 09/06/11 15:48:00, Duration: 24 hr, Stop date: 09/07/11 15:47:00 IVP No Longer Active Nriagu 09/06/2011 [facility] Allergies, Adverse Reactions, Alerts Substance Category Reaction Severity Reaction type Status Date Reported Comments Source codeine drug allergy Allergy Active [facility] Tape drug allergy Allergy Active [facility] Immunizations Immunization Date Given Site Status Last Updated Comments Source Results Order Name Results Value Reference Range Date Interpretation Comments Source HEMATOLOGY Plt Morph Normal (09/07/2011 05:54:00) 09/07/2011 Normal [facility] HEMATOLOGY RBC Morph Normal (09/07/2011 05:54:00) 09/07/2011 Normal [facility] HEMATOLOGY Basophils # 0.0 K/CMM 0.0 - 0.2 09/07/2011 Normal [facility] HEMATOLOGY Segs-Bands # 7.9 K/CMM 1.5 - 8.1 09/07/2011 Normal [facility] HEMATOLOGY Monocytes # 0.9 K/CMM 0.0 - 0.8 09/07/2011 HI [facility] HEMATOLOGY Lymphocytes # 0.9 K/CMM 1.0 - 5.5 09/07/2011 LOW [facility] HEMATOLOGY Eosinophils # 0.0 K/CMM 0.0 - 0.5 09/07/2011 Normal [facility] HEMATOLOGY Lymphocytes 9.5 % 20.0 - 40.0 09/07/2011 LOW [facility] HEMATOLOGY Segs 80.6 % 45.0 - 75.0 09/07/2011 [facility] HEMATOLOGY Monocytes 9.2 % 2.0 - 12.0 09/07/2011 Normal [facility] HEMATOLOGY Basophils 0.3 % 0.0 - 1.0 09/07/2011 Normal [facility] HEMATOLOGY Eosinophils 0.4 % 0.0 - 4.0 09/07/2011 Normal [facility] HEMATOLOGY Platelet 240 K/CMM 133 - 450 09/07/2011 Normal [facility] HEMATOLOGY MPV 8.1 fL 7.4 - 10.4 09/07/2011 Normal [facility] HEMATOLOGY MCV 91.9 fL 80.0 - 94.0 09/07/2011 Normal [facility] HEMATOLOGY MCH 32.3 pg 27.0 - 31.0 09/07/2011 HI [facility] HEMATOLOGY MCHC 35.2 g/dL 32.0 - 36.0 09/07/2011 Normal [facility] HEMATOLOGY RDW 12.7 % 11.5 - 14.5 09/07/2011 Normal [facility] HEMATOLOGY Hgb 15.1 g/dL 14.0 - 18.0 09/07/2011 Normal [facility] HEMATOLOGY Hct 42.9 % 42.0 - 54.0 09/07/2011 Normal [facility] HEMATOLOGY WBC 10.1 K/CMM 3.7 - 10.4 09/07/2011 Normal [facility] HEMATOLOGY RBC 4.67 M/CMM 4.70 - 6.10 09/07/2011 LOW [facility] CHEMISTRY AGAP 15.2 meq/L 10.0 - 20.0 09/06/2011 Normal [facility] CHEMISTRY B/C Ratio 15 6 - 25 09/06/2011 Normal [facility] CHEMISTRY A/G Ratio 1.1 0.7 - 1.6 09/06/2011 Normal [facility] CHEMISTRY Globulin 3.6 g/dL 2.0 - 4.0 09/06/2011 Normal [facility] CHEMISTRY Calcium Lvl 9.6 mg/dL 8.5 - 10.5 09/06/2011 Normal [facility] CHEMISTRY Albumin Lvl 3.8 g/dL 3.5 - 5.0 09/06/2011 Normal [facility] CHEMISTRY Chloride Lvl 102 meq/L 95 - 109 09/06/2011 Normal [facility] CHEMISTRY CO2 25 meq/L 24 - 32 09/06/2011 Normal [facility] CHEMISTRY Glucose Lvl 113 mg/dL 70 - 99 09/06/2011 [facility] 1Interpretive Data: Adult reference range values reflect the clinical guidelinesof the [place] [employer]. [facility] CHEMISTRY BUN 25 mg/dL 7 - 22 09/06/2011 [facility] CHEMISTRY Creatinine Lvl 1.7 mg/dL 0.5 - 1.4 09/06/2011 [facility] CHEMISTRY Sodium Lvl 138 meq/L 135 - 145 09/06/2011 Normal [facility] CHEMISTRY Potassium Lvl 4.2 meq/L 3.5 - 5.1 09/06/2011 Normal [facility] CHEMISTRY ALT 30 U/L 0 - 65 09/06/2011 Normal [facility] CHEMISTRY Bili Total 0.5 mg/dL 0.2 - 1.3 09/06/2011 Normal [facility] CHEMISTRY Alk Phos 67 U/L 39 - 136 09/06/2011 Normal [facility] CHEMISTRY AST 12 U/L 0 - 37 09/06/2011 Normal [facility] CHEMISTRY Total Protein 7.4 g/dL 6.4 - 8.4 09/06/2011 Normal [facility] CHEMISTRY Lipase Lvl 184 U/L 73 - 393 09/06/2011 Normal [facility] HEMATOLOGY Bands 4.0 % 0.0 - 11.0 09/06/2011 Normal [facility] HEMATOLOGY Segs 82.0 % 45.0 - 75.0 09/06/2011 [facility] HEMATOLOGY Monocytes 5.0 % 2.0 - 12.0 09/06/2011 Normal [facility] HEMATOLOGY Lymphocytes 9.0 % 20.0 - 40.0 09/06/2011 LOW [facility] HEMATOLOGY Segs-Bands # 12.7 K/CMM 1.5 - 8.1 09/06/2011 [facility] HEMATOLOGY Monocytes # 0.5 K/CMM 0.0 - 0.8 09/06/2011 Normal [facility] HEMATOLOGY Basophils 0.0 % 0.0 - 1.0 09/06/2011 Normal [facility] HEMATOLOGY Eosinophils 0.0 % 0.0 - 4.0 09/06/2011 Normal [facility] HEMATOLOGY Lymphocytes # 1.2 K/CMM 1.0 - 5.5 09/06/2011 Normal [facility] HEMATOLOGY Eosinophils # 0.0 K/CMM 0.0 - 0.5 09/06/2011 Normal [facility] HEMATOLOGY Basophils # 0.0 K/CMM 0.0 - 0.2 09/06/2011 Normal [facility] HEMATOLOGY RDW 13.0 % 11.5 - 14.5 09/06/2011 Normal [facility] HEMATOLOGY Platelet 260 K/CMM 133 - 450 09/06/2011 Normal [facility] HEMATOLOGY MPV 7.7 fL 7.4 - 10.4 09/06/2011 Normal [facility] HEMATOLOGY MCHC 35.1 g/dL 32.0 - 36.0 09/06/2011 Normal [facility] HEMATOLOGY Hct 47.0 % 42.0 - 54.0 09/06/[address] [facility] MCV 92.8 fL 80.0 - 94.0 09/06/[address] [facility] MCH 32.6 pg 27.0 - 31.0 09/06/2011 HI [facility] HEMATOLOGY Hgb 16.5 g/dL 14.0 - 18.0 09/06/[address] [facility] RBC 5.07 M/CMM 4.70 - 6.10 09/06/2011 Normal [facility] HEMATOLOGY WBC 14.4 K/CMM 3.7 - 10.4 09/06/2011 [facility] URINALYSIS UA WBC 79 /HPF 0 - 5 09/06/2011 [facility] URINALYSIS UA RBC 4 /HPF 0 - 2 09/06/2011 [facility] URINALYSIS UA Bacteria Few /HPF *NA* (09/06/2011 05:30:00) None Seen 09/06/2011 [facility] URINALYSIS UA Leuk Est Large *ABN* (09/06/2011 05:30:00) Negative 09/06/2011 ABN [facility] URINALYSIS UA Color Ltyellow 09/06/2011 [facility] URINALYSIS UA Urobilinogen <=1.0 mg/dL
*NA*
(09/06/2011 05:30:00) <sup> </sup> 0.1 - 1.0 09/06/2011 [facility] URINALYSIS UA Sq Epi None Seen 09/06/2011 [facility] URINALYSIS UA Bili Negative *NA* (09/06/2011 05:30:00) Negative 09/06/2011 [facility] URINALYSIS UA Blood Moderate *ABN* (09/06/2011 05:30:00) Negative 09/06/2011 ABN [facility] URINALYSIS UA Nitrite Negative (09/06/2011 05:30:00) Negative 09/06/2011 Normal [facility] URINALYSIS UA Glucose Negative mg/dL *NA* (09/06/2011 05:30:00) Negative 09/06/2011 NA [facility] URINALYSIS UA Ketones Negative mg/dL *NA* (09/06/2011 05:30:00) Negative 09/06/2011 NA [facility] URINALYSIS UA Spec Grav 1.006 <=1.030 09/06/2011 Normal [facility] URINALYSIS UA pH 5.0 5.0 - 8.0 09/06/2011 Normal [facility] URINALYSIS UA Protein Negative mg/dL (09/06/2011 05:30:00) Negative 09/06/2011 Normal [facility] URINALYSIS UA Turbidity Slight *ABN* (09/06/2011 05:30:00) Clear 09/06/2011 ABN [facility] Vital Signs Vital Sign Value Date Comments Source Temperature Oral (F) 98.4 F 09/07/2011 [facility] Heart Rate 118 09/07/2011 [facility] Respitory Rate 20 09/07/2011 [facility] Diastolic (mm Hg) 87 09/07/2011 [facility] Systolic (mm Hg) 175 09/07/2011 [facility] Heart Rate 84 09/07/2011 [facility] Diastolic (mm Hg) 81 09/07/2011 [facility] Systolic (mm Hg) 152 09/07/2011 [facility] Diastolic (mm Hg) 81 09/07/2011 [facility] Respitory Rate 18 09/07/2011 [facility] Systolic (mm Hg) 137 09/07/2011 [facility] Temperature Oral (F) 98.2 F 09/07/2011 [facility] Heart Rate 82 09/07/2011 [facility] Temperature Oral (F) 98.2 F 09/07/2011 [facility] Respitory Rate 18 09/07/2011 [facility] Weight 104.545 09/07/2011 [facility] Height 193.04 cm 09/07/2011 [facility] Weight 104.545 09/06/2011 [facility] Height 193.04 cm 09/06/2011 [facility] Encounters Location Location Details Encounter Type Encounter Number Reason For Visit Attending Provider ADM Date DC Date Status Source [facility] [id number] MALINDA ARAGON 08/31/2011 08/31/2011 Active [facility] [id number] YUDITH WOODS 09/06/2011 09/07/2011 Active [facility] [id number] LUCY ARAGON Active [facility] Procedures Procedure Code Date Perfomer Comments Source
[2018-06-25 15:28] LABS: BASOPHILS % 0.4 % (0.0-1.0); EOSINOPHILS # (AUTO) 0.1 (0.0-0.4); EOSINOPHILS % 1.8 % (0.0-6.0); HEMATOCRIT 30.5 % (38.2-49.6); HEMOGLOBIN 8.3 g/dL (14.0-18.0); LYMPHOCYTES # (AUTO) 1.4 (1.0-3.2); LYMPHOCYTES % 20.2 % (18.0-39.1); MEAN CORPUSCULAR HEMOGLOBIN 22.4 pg (28-32); MEAN CORPUSCULAR HGB CONC 27.2 g/dL (31-35); MEAN CORPUSCULAR VOLUME 82.2 fL (81-99); MONOCYTES # (AUTO) 0.6 (0.2-0.8); MONOCYTES % 8.6 % (4.4-11.3); NEUTROPHILS # (AUTO) 4.6 (2.1-6.9); NEUTROPHILS % 68.1 % (38.7-80.0); PLATELET COUNT 442 x10e3/uL (140-360); RED BLOOD COUNT 3.71 x10e6/uL (4.3-5.7); RED CELL DISTRIBUTION WIDTH 26.5 % (11.7-14.4)
[2018-06-25 15:41] LABS: INR 2.03; PROTHROMBIN TIME 23.6 seconds (11.9-14.5)
[2018-06-25 15:48] LABS: ALBUMIN 2.4 g/dL (3.5-5.0); ALBUMIN/GLOBULIN RATIO 0.8 (0.8-2.0); ANION GAP 11.4 mmol/L (8-16); CALCIUM 8.7 mg/dL (8.4-10.2); CREATININE, SERUM 1.6 mg/dL (0.72-1.25); POTASSIUM 4.4 mmol/L (3.5-5.1)
[2018-06-25 15:57] LABS: BILIRUBIN,URINE NEGATIVE (NEGATIVE); CLARITY,URINE CLEAR (CLEAR); COLOR,URINE YELLOW (YELLOW); KETONES,URINE NEGATIVE (NEGATIVE); LEUKOCYTE ESTERASE ,URINE NEGATIVE (NEGATIVE); NITRITE,URINE NEGATIVE (NEGATIVE); PROTEIN,URINE DIPSTICK NEGATIVE (NEGATIVE); URINE UROBILINOGEN 0.2 mg/dL (0.2 - 1)
[2018-06-25 16:08] LABS: THYROID STIMULATING HORMONE 4.321 uIU/mL (0.350-4.940)
[2018-06-25 16:20] LABS: TRANSITIONAL EPI CELLS,URINE MODERATE
[2018-06-25 16:22] LABS: EPITHELIAL CELLS,URINE FEW /LPF
--- NOTE | 2018-06-25 16:33 | Diagnostic Imaging Report ---
Examination: CT BRAIN WO CONTRAST History:Fall; head injury; confusion. Comparison studies:None Technique: Axial images were obtained from the skull base to the vertex. Coronal and sagittal images reconstructed from the axial data. Dose modulation, iterative reconstruction, and/or weight based adjustment of the mA/kV was utilized to reduce the radiation dose to as low as reasonably achievable. Intravenous contrast: None Findings: Scalp: No abnormalities. Bones: No fractures, blastic or lytic lesions. Brain sulci: Moderate volume loss for age. Ventricles: No hydrocephalus. Extra-axial space: No abnormalities. Parenchyma: There are subtle patchy areas of hypoattenuation in the periventricular and subcortical white matter, nonspecific . No masses, hemorrhage, or acute or chronic cortical based vascular insults.. Sellar/suprasellar region: No abnormalities. Craniocervical junction: Patent foramen magnum. No Chiari one malformation. Incidental findings: Atherosclerotic calcification of the cavernous and supraclinoid internal carotid and V4 segments of the bilateral vertebral arteries. Impression: No acute intracranial abnormalities. Moderate volume loss. Mild chronic microvascular ischemic change. Signed by: Dr. Vanessa Burroughs M.D. on 06/25/2018 4:30 PM
--- NOTE | 2018-06-25 16:36 | Diagnostic Imaging Report ---
EXAMINATION: CHEST SINGLE (PORTABLE) INDICATION: Status post fall. Query pneumonia. COMPARISON: Report from chest radiograph dated 04/18/2016, although the images were not available for review at the time of this dictation. FINDINGS: TUBES and LINES: None. LUNGS: Low lung volumes. There are patchy opacities at the bilateral lung bases, left greater than right. PLEURA: No pleural effusion or pneumothorax. HEART AND MEDIASTINUM: The cardiomediastinal silhouette is unremarkable. BONES AND SOFT TISSUES: No acute osseous abnormality. Partially seen cervical spine fixation hardware. UPPER ABDOMEN: No free air under the diaphragm. IMPRESSION: Low lung volumes with patchy opacities at lung bases, left greater than right, which may reflect pneumonia in the appropriate clinical setting. Suggest follow-up chest radiograph in 6-8 weeks to assess for resolution. Signed by: Dr. Tej Olson MD on 06/25/2018 4:33 PM
[2018-06-25] MEDS ORDERED: AZITHROMYCIN 500MG/SOD CHL 0.9% 250ML BAG IV SCH (18:15)
[2018-06-25] MEDS: SODIUM CHLORIDE 0.9% 1000ML 1,000 ML IV SCH (18:25)
[2018-06-25] MEDS: AZITHROMYCIN 500MG/NS 250 ML 250 ML IV SCH (18:25)
--- OUTSIDE RECORDS SUMMARY | 2018-06-25 18:38 | XMS REPORT | Clinical Summary ---
Author Author Varinder Mandaen Organization Reeder Mandaen Address Unknown Phone Unavailable Care Team Providers Care Bale Stacker Name Role Phone Dave Hong MD PCP [...] included. WBC 8.07 4.50 - 11.00 k/uL [facility] DEPARTMENT OF PATHOLOGY AND GENOMIC MEDICINE RBC 3.14 (L) 4.40 - 6.00 m/uL [facility] DEPARTMENT OF PATHOLOGY AND GENOMIC MEDICINE HGB 9.0 (L) 14.0 - 18.0 g/dL [facility] DEPARTMENT OF PATHOLOGY AND GENOMIC MEDICINE HCT 28.0 (L) 41.0 - 51.0 % [facility] DEPARTMENT OF PATHOLOGY AND GENOMIC MEDICINE MCV 89.2 82.0 - 100.0 fL [facility] DEPARTMENT OF PATHOLOGY AND GENOMIC MEDICINE MCH 28.7 27.0 - 34.0 pg [facility] DEPARTMENT OF PATHOLOGY AND GENOMIC MEDICINE MCHC 32.1 31.0 - 37.0 g/dL [facility] DEPARTMENT OF PATHOLOGY AND GENOMIC MEDICINE RDW - SD 55.1 (H) 37.0 - 55.0 fL [facility] DEPARTMENT OF PATHOLOGY AND GENOMIC MEDICINE MPV 10.7 8.8 - 13.2 fL [facility] DEPARTMENT OF PATHOLOGY AND GENOMIC MEDICINE Platelet count 217 150 - 400 k/uL [facility] DEPARTMENT OF PATHOLOGY AND GENOMIC MEDICINE Nucleated RBC 0.40 /100 WBC [facility] DEPARTMENT OF PATHOLOGY AND GENOMIC MEDICINE Neutrophils 70.6 (H) 39.0 - 69.0 % [facility] DEPARTMENT OF PATHOLOGY AND GENOMIC MEDICINE Lymphocytes 16.4 (L) 25.0 - 45.0 % [facility] DEPARTMENT OF PATHOLOGY AND GENOMIC MEDICINE Monocytes 8.6 0.0 - 10.0 % [facility] DEPARTMENT OF PATHOLOGY AND GENOMIC MEDICINE Eosinophils 0.1 0.0 - 5.0 % [facility] DEPARTMENT OF PATHOLOGY AND GENOMIC MEDICINE Basophils 0.1 0.0 - 1.0 % [facility] DEPARTMENT OF PATHOLOGY AND GENOMIC MEDICINE Immature granulocytes 4.2 (H)Comment: "Immature 0.0 - 1.0 % [facility] DEPARTMENT OF granulocytes" (promyelocytes, PATHOLOGY AND myelocytes, metamyelocytes) GENOMIC MEDICINE Specimen Blood Performing Organization Address City/State/Zipcode Phone Number [facility] DEPARTMENT OF [address] [place] [id number] PATHOLOGY AND GENOMIC MEDICINE * Estimated GFR (06/27/2017 8:07 AM CDT) Only the most recent of 4 results within the time period is included. GFR Non Af Amer 37 (A) mL/min/1.73 m2 [facility] DEPARTMENT OF PATHOLOGY AND GENOMIC MEDICINE GFR Af Amer 45 (A) mL/min/1.73 m2 [facility] DEPARTMENT OF Comment: PATHOLOGY AND Chronic kidney [...] Americans. Specimen Plasma specimen Performing Organization Address City/[facility] [place] [address] PATHOLOGY AND [facility] * Basic metabolic panel (06/27/2017 8:07 AM CDT) Only the most recent of 4 results within the time period is included. Sodium 136 135 - 148 mEq/L [facility] DEPARTMENT OF PATHOLOGY AND GENOMIC MEDICINE Potassium 4.5 3.5 - 5.0 mEq/L [facility] DEPARTMENT OF PATHOLOGY AND GENOMIC MEDICINE Chloride 95 (L) 98 - 112 mEq/L [facility] DEPARTMENT OF PATHOLOGY AND GENOMIC MEDICINE CO2 29 24 - 31 mEq/L [facility] DEPARTMENT OF PATHOLOGY AND GENOMIC MEDICINE Anion gap 12 7 - 15 mEq/L [facility] DEPARTMENT OF Comment: PATHOLOGY AND Starting from June [facility] , anion gap calculation no longer incorporates potassium. Please note the change. BUN 44 (H) 8 - 23 mg/dL [facility] DEPARTMENT OF PATHOLOGY AND GENOMIC MEDICINE Creatinine 1.8 (H) 0.7 - 1.2 mg/dL [facility] DEPARTMENT OF PATHOLOGY AND GENOMIC MEDICINE Glucose 93 65 - 99 mg/dL [facility] DEPARTMENT OF PATHOLOGY AND GENOMIC MEDICINE Calcium 9.2 8.8 - 10.2 mg/dL [facility] DEPARTMENT OF PATHOLOGY AND GENOMIC MEDICINE Specimen Plasma specimen Performing Organization Address City/[facility] Phone Number [place] [phone] PATHOLOGY AND [facility] * Prothrombin time with INR (06/27/2017 5:00 AM CDT) Only the most recent of 4 results within the time period is included. Prothrombin time 18.4 (H) 12.0 - 15.0 sec [facility] DEPARTMENT OF PATHOLOGY AND GENOMIC MEDICINE INR 1.5 [facility] DEPARTMENT OF Comment: PATHOLOGY AND The International Normalized GENOMIC MEDICINE Ratio (INR) is a therapeutic monitoring tool for patients who are stable on oral anticoagulant therapy. An INR of 2.0-3.0 is suggested for deep vein thrombosis/pulmonary embolism. Specimen Blood Performing Organization Address City/[facility] [place] [address] PATHOLOGY AND [facility] * CBC hemogram (06/26/2017 5:00 AM CDT) Only the most recent of 3 results within the time period is included. WBC 6.93 4.50 - 11.00 k/uL [facility] DEPARTMENT OF PATHOLOGY AND GENOMIC MEDICINE RBC 2.85 (L) 4.40 - 6.00 m/uL [facility] DEPARTMENT OF PATHOLOGY AND GENOMIC MEDICINE HGB 8.1 (L) 14.0 - 18.0 g/dL [facility] DEPARTMENT OF PATHOLOGY AND GENOMIC MEDICINE HCT 25.5 (L) 41.0 - 51.0 % [facility] DEPARTMENT OF PATHOLOGY AND GENOMIC MEDICINE MCV 89.5 82.0 - 100.0 fL [facility] DEPARTMENT OF PATHOLOGY AND GENOMIC MEDICINE MCH 28.4 27.0 - 34.0 pg [facility] DEPARTMENT OF PATHOLOGY AND GENOMIC MEDICINE MCHC 31.8 31.0 - 37.0 g/dL [facility] DEPARTMENT OF PATHOLOGY AND GENOMIC MEDICINE RDW - SD 56.8 (H) 37.0 - 55.0 fL [facility] DEPARTMENT OF PATHOLOGY AND GENOMIC MEDICINE MPV 11.0 8.8 - 13.2 fL [facility] DEPARTMENT OF PATHOLOGY AND GENOMIC MEDICINE Platelet count 182 150 - 400 k/uL [facility] DEPARTMENT OF PATHOLOGY AND GENOMIC MEDICINE Nucleated RBC 0.40 /100 WBC [facility] DEPARTMENT OF PATHOLOGY AND GENOMIC MEDICINE Specimen Blood Performing Organization Address City/[facility] Phone Number [address] [address] PATHOLOGY AND [facility] * POC glucose (06/25/2017 12:13 PM CDT) Only the most recent of 5 results within the time period is included. POC glucose 99 65 - 99 mg/dL [facility] DEPARTMENT OF Comment: PATHOLOGY AND [facility] Notified RN GENOMIC MEDICINE Meter ID: [id number] Vp Strategic Planning: Kleber Whitney Performing Organization Address [facility] [place] [address] PATHOLOGY AND GENOMIC MEDICINE * Total iron binding capacity (06/25/2017 4:00 AM CDT) Iron level 23 (L) 59 - 158 ug/dL [facility] DEPARTMENT OF PATHOLOGY AND GENOMIC MEDICINE Iron binding capacity 270 200 - 400 ug/dL [facility] DEPARTMENT OF PATHOLOGY AND GENOMIC MEDICINE % Saturation 8.5 (L) 20.0 - 40.0 % [facility] DEPARTMENT OF PATHOLOGY AND GENOMIC MEDICINE Specimen Plasma specimen Performing Organization Address [facility] [place] [address] PATHOLOGY AND GENOMIC MEDICINE * Magnesium level (06/25/2017 4:00 AM CDT) Magnesium 1.6 1.6 - 2.4 mg/dL [facility] DEPARTMENT OF PATHOLOGY AND GENOMIC MEDICINE Specimen Plasma specimen Performing Organization Address [facility] [place] [address] PATHOLOGY AND GENOMIC MEDICINE * Ferritin level (06/25/2017 4:00 AM CDT) Ferritin level 91 30 - 400 ng/mL [facility] DEPARTMENT OF PATHOLOGY AND GENOMIC MEDICINE Specimen Plasma specimen Performing Organization Address [facility] [place] [address] PATHOLOGY AND GENOMIC MEDICINE * ECG 12 lead (06/24/2017 10:44 AM CDT) Ventricular rate 93 [facility] MUSE Atrial rate 93 [facility] MUSE WI interval 138 [facility] MUSE QRSD interval 136 [facility]USE QT interval 374 [facility] MUSE QTC interval 465 [facility] MUSE P axis 1 67 [facility] QRS axis 1 48 [facility]USE T wave axis 25 [facility] EKG impression Normal sinus rhythm-Right [facility] MUSE bundle branch block-Abnormal ECG-In automated comparison with ECG of 23-JUN-2017 09:37,-No significant change was found- Performing Organization Address City/[facility] Phone Number [address] [place] [address] * Smear review (06/24/2017 7:57 AM CDT) Platelet slide review Tony adequate [facility] DEPARTMENT OF PATHOLOGY AND GENOMIC MEDICINE Anisocytosis Moderate [facility] DEPARTMENT OF PATHOLOGY AND GENOMIC MEDICINE Polychromasia Moderate [facility] DEPARTMENT OF PATHOLOGY AND GENOMIC MEDICINE Ovalocytes Moderate [facility] DEPARTMENT OF PATHOLOGY AND GENOMIC MEDICINE Performing Organization Address City/State/Zipcode Phone Number [facility] DEPARTMENT [address] [address] PATHOLOGY AND GENOMIC MEDICINE after 06/24/2017 Insurance Payer Benefit Subscriber ID Type Phone Address Plan / Group MEDICARE MEDICARE xxxxxxxxxx Medicare [place], [place] PART A AND B [employer] [place] [employer] [place] Advance Directives Patient has advance care planning documents on file. For more information, liz mendoza contact: Varinder Jerome [address] [place] [address]
[2018-06-25] MEDS: ALBUTEROL SULF 0.083% NEB SOLN 3 ML NEB NEB SCH ×2 (19:22→22:55)
[2018-06-25] MEDS: IPRATROPIUM BROMIDE 0.02% 2.5 ML NEB NEB SCH (19:22)
[2018-06-25 19:56] VITALS: BP 163/70
[2018-06-25] MEDS ORDERED: CEFEPIME 2 GM/NS 0.9% 100 ML 100 ML IV SCH (20:00)
[2018-06-25 20:08] VITALS: BP 142/69
--- NOTE | 2018-06-25 20:15 | NUR ---
PATIENT ARRIVED ON FLOOR TO ROOM 105. PATIENT IS A/OX4 WITH THE VITAL SIGNS WITHIN THE WNP. PATIENT IS PRESENTED WITH BIBASILAR PNEUMONIA, AMS, AND HEADACHE. PATIENT WAS NOT PRESENTED WITH FEVER IN ER AND MED-SURG 1. PATIENT IS PRESENTED WITH SEVERAL SKIN WOUND DUE TO FALL ON 06/13/2018 AND ARE NOTED SUSPECTED DEEP TISSUE INJURY ON BUE. PATIENT HAD RIGHT BIG TOE AMPUTATED DUE TO BLISTER FORMING ON THE ANTERIOR ASPECT OF THE RIGHT FOOT WHICH IS COVERED WITH DRESSING. PATIENT IS ON 2L NC @ 99-100%. PITTING EDEMA +2-3 IS NOTED ON BLE FROM THE KNEES TO THE FEET. PATIENT HAS TREMORS ON BUE AND WEAKNESSES OF THE BLE REQURING STANDBY-ASSISTANCE DURING STANDING AND AMBULATION. WALKER IS PROVIDED WITH URINAL. SCD APPLIED ON BLE. MONITOR AIRWAY/BREATHING.
[2018-06-25 20:26] VITALS: BP 142/69
[2018-06-25 21:22] LABS: PLATELET ESTIMATE ADEQUATE; PLATELET MORPHOLOGY COMMENT NORMAL; RBC MORPHOLOGY COMMENT ABNORMAL
[2018-06-25] MEDS ORDERED: GABADONE CAPSU1 EACH PO (21:22)
[2018-06-25 21:24] LABS: ANISOCYTOSIS MODERATE; OVALOCYTES FEW
[2018-06-25] MEDS ORDERED: PRIMIDONE1 GM PO (21:24)
[2018-06-25 21:25] LABS: HYPOCHROMASIA SLIGHT; POIKILOCYTOSIS SLIGHT
[2018-06-25] MEDS ORDERED: NORCO 10-325 T1 EACH PO (21:27)
[2018-06-25] MEDS ORDERED: DOCUSATE SODIU100 MG PO (21:31)
[2018-06-25] MEDS ORDERED: ANORO (21:31)
[2018-06-25] MEDS ORDERED: POLYETHYLENE G454 GM (21:31)
[2018-06-25] MEDS ORDERED: CEFEPIME HCL 2 GM/SOD CHL 0.9% 100 ML BAG IV SCH (22:00)
[2018-06-26] VITALS (9 sets, daily range): BP systolic 120–152; BP diastolic 58–69
[2018-06-26] MEDS: ALBUTEROL SULF 0.083% NEB SOLN 3 ML NEB NEB SCH ×5 (00:35→18:40)
[2018-06-26] MEDS ORDERED: CEFEPIME HCL IV ONE (04:00)
[2018-06-26] MEDS ORDERED: SODIUM CHLORIDE 0.9% IV ONE (04:00)
[2018-06-26 06:04] LABS: BASOPHILS % 0.3 % (0.0-1.0); EOSINOPHILS % 0.7 % (0.0-6.0); HEMATOCRIT 27.5 % (38.2-49.6); HEMOGLOBIN 7.5 g/dL (14.0-18.0); LYMPHOCYTES # (AUTO) 1.2 (1.0-3.2); LYMPHOCYTES % 19.6 % (18.0-39.1); MEAN CORPUSCULAR HEMOGLOBIN 22.3 pg (28-32); MEAN CORPUSCULAR HGB CONC 27.3 g/dL (31-35); MEAN CORPUSCULAR VOLUME 81.6 fL (81-99); MONOCYTES # (AUTO) 0.5 (0.2-0.8); NEUTROPHILS # (AUTO) 4.2 (2.1-6.9); NEUTROPHILS % 69.7 % (38.7-80.0); PLATELET COUNT 399 x10e3/uL (140-360); RED BLOOD COUNT 3.37 x10e6/uL (4.3-5.7); RED CELL DISTRIBUTION WIDTH 26.5 % (11.7-14.4)
[2018-06-26 06:22] LABS: ANION GAP 9.2 mmol/L (8-16); CALCIUM 8.4 mg/dL (8.4-10.2); CREATININE, SERUM 1.46 mg/dL (0.72-1.25); POTASSIUM 4.2 mmol/L (3.5-5.1)
[2018-06-26] MEDS: IPRATROPIUM BROMIDE 0.02% 2.5 ML NEB NEB SCH ×3 (06:29→18:40)
--- NOTE | 2018-06-26 06:36 | Diagnostic Imaging Report ---
EXAMINATION: CHEST SINGLE (PORTABLE) INDICATION: ^PNEMONIA COMPARISON: Chest x-ray 06/25/2018. FINDINGS: AP view TUBES and LINES: None. LUNGS: Lungs are not well inflated. Patchy airspace opacities in both lung bases, left greater than right, remain unchanged. PLEURA: No pleural effusion or pneumothorax. HEART AND MEDIASTINUM: The cardiomediastinal silhouette is unremarkable. BONES AND SOFT TISSUES: No acute osseous lesion. Soft tissues are unremarkable. UPPER ABDOMEN: No free air under the diaphragm. IMPRESSION: Unchanged patchy airspace opacities in bilateral lung bases, left greater than right, likely represents pneumonia. Signed by: Dr. Rafita Edouard M.D. on 06/26/2018 6:33 AM
[2018-06-26 06:44] LABS: CREATINE KINASE MB 0.6 ng/mL (0-5.0)
[2018-06-26] MEDS ORDERED: NITROGLYCERIN 0.4 MG SUBL SL PRN (07:00)
[2018-06-26] MEDS ORDERED: DOCUSATE SODIUM 100 MG CAP PO SCH (07:00)
[2018-06-26] MEDS ORDERED: BISACODYL 5 MG TAB EC PO SCH (07:15)
[2018-06-26] MEDS: SODIUM CHLORIDE 0.9% 1000ML 1,000 ML IV SCH (07:28)
[2018-06-26] MEDS: HYDROCODONE/APAP 10MG-325MG TAB PO PRN ×4 (07:34→21:58)
[2018-06-26] MEDS ORDERED: FUROSEMIDE 40 MG TAB PO SCH (09:00)
[2018-06-26] MEDS ORDERED: ASPIRIN 81 MG CHEW TAB PO SCH (09:00)
[2018-06-26 09:21] LABS: EOSINOPHILS % (MANUAL) 1 % (0-7); MONOCYTES % (MANUAL) 8 % (3.4-9.0); NEUTROPHILS % (MANUAL) 69 % (40-74)
[2018-06-26 09:22] LABS: BAND NEUTROPHILS % (MANUAL) 3 %; LYMPHOCYTES % (MANUAL) 19 % (19-48)
[2018-06-26 09:23] LABS: OVALOCYTES FEW; PLATELET ESTIMATE SLIGHTLY INCREASED; POLYCHROMASIA FEW
[2018-06-26 09:24] LABS: RBC MORPHOLOGY COMMENT ABNORMAL; SCHISTOCYTES FEW
[2018-06-26] MEDS: OMEPRAZOLE 20 MG CAP PO SCH ×2 (09:47→18:04)
[2018-06-26] MEDS: POTASSIUM CHLORIDE 20 MEQ TAB CR PO SCH ×2 (09:47→18:04)
[2018-06-26] MEDS: CITALOPRAM HYDROBROMIDE 20 MG TAB PO SCH (09:47)
[2018-06-26] MEDS: AMIODARONE HCL 200 MG TAB PO SCH (09:47)
[2018-06-26] MEDS: ALLOPURINOL 300 MG TAB PO SCH (09:48)
[2018-06-26] MEDS: ATENOLOL 50 MG TAB PO SCH ×2 (09:48→18:04)
--- NOTE | 2018-06-26 10:12 | NUR ---
Pt A&O x3. NC 2L, SOB observed during exertion. Pt up to bathroom, BM noted at this time. Pt requested for warm prune juice and butter. Walker at bedside for use of urinal and wheelchair for use of bathroom, due to BLE weakness. IV to R AC 20, patent intact, no swelling or redness noted to insertion site. NS at 75. IV wrapped at this time, pt and pt's stated pt is allergic to tape, forms blisters. Paper tape for short amount of time is acceptable. Skin tears noted to BUE, covered with Tegaderm at this time. Dressing to R foot due to previous blister. R foot big toe amputation. Pt c/o KEYES, pain medication administered, pt stated pain being a 5-6/10. Tremors noted to BUE. Pt is able to take PO medications without difficulty. Bed in lowest position, call light within reach. Pt aware to call for assistance if needed.
--- NOTE | 2018-06-26 11:41 | Diagnostic Imaging Report ---
Examination: Brain MRI without Contrast History: Altered mental status. Comparison studies: Head CT dated 06/25/2018. Technique: Precontrast: Hi resolution Sag T1 with coronal and axial reformats. Axial DWI, T2, T2 flair, gradient echo or SWI Intravenous contrast: None. Findings: Structural lesions: There is an acute infarct of the left middle cerebral artery territory, specifically involving the posterior aspect of the left insular cortex. This finding is best seen on brain MRI when compared to recent head CT. A new collection (T1 and FLAIR hyperintense area with maximal thickness of 1.7cm in the distal left sylvian fissure) is seen within the left sylvian fissure and anterior left temporal pole. No associated gradient signal to suggest hemorrhage. No midline shift or herniation. Atrophy: General: Moderate generalized volume loss. Focal: No disproportionate lobar, hippocampal, mesencephalic, pontine, or cerebellar atrophy. Prince matter: Cortex:No signal abnormalities. No encephalomalacia. Basal ganglia: No atrophy or signal abnormalities. Thalami: No signal abnormalities. Micro hemorrhages: None. White matter signal intensity: There are patchy and punctate areas of T2/FLAIR hyperintensity in the periventricular and subcortical white matter, nonspecific.. Subarachnoid spaces: No signal abnormalities. Ventricles: Normal in size and configuration. No hydrocephalus. Hippocampi, fornix and mammillary bodies: Normal in size and symmetric. Other: Skull: No bone marrow abnormalities. Vessels: Expected flow voids present in the major arteries and dural sinuses.. Sella: Normal in size. No intra-or suprasellar abnormalities. Cranio-cervical junction: No abnormalities. Patent foramen magnum. No Chiari one malformation. Paranasal sinuses: Mild T2 hyperintense mucosal thickening along the right maxillary sinus. Orbits: Bilaterals slitlike lenses. IMPRESSION: 1. Small acute, nonhemorrhagic infarct of the posterior left insular cortex, which is best seen on brain MRI when compared to recent head CT. 2. A small collection of the left sylvian fissure and left anterior temporal convexity, which is isodense to brain on yesterday's head CT, and could represent subacute hemorrhage and less likely other extra-axial process such as infection or inflammation. No midline shift or herniation. 3. Mild chronic microvascular ischemic change and moderate volume loss. Findings discussed with Nurse Chávez, who is in direct care of the patient, on 06/26/2018 at 1123 hours. Patient's imaging findings directly discussed with Dr. Hnog, who provided more contributory information, on 06/26/2018 at 1129 hours. Signed by: Dr. Vanessa Burroughs M.D. on 06/26/2018 11:38 AM
[2018-06-26] MEDS: CEFEPIME 2 GM/NS 0.9% 100 ML 100 ML IV SCH ×2 (13:52→20:49)
[2018-06-26] MEDS: WARFARIN SOD 3 MG TAB PO SCH (18:04)
[2018-06-26] MEDS: AZITHROMYCIN 500MG/NS 250 ML 250 ML IV SCH (18:05)
[2018-06-26] MEDS: ATORVASTATIN 20 MG TAB PO SCH (20:49)
[2018-06-27] VITALS (8 sets, daily range): BP systolic 128–157; BP diastolic 61–72
[2018-06-27] MEDS: IPRATROPIUM BROMIDE 0.02% 2.5 ML NEB NEB SCH ×4 (00:35→19:20)
[2018-06-27] MEDS: ALBUTEROL SULF 0.083% NEB SOLN 3 ML NEB NEB SCH ×6 (03:00→23:00)
[2018-06-27] MEDS: CEFEPIME 2 GM/NS 0.9% 100 ML 100 ML IV SCH ×3 (03:46→20:00)
[2018-06-27] MEDS ORDERED: SODIUM CHLORIDE 0.9% 1000ML 0 ML ONE (03:57)
[2018-06-27] MEDS ORDERED: SODIUM CHLORIDE 0.9% 250ML 250 ML ONE (04:43)
[2018-06-27 06:42] LABS: BASOPHILS % 0.4 % (0.0-1.0); EOSINOPHILS # (AUTO) 0.1 (0.0-0.4); EOSINOPHILS % 1.2 % (0.0-6.0); HEMATOCRIT 29.1 % (38.2-49.6); HEMOGLOBIN 7.9 g/dL (14.0-18.0); LYMPHOCYTES # (AUTO) 1.4 (1.0-3.2); LYMPHOCYTES % 20.5 % (18.0-39.1); MEAN CORPUSCULAR HEMOGLOBIN 22.8 pg (28-32); MEAN CORPUSCULAR HGB CONC 27.1 g/dL (31-35); MEAN CORPUSCULAR VOLUME 83.9 fL (81-99); MONOCYTES # (AUTO) 0.6 (0.2-0.8); MONOCYTES % 8.8 % (4.4-11.3); NEUTROPHILS # (AUTO) 4.5 (2.1-6.9); NEUTROPHILS % 67.9 % (38.7-80.0); PLATELET COUNT 419 x10e3/uL (140-360); RED BLOOD COUNT 3.47 x10e6/uL (4.3-5.7); RED CELL DISTRIBUTION WIDTH 26.5 % (11.7-14.4)
[2018-06-27 06:49] LABS: INR 1.52; PROTHROMBIN TIME 18.9 seconds (11.9-14.5)
[2018-06-27 07:00] LABS: ALBUMIN 2.4 g/dL (3.5-5.0); ALBUMIN/GLOBULIN RATIO 0.9 (0.8-2.0); ANION GAP 9.1 mmol/L (8-16); CALCIUM 8.5 mg/dL (8.4-10.2); CREATININE, SERUM 1.36 mg/dL (0.72-1.25); POTASSIUM 4.1 mmol/L (3.5-5.1)
--- NOTE | 2018-06-27 07:10 | NUR ---
pt resting in bed aa0x3. pt is at bedside. pt is on 2l 02 nc. no sob noted. pt had diminished lung sounds over all lobes pt has a left ac 20 g patent and dry pt has a left upper dressing (abrasion) s/p fall at home pt has lower extremity stocking brought from home, noted edema on bilateral lower extr. 2-3 pitting (pt is on iv lasix) pt denies pain. will continue to care for pt at this time, side railsx2, bed wheels locked, call light is within easy reach, instructed to call for assistance if needed
[2018-06-27] MEDS: ASPIRIN 325 MG TAB PO SCH (08:50)
[2018-06-27] MEDS: OMEPRAZOLE 20 MG CAP PO SCH ×2 (08:50→17:13)
[2018-06-27] MEDS: ALLOPURINOL 300 MG TAB PO SCH (08:50)
[2018-06-27] MEDS: FUROSEMIDE INJ 10 MG/ML 4 ML VIAL IV SCH ×2 (08:50→17:39)
[2018-06-27] MEDS: POTASSIUM CHLORIDE 20 MEQ TAB CR PO SCH ×2 (08:50→17:13)
[2018-06-27] MEDS: CITALOPRAM HYDROBROMIDE 20 MG TAB PO SCH (08:50)
[2018-06-27] MEDS: AMIODARONE HCL 200 MG TAB PO SCH (08:50)
[2018-06-27] MEDS: ATENOLOL 50 MG TAB PO SCH ×2 (08:50→17:14)
[2018-06-27] MEDS ORDERED: LEUCOVORIN CALCIUM 5 MG TABLET PO SCH (09:00)
--- NOTE | 2018-06-27 11:00 | NUR ---
CASE MANAGEMENT ASSESSMENT Mds Rn to bedside to discuss plan of care with patient/family. CM/SW role and care transitions discussed. Anticipated discharge plan discussed along with duration of care. CM/SW discussed patients right to make decisions in care. CM/SW work hours given. Spoke to pt's Sindy Patient lives: with Sindy Admit/Transfer: thru ED Hospital/ER visits since last admit: 1 ER visit POA/Emergency contact: Sindy Casiano [phone] Current/Previous Home Health: none PCP/Follow-up Care: Dr. Hong - PCP; advised pt and his to follow up with MD within 5-7 days of discharge Current/Previous DME: wheelchair, walker, rollator, BSC Medications (referring to index hospitalization or the first time you were in the hospital) a. Were changes made in your medications when you were in the hospital on [date of index hospitalization]? n/a b. Did you understand the changes? n/a c. Were you able to obtain your new medications right away? n/a d. Were you able to take your medications like the doctor wanted you to? n/a e. Did the hospital give you an accurate, easy to understand list of medications when you left? n/a Scale of 1-10 how comfortable does patient feel with disease management in outpatient settin Other Services: none Employment Status: retired Areas of Concerns: pneumonia / AMS / small acute infarct Referral Needs: inpatient rehab Education Needs: pneumonia, CVA IMM/POON given and signed (if applicable): none at this time Goal for discharge: inpatient rehab Received order for inpatient rehab eval. choice letter signed for [facility] and placed in chart. Copy to pt's . CM/SW left business card at the bedside with contact information. Name and number was also written on the patients whiteboard. Patient verbalized understanding of discussion. CM will follow-up with ongoing discharge and transition of care needs.
--- NOTE | 2018-06-27 12:24 | NUR ---
Referral was faxed to [facility]. Enma Finley, liaison with [facility] was notified. P [phone] F [phone]
--- NOTE | 2018-06-27 16:05 | NUR ---
CALLED IN CONSULT TO [facility]. NO ANSWER . LEFT VOICEMAIL TO CELL PHONE AT THIS TIME
--- NOTE | 2018-06-27 16:48 | Consultation ---
DATE OF CONSULTATION: 06/27/2018 I would like to thank Dr. Dave Hong for asking me to see Mr. Casiano in consultation. REASON FOR CONSULTATION: 1. Status post acute small left insular cortex CVA. 2. COPD. 3. Coronary artery disease. 4. Anemia. 5. CKD. 6. Essential tremor. HISTORY: Entirely from medical records and chart, the patient and his , who is present during examination. Mr. Casiano is a pleasant, but unfortunate 72-year-old man with multiple medical problems including peripheral vascular disease, who came into the hospital with cough, pneumonia, and expressive aphasia. He had been having difficulty with mobilizing and falling at least 4 times in the recent past, but because of expressive aphasia, underwent workup. MRI of the brain showed a small acute nonhemorrhagic infarct in the posterior left insular cortex, also small collection in the left sylvian fissure with left anterior temporal convexity was isodense and it was thought could be a subacute hemorrhage or less likely extra-axial process such as infection or inflammation. The patient has multiple other medical comorbidities and is currently in the workup. I am being asked to evaluate for rehab needs. He has two or three objects recall for testing of short-term memory. PAST MEDICAL HISTORY: Includes hypertension; anemia; CKD, stage 3; COPD; peripheral vascular disease; right large toe wound, chronic; coronary artery disease; essential tremor; history of lung cancer as well as PE back in 2011. He also had DE in the past. He has had previous history of cellulitis to right leg and PE. PAST SURGICAL HISTORY: Includes partial pneumonectomy, he had previous spontaneous pneumothorax as well as resection of the lung lesion. He has had amputation of right large toe. FAMILY HISTORY: Hypertension runs in the family. HABITS: He no longer smokes or drinks. He stopped many many years ago, although he did do some dip stopped a few years ago as well. ALLERGIES: TAPE AND CODEINE. SOCIAL HISTORY: He lives with his in a one-rebecca home, who is fairly functional. 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 occasionally use the walker and really would not admit to using it; however, apparently, he has been having some falls and unsteady gait especially with his tremors. REVIEW OF SYSTEMS: GENERAL: He has weakness overall. EYES: Negative. EARS: Negative. CARDIAC: As above. He has coronary artery disease, peripheral vascular disease, and in fact, he has had angioplasty in the lower extremities. LUNGS: O2 dependent, easily short of breath. NEUROVASCULAR: He has had numbness to the feet bilaterally due to his cellulitis. HEMATOLOGIC: He has had previous history of PE. Rest of review of systems essentially negative. LABORATORY DATA: White cell count 6.6, hemoglobin 7.9, hematocrit 29.1, platelets of 419. INR is 1.52. IMAGING: Chest x-ray, unchanged. Patchy airspace opacities at the bilateral lung bases. PHYSICAL EXAMINATION: GENERAL: The patient is awake, alert, sitting up. His is at the bedside. He has resting tremor to the upper extremities at this time, not to lower extremities. EYES: Gaze is conjugate. visual field deficits. ORAL: Tongue deviates to left on protrusion. FACE: Pretty much symmetrical at this time. NOSE: No rhinitis. NECK: No JVD. HEART: Regular rate and rhythm. LUNGS: Diminished breath sounds throughout. ABDOMEN: Not distended, nontender. EXTREMITIES: He has some compression garments on his legs right now. Sensory howard, he has diminished sensation to the knees down to the feet bilaterally. Manual muscle testing, he demonstrates essentially 4 to 4+/5 strength to the right upper extremity, 4 to 4-/5 strength in left upper extremity. Right lower extremity 4+/5 strength with hip flexion and extension, 4- to 4/5 strength in the left hip flexion and extension, left knee extension is about 5/5 on the right and 4+/5 on the left, ankle dorsiflexion and planar flexion was 4+/5 on the right and 4-/5 on the left. Therapies to be started. IMPRESSION: 1. Status post left insular cortex cerebrovascular accident. He does have some left-sided weakness, which is new. 2. Pneumonia. 3. O2 dependency. 4. Pulmonary embolism. 5. Chronic kidney disease, stage 3. 6. Anemia, need to be managed. 7. Hypertension. 8. Coronary artery disease. 9. Essential tremor, affecting gait and mobility. 10. History of pulmonary embolism. PLAN: Once workup is complete, he will make an excellent inpatient rehab candidate. He has enough deficits where he could benefit from multidisciplinary intensive rehab program consists of PT, OT, and Speech; however, he also has multiple problems ongoing which will require active ongoing medical management, which cannot be performed skilled unit. We will follow along with you. Thank you once again for allowing me to participate in the care of this patient. Case was discussed with the and the patient at length. Conrad Kerns DO RPL/MODL /[id number]
[2018-06-27] MEDS: WARFARIN SOD 3 MG TAB PO SCH (17:13)
[2018-06-27] MEDS: AZITHROMYCIN 500MG/NS 250 ML 250 ML IV SCH (17:14)
[2018-06-27] MEDS: ATORVASTATIN 20 MG TAB PO SCH (21:00)
[2018-06-28] VITALS (7 sets, daily range): BP systolic 126–143; BP diastolic 60–66
[2018-06-28] MEDS: IPRATROPIUM BROMIDE 0.02% 2.5 ML NEB NEB SCH ×4 (01:25→14:30)
[2018-06-28] MEDS: ALBUTEROL SULF 0.083% NEB SOLN 3 ML NEB NEB SCH ×5 (01:49→20:30)
--- NOTE | 2018-06-28 02:25 | Consultation ---
DATE OF CONSULTATION: 06/27/2018 Neurology Consult Note. HISTORY OF PRESENT ILLNESS: Mr. Casiano is a 72-year-old right-hand dominant man with an extensive past medical history, including multiple vascular risk factors, admitted to [facility] on June 23, 2018, with pneumonia and a stroke. A neurology consultation is requested for further evaluation and treatment of stroke. Sometime between 09:00 and 09:30 on the day of admission, the patient was noted to experience the rather sudden onset of expressive aphasia. According to Mr. Casiano's , the patient became less talkative and appeared to have difficulties trying to speak. In addition to the expressive aphasia, Mr. Casiano's reports his speech was "a little slurred." Neither the patient nor his report new or worsening visual field cut or other disturbance, facial droop, hemiparesis, hemihypesthesia, poor balance, gait impairment, dizziness, or confusion. After the patient's speech symptoms persisted for a few hours, Mr. Casiano was brought to the emergency center at [facility] for further evaluation. According to the patient's , they arrived in the emergency center at approximately 1430 on the day of admission. Upon arrival in the emergency center, the patient was afebrile with a blood pressure of 136/96 mmHg and pulse of 73 beats per minute. The patient's neurological examination was documented as demonstrating an abnormal verbal response (expressive aphasia), which was noted to wax and wane. No other deficits were noted. While in the emergency center, the patient underwent a CT of the brain without contrast, which did not reveal evidence of recent large territorial ischemia or hemorrhage. Mr. Casiano was admitted to [facility] as an inpatient for further evaluation and treatment of his symptoms. It should be noted, the patient was experiencing a cough productive of yellow- green sputum at the time of his presentation to the emergency center. A chest x-ray did reveal bilateral pneumonia, further prompting the patient's admission as an inpatient. Mr. Casiano does not report experiencing any symptoms of a stroke previously. The patient is on Coumadin 3 mg by mouth daily for treatment of a prior deep venous thrombosis of the left leg as well as a right pulmonary embolus. According to the patient and his , Mr. Casiano's symptoms have mildly improved during his hospitalization. REVIEW OF SYSTEMS: Shortness of breath (chronic), cough productive of yellow-green sputum, dysarthria, expressive aphasia, numbness in both legs (chronic), tremor (chronic), and multiple recent falls. PAST MEDICAL HISTORY: Hypertension, hyperlipidemia, coronary artery disease with a prior myocardial infarction, COPD, lung cancer status post resection, DVT in the left leg, pulmonary embolus in the right lung, essential tremor, peripheral vascular disease, chronic kidney disease, and osteomyelitis. PAST SURGICAL HISTORY: Surgical procedures to remove blebs from the lungs, cholecystectomy, cervical spine fusion, right meniscus repair, cardiac catheterization with stent placement, multiple angiograms with stents placed, femoral-popliteal bypass of the right leg, amputation of the right great toe, I and D x2, right upper lung lobectomy, and bilateral cataract removal. PAST HOSPITALIZATIONS: Surgeries/procedures as listed, deep venous thrombosis, ulcer of the right great toe, peripheral vascular disease, cellulitis/sepsis. FAMILY MEDICAL HISTORY: The patient's parents are . His father's medical history included a stroke and prostate cancer. Mr. Casiano's mother had coronary artery disease. The patient had 3 siblings, one brother and two sisters. The brother is alive. He has a history of colon and renal cancer. He was recently diagnosed with a glioblastoma multiforme. One sister is alive and has diabetes mellitus. The 2nd sister is from an unknown cancer. Mr. Casiano has 2 children, a son and a daughter, both of whom are alive. The patient's son has hypertension, hyperlipidemia/dyslipidemia, diabetes mellitus, and bipolar disorder. The patient's daughter has lupus. SOCIAL HISTORY: Mr. Casiano is . He is retired. The patient does report a prior history of tobacco use, but quit smoking cigarettes in 1999. The patient quit drinking alcohol approximately 10 years ago. Mr. Casiano does not report current or prior recreational drug use. HOME MEDICATIONS: Reviewed. Please see the list of home medications available in the electronic medical record. HOSPITAL MEDICATIONS: Reviewed. Please see the list of hospital medications available in the electronic medical record. ALLERGIES: CODEINE. NO KNOWN FOOD ALLERGIES. NO KNOWN ALLERGIES TO LATEX. THE PATIENT DOES REPORT AN ALLERGY TO THE ADHESIVE ON TAPE. THE PATIENT DOES NOT REPORT ALLERGIES TO IODINE OR OTHER CONTRAST MATERIALS. PHYSICAL EXAMINATION: VITAL SIGNS: Height 76 inches, weight 277 pounds, BMI 33.7 kg/m2. Blood pressure 135/65 mmHg, pulse 71 beats per minute, respiratory rate 18 breaths per minute, and oxygen saturation 99% on 2 L by nasal cannula. GENERAL: The patient is awake and alert, does not appear distressed. Obese. HEENT: Normocephalic, atraumatic. Pupils are surgical. Moist mucous membranes. NECK: Supple. No appreciable thyromegaly. No appreciable carotid bruits. CARDIOVASCULAR: S1 and S2, regular rate and rhythm. No murmurs, rubs, or gallops. RESPIRATORY: Clear to auscultation bilaterally. No wheezes, rhonchi, or rales. EXTREMITIES: The skin is warm and dry. No clubbing or cyanosis. There is 3+ pitting edema over the forearms, hands, and legs. The posterior tibial and dorsalis pedis pulses are trace and symmetric. SKIN: Multiple abrasions and ecchymoses over the arms and legs. NEUROLOGIC: Memory/Attention: The patient is awake and alert, oriented to person, place, time, and situation. Cranial Nerves: Cranial nerve I - not tested. Cranial nerve II, III, IV, and - the pupils are surgical. Extraocular movements are intact. No nystagmus. Cranial nerve V - sensation to light touch is intact in the bilateral V1 through V3 distributions. Strength in the temporalis and masseter muscles is within normal limits. Cranial nerve VII - the face is asymmetric on the right. However, all facial movements are symmetric. Strength appears to be within normal limits. Cranial nerve VIII - hearing is diminished to finger rub bilaterally. Cranial nerve IX, X - the soft palate elevates equally and symmetrically. Cranial nerve XI - normal strength of the bilateral sternocleidomastoid and trapezius muscles. Cranial nerve XII - the tongue protrudes midline and moves symmetrically from wetm-rt-rtfc. Strength: Bulk is normal. Strength is 5/5 in the bilateral deltoids, biceps, triceps, wrist flexors and extensors, finger flexors and extensors, intrinsic hand muscles, hip flexors, knee flexors and extensors, ankle dorsiflexion and plantar flexion, and intrinsic foot muscles except as follows: The bilateral hip flexors are 4/5, the bilateral knee flexors are 4+/5, bilateral ankle dorsiflexion is 4/5. Tone is normal. DTRs: Deep tendon reflexes are trace and symmetric at the triceps, biceps, and brachioradialis. Deep tendon reflexes are absent and symmetric at the patellas. Plantar responses are flexor bilaterally. Sensation: Sensation is intact to light touch in both arms and both legs. Cerebellar: Odewbg-nbgs-vhijxc and heel-zheng movements are intact with a positive intention tremor affecting both hands and arms. Gait: Deferred. Speech: Spontaneous speech is mildly dysarthric with mild to moderate expressive aphasia. Repetition is intact. Involuntary movements: A moderate frequency, high amplitude tremor affecting both hands is seen with action. Pronator Drift: None. LABORATORY DATA: The most recent comprehensive metabolic panel is significant for an elevated creatinine of 1.36 with an estimated GFR of 51, total protein of 5.1, and albumin of 2.4. Cardiac enzymes are negative x3. TSH 4.321. Ammonia 39. The most recent CBC with differential and platelets reveals a white blood cell count of 6.68 with a normal differential. The hemoglobin and hematocrit are 7.9 and 29.1, respectively. The platelet count is 419. PT 18.9, INR 1.52. A urinalysis collected on June 25, 2018, revealed 6-10 white blood cells, few urine epithelial cells, moderate transitional epithelial cells, and no bacteria. A urine culture collected on June 25, 2018, revealed no growth after 36-48 hours. Blood cultures collected on June 25, 2018, revealed no growth after 48 hours. A sputum culture is pending. DIAGNOSTIC STUDIES: Electrocardiogram of 06/25/2018: Normal sinus rhythm at 73 beats per minute. Right bundle-branch block. Chest x-ray 06/25/2018: Low lung volumes with patchy opacities at lung bases, left greater than right, which may reflect pneumonia in the appropriate clinical setting. Suggest followup chest radiograph in 6-8 weeks to assess for resolution. CT of the brain without contrast 06/25/2018: On my review, there is no evidence of recent large territorial ischemia, hemorrhage, mass, or mass effect. There is no evidence of remote vascular injury. There is moderately severe diffuse cerebral atrophy with compensatory dilatation of the ventricles, more than expected for the patient's age. Their findings compatible with kdvy-eu-cjvqaqty chronic small-vessel ischemic disease. Chest x-ray 06/26/2018: Unchanged patchy airspace opacities in the bilateral lung bases, left greater than right, likely represents pneumonia. MRI of the brain without contrast 06/26/2018: On my review, there is an acute ischemic stroke in the left middle cerebral artery distribution, specifically involving the posterior aspect of the left insular cortex. There appears to be a small collection of fluid within the left sylvian fissure and left anterior temporal lobe, possibly representing a subacute subarachnoid hemorrhage. No remote vascular insults are appreciated. Once again, there is moderate diffuse cerebral atrophy with compensatory dilatation of the ventricles, more than expected for the patient's age. There are scattered, confluent T2/FLAIR hyperintense foci in the supratentorial deep white matter compatible with moderate chronic small vessel ischemic disease. Bilateral carotid artery ultrasound with Doppler 06/27/2018: There is no atherosclerosis in the right carotid artery system. There is atherosclerosis without hemodynamically significant stenosis at the left carotid bulb, left carotid bifurcation, and left internal carotid artery. Flow is antegrade in the bilateral vertebral arteries. ASSESSMENT AND PLAN: Mr. Casiano is a 72-year-old man with an extensive past medical history, including multiple vascular risk factors, admitted to [facility] on June 25, 2018, with bilateral pneumonia as well as an acute ischemic stroke in the subcortical left middle cerebral artery distribution. The patient has undergone a thorough neurological examination with findings detailed above. The patient's laboratory data and other diagnostic studies have been reviewed and are documented above. RECOMMENDATIONS: As follows: 1. A lipid panel and hemoglobin A1c will be ordered. 2. An echocardiogram will be ordered. 3. Mr. Casiano will be placed back on telemetry to evaluate for an intermittent cardiac arrhythmia as the source of his recent stroke. 4. After discussing the risks and benefits of anticoagulant medications, Dr. Hong and I decided to continue treatment with warfarin 3 mg by mouth daily for stroke prophylaxis as well as for treatment of a prior DVT and PE. 5. The patient's goal blood pressure is less than 140/90 mmHg at the time of discharge. At present, the patient's blood pressures are at goal. Continue to monitor vital signs per unit protocol and add/adjust medications as appropriate. 6. The patient's goal total cholesterol is less than 200 with a LDL of less than 70. Follow up the results of the lipid panel. In the interim, continue treatment with Lipitor 20 mg by mouth at bedtime daily. 7. The patient's goal hemoglobin A1c is less than 7.0. Follow up the results of the hemoglobin A1c. Tight glycemic control is recommended while the patient is in the hospital. 8. Continue with speech and physical therapy. 9. GI prophylaxis with omeprazole 20 mg by mouth twice daily. DVT prophylaxis with warfarin. 10. As regard to the possible subarachnoid hemorrhage - the collection of fluid appears to be subacute. This fluid will gradually be resorbed over the next several weeks. I would recommend against holding anticoagulation at this time. 11. Essential tremor - continue treatment with the patient's home medication of primidone 50 mg by mouth daily. 12. Defer treatment of the remaining medical comorbidities to the primary and other services following the patient. Thank you for this consultation. I will continue to follow the patient while he remains in the hospital. TIME SPENT: 70 minutes. Kaye Alicea MD CP/GERONIMO /[id number] LEONELA
[2018-06-28] MEDS: CEFEPIME 2 GM/NS 0.9% 100 ML 100 ML IV SCH ×3 (04:00→20:35)
[2018-06-28] MEDS ORDERED: MAGNESIUM SULFATE 2GM/50ML 50 ML IV ONE (04:45)
[2018-06-28 05:53] LABS: BASOPHILS % 0.4 % (0.0-1.0); EOSINOPHILS # (AUTO) 0.1 (0.0-0.4); EOSINOPHILS % 0.8 % (0.0-6.0); HEMATOCRIT 27.9 % (38.2-49.6); HEMOGLOBIN 7.6 g/dL (14.0-18.0); LYMPHOCYTES # (AUTO) 1.2 (1.0-3.2); LYMPHOCYTES % 16.4 % (18.0-39.1); MEAN CORPUSCULAR HEMOGLOBIN 22.7 pg (28-32); MEAN CORPUSCULAR HGB CONC 27.2 g/dL (31-35); MEAN CORPUSCULAR VOLUME 83.3 fL (81-99); MONOCYTES # (AUTO) 0.6 (0.2-0.8); MONOCYTES % 7.5 % (4.4-11.3); NEUTROPHILS # (AUTO) 5.4 (2.1-6.9); NEUTROPHILS % 73.9 % (38.7-80.0); PLATELET COUNT 452 x10e3/uL (140-360); RED BLOOD COUNT 3.35 x10e6/uL (4.3-5.7); RED CELL DISTRIBUTION WIDTH 26.1 % (11.7-14.4)
[2018-06-28 06:14] LABS: ALBUMIN 2.2 g/dL (3.5-5.0); ALBUMIN/GLOBULIN RATIO 0.8 (0.8-2.0); ANION GAP 9.3 mmol/L (8-16); CALCIUM 8.6 mg/dL (8.4-10.2); CREATININE, SERUM 1.42 mg/dL (0.72-1.25); POTASSIUM 4.3 mmol/L (3.5-5.1)
[2018-06-28 06:40] LABS: CHOL/HDL RATIO 2.4 (3.9-4.7)
--- NOTE | 2018-06-28 07:30 | NUR ---
Informed Dr. Hong of patient running 6 seconds of Afib/flutter. stated he has a history of it. No new orders
--- NOTE | 2018-06-28 07:34 | NUR ---
Rcvd patient in report this am. Patient is asleep in bed at this time. NO s/s of distress noted
[2018-06-28] MEDS: FUROSEMIDE INJ 10 MG/ML 4 ML VIAL IV SCH ×2 (09:10→16:43)
[2018-06-28] MEDS: ASPIRIN 325 MG TAB PO SCH (09:10)
[2018-06-28] MEDS: ATENOLOL 50 MG TAB PO SCH ×2 (09:11→17:29)
[2018-06-28] MEDS: OMEPRAZOLE 20 MG CAP PO SCH ×2 (09:11→17:29)
[2018-06-28] MEDS: CITALOPRAM HYDROBROMIDE 20 MG TAB PO SCH (09:11)
[2018-06-28] MEDS: AMIODARONE HCL 200 MG TAB PO SCH (09:11)
[2018-06-28] MEDS: ALLOPURINOL 300 MG TAB PO SCH (09:11)
[2018-06-28] MEDS: POTASSIUM CHLORIDE 20 MEQ TAB CR PO SCH ×2 (09:11→17:29)
--- NOTE | 2018-06-28 11:49 | Diagnostic Imaging Report ---
Exam: Modified barium swallow performed in conjunction with Speech Pathology dated 06/28/2018 at 9:43 AM History: Altered mental status; bibasilar pneumonia Comparison: None available Findings: Swallowing mechanism was observed and recorded with fluoroscopy in the lateral position with barium impregnated liquids and semisolid's. There is premature spillage over the base of the tongue with all consistencies. There is delayed swallowing initiation. Laryngeal penetration was noted with only nectar thick liquids. No aspiration was elicited. Fluoroscopy time: 11 seconds Cumulative area dose product: 14.5 cGycm2 Impression: 1. Minimal laryngeal penetration with no evidence of aspiration. 2. Please see the full written report provided by the Speech Pathologist. Signed by: Dr. Liban Mcneil DO on 06/28/2018 11:46 AM
--- NOTE | 2018-06-28 11:59 | NUR ---
ST Note: Attempted to see pt for speech and language therapy. Pt just finished getting cleaned from moderate bowel movement and quite fatigued. pt deferred therapy at this time. Will f/u later today time permitting.
[2018-06-28 13:33] LABS: RBC MORPHOLOGY COMMENT NORMAL
[2018-06-28 13:34] LABS: ANISOCYTOSIS SLIG; HYPOCHROMASIA MODERATE; POIKILOCYTOSIS SLIGHT
[2018-06-28 13:35] LABS: PLATELET ESTIMATE ADEQUATE; PLATELET MORPHOLOGY COMMENT NORMAL
--- NOTE | 2018-06-28 13:42 | NUR ---
Received MOT from Viki Whelan with [facility] [address], [place] [id number] RM [id number] Dr. Conrad Kerns to attend Admin: Myles Griffin Transfer after 6pm. MOT was completed and placed at nurses station. BRANDON Vega was informed of bed assignment.
--- NOTE | 2018-06-28 15:09 | Consultation ---
DATE OF CONSULTATION: REASON FOR CONSULT: Changes on rhythm strip. HISTORY OF PRESENT ILLNESS: Mr. Casiano is a 72-year-old gentleman with past medical history as listed below, was initially admitted with mental status change and confusion. Reportedly, there was some decreased responsiveness. He was noted to have pneumonia, started on antibiotics. The patient is currently getting antibiotics today. On his rhythm strip, the patient was noted to have changes suggestive of atrial flutter/NSVT. There was no change in the patient's status at that time. The patient is more alert and oriented, although he is not his previous self. He is able to answer questions. is at the bedside. Denies any chest pain or unusual shortness of breath. He feels tired and achy all over his body. Physical Therapy have been not walking him and the plan is to send him to inpatient rehab at [facility]. The patient's MRI showed that he had CVA. REVIEW OF SYMPTOMS: CONSTITUTIONAL: Some fatigue and weakness. HEENT: No headache, blurring of vision, seizure, or syncope. CARDIOVASCULAR: No chest pain. Had some dyspnea, orthopnea, and PND. RESPIRATORY: No cough or fever. GI: No abdominal pain, vomiting, or diarrhea. ALLERGIES: CODEINE AND TAPE. MEDICATIONS: See list. PAST MEDICAL HISTORY: 1. History of CAD and stent placement. 2. History of lung cancer and lung resection. 3. History of DVT and pulmonary embolism. 4. History of chronic kidney disease. 5. History of hypertension. 6. History of PAD and history of femoral-popliteal bypass, right leg. PAST SURGICAL HISTORY: 1. History of cholecystectomy. 2. History of C-spine fusion. 3. History of right femoral-popliteal bypass. 4. History of right great toe amputation. 5. History of coronary stent placement. 6. History of lung surgery. SOCIAL HISTORY: The patient used to smoke in the past. He does not drink alcohol. FAMILY HISTORY: Noncontributory. PHYSICAL EXAMINATION: GENERAL: Slightly obese gentleman, who is awake and alert, but slow to respond. VITAL SIGNS: Heart rate is 75, blood pressure 126/61, respiratory rate is 18, and temperature 97.7. HEENT: Atraumatic. NECK: No JVD, bruit, thyromegaly, or lymphadenopathy. CARDIOVASCULAR: First and second heart sounds heard. No murmurs, rubs, or gallops appreciated. CHEST: Decreased air entry at the bases. No adventitious sounds appreciated. ABDOMEN: Soft, nontender. EXTREMITIES: Legs are dressed. LABS: Sodium is 136, potassium 4.1, chloride 103, bicarb 28, BUN is 25, creatinine 1.36. Hemoglobin 7.9, hematocrit 29.1, platelets of 419, and white count is 6.6. INR is 1.5. IMAGING: EKG shows sinus rhythm at 73 beats per minute. Right bundle-branch block, secondary ST-T changes. MRI of brain shows small acute nonhemorrhagic infarct in the posterior left insular cortex. Carotid Doppler showed jnfk-ih-xzdolcku left internal carotid stenosis. No DVT on venous Doppler. IMPRESSION: 1. Pneumonia. 2. Cerebrovascular accident. 3. Hypertension. 4. History of deep vein thrombosis. 5. History of pulmonary embolism. 6. Chronic kidney disease. 7. Anemia. 8. History of hypertension. 9. History of coronary artery disease and stent placement. 10. History of back surgery. 11. History of peripheral artery disease and right femoral-popliteal bypass. PLAN: 1. The patient is on antibiotics, can continue the same. 2. Reviewing the rhythm strips shows mostly artifact, probably secondary to 12-lead EKG. 3. The patient's echo shows preserved LV function. 4. Check thyroid function tests. 5. Okay to transfer to rehab from cardiac point of view. We will continue to monitor. 6. Discussed my impression and plan of management with the patient and and they understand. As always, appreciate and thank you much for referral. MD KIKE Gutierrez/GERONIMO /[id number]
--- NOTE | 2018-06-28 16:06 | NUR ---
Dressing changed to left upper arm. Applied xeroform, non adherent and coban. Patient tolerated well. No drainage noted
[2018-06-28] MEDS: AZITHROMYCIN 500MG/NS 250 ML 250 ML IV SCH (16:43)
[2018-06-28 17:04] LABS: INR 1.52; PROTHROMBIN TIME 18.9 seconds (11.9-14.5)
[2018-06-28] MEDS: WARFARIN SOD 3 MG TAB PO SCH (17:29)
--- NOTE | 2018-06-28 18:22 | NUR ---
[facility] Nelda.
[2018-06-28] MEDS: ATORVASTATIN 20 MG TAB PO SCH (20:35)
--- NOTE | 2018-06-28 21:07 | NUR ---
PT OFF UNIT TO [facility] VIA EMS. PT IS ON MASTIC SPRAYER AND O2 VIA NASAL CANNULA. VITAL SIGNS STABLE. BELONGINGS GATHERED BY .
--- NOTE | 2018-06-29 06:57 | Discharge Summary ---
DISCHARGE DIAGNOSES: 1. Acute cerebrovascular accident of the left side. 2. Gram-negative pneumoniae. 3. Hypertension. 4. History of deep vein thrombosis. 5. History of myocardial infarction. 6. Coronary artery disease, history of stent. 7. Benign prostatic hypertrophy. 8. Anemia of chronic kidney disease. 9. Chronic kidney disease, stage 3. HISTORY OF PRESENT ILLNESS AND HOSPITAL COURSE: Please see hospital chart for full details. The patient is a gentleman presented with mental status changes with expressive aphasia. He was found to have a gram-negative pneumonia of the sputum on admission, so he was placed on IV antibiotics and workup for his expressive aphasia showed a CT scan was unremarkable. MRI did show a small left-sided stroke and carotid Dopplers were unremarkable. Lower extremity Dopplers were unremarkable and the echo was unremarkable. The patient was seen by Dr. Kerns and found to be a good rehab candidate. So, the patient was then transferred to rehab with continued IV antibiotics and rehab care. Please see hospital chart for full details. MD JOSE FRANCISCO Yung/GERONIMO /[id number]
--- NOTE | 2018-06-29 08:37 | Progress Note ---
DATE: 06/28/2018 SUBJECTIVE: Mr. Casiano was seen on rounds. Today, he is scheduled to go to inpatient rehab, had an EKG discussed with spouse, working on transport to rehab once cleared. He by Dr. Hong. OBJECTIVE: VITAL SIGNS: Temperature 96.9, respirations 20, heart rate 75, blood pressure 140/66. ASSESSMENT AND PLAN: Clinically, he is doing about the same. Awaiting clearance for inpatient rehab. Discussed with . Conrad Kerns DO RPL/MODL /[id number]
== END 2018-06-28 21:07 | DRG 64 ==
LOC: ER 14:25 → ERHOLD 18:02 → MED/SURG 19:56
PROVIDERS: ADMIT Internal Medicine; ATTEND Internal Medicine
DX: I63.9 Cerebral infarction, unspecified (principal); J15.6 Pneumonia due to other Gram-negative bacteria; J96.21 Acute and chronic respiratory failure with hypoxia; G81.94 Hemiplegia, unspecified affecting left nondominant side; J44.0 Chronic obstructive pulmonary disease with (acute) lower respiratory infection; I48.92 Unspecified atrial flutter; Z86.718 Personal history of other venous thrombosis and embolism; Z79.01 Long term (current) use of anticoagulants; I25.10 Atherosclerotic heart disease of native coronary artery without angina pectoris; Z95.5 Presence of coronary angioplasty implant and graft; D63.1 Anemia in chronic kidney disease; I12.9 Hypertensive chronic kidney disease with stage 1 through stage 4 chronic kidney disease, or unspecified chronic kidney disease; N18.3 Chronic kidney disease, stage 3 (moderate); Z98.62 Peripheral vascular angioplasty status; K21.9 Gastro-esophageal reflux disease without esophagitis; R47.01 Aphasia; Z85.118 Personal history of other malignant neoplasm of bronchus and lung; G25.0 Essential tremor; Z86.711 Personal history of pulmonary embolism; Z99.81 Dependence on supplemental oxygen; R26.9 Unspecified abnormalities of gait and mobility
CPT/HCPCS: 36415; 70450; 70551; 71045; 74230; 80048; 80053; 80061; 81001; 82140; 82550; 82553; 83036; 83735; 84443; 84484; 85025; 85610; 85730; 87040; 87070; 87086; 87186; 87205; 92523; 93005; 93306; 93880; 93970; 94640; 97139; 99285; J0456; J0692; J1940; J3475; J7030; J7050

== ENCOUNTER 2018-11-29 16:18 | Inpatient (IN) | payer MEDICARE, OTHER ==
[~2018-11-29] VITALS: Ht 205.7 cm; Wt 104.8 kg
[~2018-11-29 16:18] MED LIST changes: +ANORO; +DOCUSATE SODIU100 MG PO; +GABADONE CAPSU1 EACH PO; +NORCO 10-325 T1 EACH PO; +POLYETHYLENE G454 GM; +PRIMIDONE1 GM PO
--- OUTSIDE RECORDS SUMMARY | 2018-11-29 16:21 | XMS REPORT | Clinical Summary ---
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 06/27/2018 atenolol (TENORMIN) 25 MG Take 1 tablet 30 tablet 11 tablet (25 mg total) 8 by mouth nightly. 06/27/2018 ferrous sulfate 325 (65 Take 1 tablet 60 tablet 11 FE) MG tablet (325 mg 8 total) by mouth 2 (two) times a day with meals. Active Problems Problem Noted Date PAD (peripheral artery disease) 06/21/2017 Social History Date Tobacco Use Types Packs/Day Years Used Quit: 1999 Former Smoker 1 50 Smokeless Tobacco: Former Quit: 2011 User Comments: smokeless tobacco 2cans/day , used x 24 years , quit 2011 Drinks/Week oz/Week Comments Alcohol Use No Sex Assigned at Date Recorded Not on file Industry Job Start Date Occupation Not on file Not on file Not on file Travel End Travel History Travel Start No recent travel history available. Last Filed Vital Signs Not on file Plan of Treatment Health Maintenance Due Date Last Done Comments COLONOSCOPY SCREENING 1994 SHINGLES VACCINES (#1) 1994 65+ PNEUMOCOCCAL VACCINE 2009 (1 of 2 - PCV13) INFLUENZA VACCINE 10/13/2018 Results Not on fileafter 11/28/2017 Insurance Type Payer Benefit Subscriber ID Effective Phone Address Plan / Dates Group Medicare MEDICARE MEDICARE xxxxxxxxxx 2003-P VARINDER, PART A AND resent [place] B Commercial [employer] xxxxxxxx 2017-P GUS sanchez Advance Directives For more information, please contact: [phone] Patient Stripper And Taper Explanation Type Date Recorded Advance Directives, Living Will and Medical Power of Team Lead Advance Directives, 06/25/2017 9:11 AM Living Will and Medical Power of Team Lead Advance Directives, 06/25/2017 9:11 AM Living Will and Medical Power of Team Lead
--- OUTSIDE RECORDS SUMMARY | 2018-11-29 16:22 | XMS REPORT | Continuity of Care Document ---
Author Author [employer] Organization [employer] Address Unknown Phone Unavailable Care Team Providers Care Engine Lathe Set Up Operator Tool Name Role Phone [employer] Information Exchange Unavailable Unavailable Problems Problem Status Onset Date Classification Date Reported Comments Source UNK Active 10/20/2011 [facility] FLANK PAIN Active 09/06/2011 [facility] KIDNEY STONE Active 09/06/2011 [facility] L RENAL STONE Active 08/25/2011 [facility] Acid reflux Active Problem 09/09/2011 [facility] COPD Active Problem 09/09/2011 [facility] Enlarged prostate Active Problem 09/09/2011 [facility] HT - Hypertension Active Problem 09/09/2011 [facility] Kidney stone Active Problem 09/09/2011 [facility] CALCULUS OF KIDNEY Active [facility] Medications Medication Details Route Status Patient Instructions Ordering Provider Order Date Source ceftriaxone 1 gm, Route: IVPB, Drug form: PDR/INJ, [id number], Start date: 09/07/11 21:00:00, Duration: 30 day, Stop date: 10/06/11 21:00:00 IVPB No Longer Active Farzad 09/08/2011 [facility] lidocaine 1% 0.5 mL, Route: INTRADERM, ONCALL, Start date: 09/07/11 9:00:00, Duration: 1 doses or times INTRADERM No Longer Active Juan Antonio 09/07/2011 [facility] Lactated Ringers Injection IV 1000 mL 1,000 mL, Rate: 25 ml/hr, Infuse over: 40 hr, Route: IV, Dosing Weight 104.545 kg, Total Volume: 1,000, Start date: 09/07/11 8:16:00, Duration: 30 day, Stop date: 10/07/11 8:15:00 IV No Longer Active Juan Antonio 09/07/2011 [facility] gentamicin 156.8175 mg, 3.92 mL, Route: IVPB, Drug form: INJ, [id number], Start date: 09/07/11 6:00:00, Duration: 30 day, Stop date: 10/06/11 22:00:00, Patient's Own Meds: IVPB No Longer Active Nriagu 09/07/2011 [facility] Phenergan 12.5 mg, 0.5 mL, Route: IM, Drug form: INJ, Q2H, PRN as needed for nausea/vomiting, Start date: 09/06/11 21:12:00, Duration: 30 day, Stop date: 10/06/11 21:11:00 IM No Longer Active Farzad 09/07/2011 [facility] Demerol HCl 50 mg, 1 mL, Route: IV, Drug form: INJ, Q2H, PRN as needed for pain, Start date: 09/06/11 21:12:00, Duration: 4 day, Stop date: 09/10/11 21:11:00 IV No Longer Active Farzad 09/07/2011 [facility] gentamicin 120 mg, 3 mL, Route: IV, Drug form: INJ, ONCE, Priority: NOW, Start date: 09/06/11 21:12:00, Stop date: 09/06/11 21:12:00 IV No Longer Active Farzad 09/07/2011 [facility] NS 1000 mL 1,000 mL 1,000 mL, Rate: 75 ml/hr, Infuse over: 13.3 hr, Route: IV, Dosing Weight 104.545 kg, Total Volume: 1,000, Start date: 09/06/11 21:12:00, Duration: 30 day, Stop date: 10/06/11 21:11:00 IV No Longer Active Farzad 09/07/2011 [facility] Zofran 4 mg, 2 mL, Route: IVP, Drug form: INJ, Q8H, PRN as needed for nausea/vomiting, Priority: STAT, Start date: 09/06/11 21:12:00, Duration: 30 day, Stop date: 10/06/11 21:11:00 IVP No Longer Active Farzad 09/07/2011 [facility] morphine Sulfate 4 mg, 2 mL, Route: IVP, Drug form: INJ, Q4H, PRN as needed for pain, Priority: STAT, Start date: 09/06/11 21:12:00, Duration: 30 day, Stop date: 10/06/11 21:11:00 IVP No Longer Active Farzad 09/07/2011 [facility] Protonix 40 mg, 1 tab, Route: PO, Drug form: ECTAB, Before Dinner, Start date: 09/06/11 21:00:00, Duration: 30 day, Stop date: 10/06/11 16:30:00 PO No Longer Active [facility] 09/07/2011 [facility] Zofran 4 mg, 2 mL, Route: IVP, Drug form: INJ, Q4H, PRN Nausea, Start date: 09/06/11 20:21:00, Duration: 30 day, Stop date: 10/06/11 20:20:00 IVP No Longer Active [facility] 09/07/2011 [facility] normal saline 0.9% IV 1,000 mL 1,000 mL, Rate: 100 ml/hr, Infuse over: 10 hr, Route: IV, Dosing Weight 104.545 kg, Total Volume: 1,000, Start date: 09/06/11 20:21:00, Duration: 30 day, Stop date: 10/06/11 20:20:00 IV No Longer Active [facility] 09/07/2011 [facility] morphine Sulfate 2 mg, 1 mL, Route: IVP, Drug form: INJ, Q3H, PRN Pain, Start date: 09/06/11 20:21:00, Duration: 30 day, Stop date: 10/06/11 20:20:00 IVP No Longer Active [facility] 09/07/2011 [facility] Rocephin 1 g/ NS (NaCl 0.9%) 50 mL IV solution 1 gm, Route: IVPB, Drug form: PDR/INJ, [id number], Priority: STAT, Start date: 09/06/11 19:25:00, Duration: 30 day, Stop date: 10/06/11 18:25:00 IVPB No Longer Active [place] 09/07/2011 [facility] Sodium Chloride 0.9% (Bolus) IV 1000 mL 1,000 mL, Rate: 1,000 ml/hr, Infuse over: 1 hr, Route: IV, Dosing Weight 104.545 kg, Total Volume: 1,000, Bolus Dose, Priority: STAT, Start date: 09/06/11 18:55:00, Duration: 1 doses or times, Stop date: 09/06/11 19:54:00 IV No Longer Active Nriagu 09/06/2011 [facility] Zofran 4 mg, 2 mL, Route: IVP, Drug form: INJ, ONCE, Priority: STAT, Start date: 09/06/11 18:43:00, Stop date: 09/06/11 18:43:00 IVP No Longer Active [place] 09/06/2011 [facility] morphine Sulfate 4 mg, 2 mL, Route: IVP, Drug form: INJ, ONCE, Priority: STAT, Start date: 09/06/11 18:43:00, Stop date: 09/06/11 18:43:00 IVP No Longer Active [place] 09/06/2011 [facility] morphine Sulfate 4 mg, 2 mL, Route: IVP, Drug form: INJ, ONCE, Priority: STAT, Start date: 09/06/11 15:48:00, Stop date: 09/06/11 15:48:00 IVP No Longer Active [facility] 09/06/2011 [facility] ondansetron 4 mg, 2 mL, Route: IVP, Drug form: INJ, ONCE, Priority: STAT, Start date: 09/06/11 15:48:00, Stop date: 09/06/11 15:48:00 IVP No Longer Active [facility] 09/06/2011 [facility] Saline Flush 0.9% 5 ml, Route: IVP, Drug Form: INJ, PRN, PRN Line Flush, Start date: 09/06/11 15:48:00, Duration: 24 hr, Stop date: 09/07/11 15:47:00 IVP No Longer Active [facility] 09/06/2011 [facility] Allergies, Adverse Reactions, Alerts Substance Category Reaction Severity Reaction type Status Date Reported Comments Source codeine drug allergy Allergy Active [facility] Tape drug allergy Allergy Active [facility] Immunizations No Data Provided for This Section Results Order Name Results Value Reference Range Date Interpretation Comments Source HEMATOLOGY Plt Morph Normal (09/07/2011 05:54:00) 09/07/2011 Normal [facility] HEMATOLOGY RBC Morph Normal (09/07/2011 05:54:00) 09/07/2011 Normal [facility] HEMATOLOGY Basophils # 0.0 0.0 - 0.2 09/07/2011 Normal [facility] HEMATOLOGY Segs-Bands # 7.9 1.5 - 8.1 09/07/2011 Normal [facility] HEMATOLOGY Monocytes # 0.9 0.0 - 0.8 09/07/2011 [facility] HEMATOLOGY Lymphocytes # 0.9 1.0 - 5.5 09/07/2011 [facility] HEMATOLOGY Eosinophils # 0.0 0.0 - 0.5 09/07/2011 [facility] HEMATOLOGY Lymphocytes 9.5 20.0 - 40.0 09/07/2011 L[facility] HEMATOLOGY Segs 80.6 45.0 - 75.0 09/07/2011 [facility] HEMATOLOGY Monocytes 9.2 2.0 - 12.0 09/07/2011 [facility] HEMATOLOGY Basophils 0.3 0.0 - 1.0 09/07/2011 [facility] HEMATOLOGY Eosinophils 0.4 0.0 - 4.0 09/07/2011 [facility] HEMATOLOGY Platelet 240 133 - 450 09/07/2011 [facility] HEMATOLOGY MPV 8.1 7.4 - 10.4 09/07/2011 Normal [facility] HEMATOLOGY MCV 91.9 80.0 - 94.0 09/07/2011 [facility] HEMATOLOGY MCH 32.3 27.0 - 31.0 09/07/2011 [facility] HEMATOLOGY MCHC 35.2 32.0 - 36.0 09/07/2011 Normal [facility] HEMATOLOGY RDW 12.7 11.5 - 14.5 09/07/2011 Normal [facility] HEMATOLOGY Hgb 15.1 14.0 - 18.0 09/07/2011 [facility] HEMATOLOGY Hct 42.9 42.0 - 54.0 09/07/2011 [facility] HEMATOLOGY WBC 10.1 3.7 - 10.4 09/07/2011 Normal [facility] HEMATOLOGY RBC 4.67 4.70 - 6.10 09/07/2011 LOW [facility] CHEMISTRY AGAP 15.2 10.0 - 20.0 09/06/2011 [facility] CHEMISTRY B/C Ratio 15 6 - 25 09/06/2011 Normal [facility] CHEMISTRY A/G Ratio 1.1 0.7 - 1.6 09/06/2011 [facility] CHEMISTRY Globulin 3.6 2.0 - 4.0 09/06/2011 Normal [facility] CHEMISTRY Calcium Lvl 9.6 8.5 - 10.5 09/06/2011 [facility] CHEMISTRY Albumin Lvl 3.8 3.5 - 5.0 09/06/2011 [facility] CHEMISTRY Chloride Lvl 102 95 - 109 09/06/2011 [facility] CHEMISTRY CO2 25 24 - 32 09/06/2011 [facility] CHEMISTRY Glucose Lvl 113 70 - 99 09/06/2011 [place] <sup>1</sup>Interpretive Data: Adult reference range values reflect the clinical guidelines of the [employer]. [facility] CHEMISTRY BUN 25 7 - 22 09/06/2011 [facility] CHEMISTRY Creatinine Lvl 1.7 0.5 - 1.4 09/06/2011 [facility] CHEMISTRY Sodium Lvl 138 135 - 145 09/06/2011 [facility] CHEMISTRY Potassium Lvl 4.2 3.5 - 5.1 09/06/2011 [facility] CHEMISTRY ALT 30 0 - 65 09/06/2011 [facility] CHEMISTRY Bili Total 0.5 0.2 - 1.3 09/06/2011 [facility] CHEMISTRY Alk Phos 67 39 - 136 09/06/2011 [facility] CHEMISTRY AST 12 0 - 37 09/06/2011 [facility] CHEMISTRY Total Protein 7.4 6.4 - 8.4 09/06/2011 [facility] CHEMISTRY Lipase Lvl 184 73 - 393 09/06/2011 [facility] HEMATOLOGY Bands 4.0 0.0 - 11.0 09/06/2011 [facility] HEMATOLOGY Segs 82.0 45.0 - 75.0 09/06/2011 [facility] HEMATOLOGY Monocytes 5.0 2.0 - 12.0 09/06/2011 [facility] HEMATOLOGY Lymphocytes 9.0 20.0 - 40.0 09/06/2011 LOW [facility] HEMATOLOGY Segs-Bands # 12.7 1.5 - 8.1 09/06/2011 [facility] HEMATOLOGY Monocytes # 0.5 0.0 - 0.8 09/06/2011 [facility] HEMATOLOGY Basophils 0.0 0.0 - 1.0 09/06/2011 [facility] HEMATOLOGY Eosinophils 0.0 0.0 - 4.0 09/06/2011 [facility] HEMATOLOGY Lymphocytes # 1.2 1.0 - 5.5 09/06/2011 [facility] HEMATOLOGY Eosinophils # 0.0 0.0 - 0.5 09/06/2011 [facility] HEMATOLOGY Basophils # 0.0 0.0 - 0.2 09/06/2011 Normal [facility] HEMATOLOGY RDW 13.0 11.5 - 14.5 09/06/2011 [facility] HEMATOLOGY Platelet 260 133 - 450 09/06/2011 Normal [facility] HEMATOLOGY MPV 7.7 7.4 - 10.4 09/06/2011 Normal [facility] HEMATOLOGY MCHC 35.1 32.0 - 36.0 09/06/2011 Normal [facility] HEMATOLOGY Hct 47.0 42.0 - 54.0 09/06/2011 Normal [facility] HEMATOLOGY MCV 92.8 80.0 - 94.0 09/06/2011 Normal [facility] HEMATOLOGY MCH 32.6 27.0 - 31.0 09/06/2011 [facility] HEMATOLOGY Hgb 16.5 14.0 - 18.0 09/06/2011 Normal [facility] HEMATOLOGY RBC 5.07 4.70 - 6.10 09/06/2011 Normal [facility] HEMATOLOGY WBC 14.4 3.7 - 10.4 09/06/2011 [facility] URINALYSIS UA WBC 79 0 - 5 09/06/2011 [facility] URINALYSIS UA RBC 4 0 - 2 09/06/2011 [facility] URINALYSIS UA Bacteria Few /HPF *NA* (09/06/2011 05:30:00) None Seen 09/06/2011 [facility] URINALYSIS UA Leuk Est Large *ABN* (09/06/2011 05:30:00) Negative 09/06/2011 [facility] URINALYSIS UA Color Ltyellow 09/06/2011 [facility]INALYS[facility] UA Urobilinogen 0.1 - 1.0 09/06/2011 [facility] URINALYSIS UA Sq Epi None Seen 09/06/2011 [facility] URINALYSIS UA Bili Negative *NA* (09/06/2011 05:30:00) Negative 09/06/2011 [facility] URINALYSIS UA Blood Moderate *ABN* (09/06/2011 05:30:00) Negative 09/06/2011 [facility] URINALYSIS UA Nitrite Negative (09/06/2011 05:30:00) Negative 09/06/2011 [facility] URINALYSIS UA Glucose Negative mg/dL *NA* (09/06/2011 05:30:00) Negative 09/06/2011 [facility] URINALYSIS UA Ketones Negative mg/dL *NA* (09/06/2011 05:30:00) Negative 09/06/2011 [facility] URINALYSIS UA Spec Grav 1.006 <=1.030 09/06/2011 [facility] URINALYSIS UA pH 5.0 5.0 - 8.0 09/06/2011 [facility] URINALYSIS UA Protein Negative mg/dL (09/06/2011 05:30:00) Negative 09/06/2011 Normal [facility] URINALYSIS UA Turbidity Slight *ABN* (09/06/2011 05:30:00) Clear 09/06/2011 ABN [facility] Pathology Reports No Data Provided for This Section Diagnostic Reports No Data Provided for This Section Consultation Notes No Data Provided for This Section Discharge Summaries No Data Provided for This Section History and Physicals No Data Provided for This Section Vital Signs Vital Sign Value Date Comments Source Temperature Oral (F) 98.4 F 09/07/2011 [facility] Heart Rate 118 09/07/2011 [facility] Respitory Rate 20 09/07/2011 [facility] Diastolic (mm Hg) 87 09/07/2011 [facility] Systolic (mm Hg) 175 09/07/2011 [facility] Heart Rate 84 09/07/2011 [facility] Diastolic (mm Hg) 81 09/07/2011 [facility] Systolic (mm Hg) 152 09/07/2011 [facility] Diastolic (mm Hg) 81 09/07/2011 [facility] Respitory Rate 18 09/07/2011 [facility] Systolic (mm Hg) 137 09/07/2011 [facility] Temperature Oral (F) 98.2 F 09/07/2011 [facility] Heart Rate 82 09/07/2011 [facility] Temperature Oral (F) 98.2 F 09/07/2011 [facility] Respitory Rate 18 09/07/2011 [facility] Weight 104.545 09/07/2011 [facility] Height 193.04 cm 09/07/2011 [facility] Weight 104.545 09/06/2011 [facility] Height 193.04 cm 09/06/2011 [facility] Encounters Location Location Details Encounter Type Encounter Number Reason For Visit Attending Provider ADM Date DC Date Status Source [facility] Outpatient [id number] L RENAL STONE MLAINDA ARAGON 08/31/2011 Active [facility] Inpatient [id number] ADNAN FARZAD 09/06/2011 09/07/2011 Discharged [facility] Outpatient [id number] UNK MALINDA ARAGON Active [facility] Procedures No Data Provided for This Section Assessment and Plan No Data Provided for This Section Plan of Care No Data Provided for This Section Social History No Data Provided for This Section Family History No Data Provided for This Section Advance Directives No Data Provided for This Section Functional Status No Data Provided for This Section
[2018-11-29 16:35] LABS: BASOPHILS % 0.3 % (0.0-1.0); EOSINOPHILS % 0.3 % (0.0-6.0); HEMATOCRIT 50.8 % (38.2-49.6); HEMOGLOBIN 16.6 g/dL (14.0-18.0); LYMPHOCYTES # (AUTO) 2.2 (1.0-3.2); LYMPHOCYTES % 15.2 % (18.0-39.1); MEAN CORPUSCULAR HEMOGLOBIN 30.6 pg (28-32); MEAN CORPUSCULAR HGB CONC 32.7 g/dL (31-35); MEAN CORPUSCULAR VOLUME 93.6 fL (81-99); MONOCYTES # (AUTO) 0.8 (0.2-0.8); MONOCYTES % 5.6 % (4.4-11.3); NEUTROPHILS # (AUTO) 11.3 (2.1-6.9); NEUTROPHILS % 77.5 % (38.7-80.0); PLATELET COUNT 213 x10e3/uL (140-360); RED BLOOD COUNT 5.43 x10e6/uL (4.3-5.7); RED CELL DISTRIBUTION WIDTH 16.3 % (11.7-14.4)
[2018-11-29 16:40] LABS: INR 1.3; PROTHROMBIN TIME 16.8 seconds (11.9-14.5)
--- NOTE | 2018-11-29 16:40 | Diagnostic Imaging Report ---
EXAMINATION: Head CT HISTORY: Right-sided weakness for the last hour, evaluate for acute stroke COMPARISON: Brain MRI 06/26/2018 TECHNIQUE: Multidetector axial images were obtained without contrast from the foramen magnum to the vertex . The images were reconstructed using brain and bone algorithms. Thin section brain images were reformatted into coronal and sagittal planes. Image quality: Motion/streaking artifact limits the evaluation of the skull base and posterior cranial fossa. Dose modulation, iterative reconstruction, and/or weight based adjustment of the mA/kV was utilized to reduce the radiation dose to as low as reasonably achievable. FINDINGS: Parenchyma: 1. 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 2. Mild chronic microvascular changes, better visualized on prior MRI. 3. No mass or hemorrhage. No CT evidence of acute territorial vascular insult. Extra-axial spaces:No abnormal density. No extra-axial fluid collections Brain volume: Normal for age. Ventricles: No hydrocephalus or displacement. Arteries: No density suggestive of thrombus. Dural sinuses: No abnormal density. Extra-axial spaces: No abnormal density. Foramen magnum: No mass, Chiari malformation, or basilar invagination. Sella: No obvious mass. Paranasal/mastoid sinuses: Imaged portions unremarkable. Skull/Scalp: No lytic or blastic lesions. No fractures. IMPRESSION: 1. No acute intracranial hemorrhage or CT evidence of large territorial cortical infarct. 2. Mild chronic microvascular ischemic changes. 3. Small chronic cortical infarcts as detailed above. Signed by: Dr. Margarette Dial M.D. on 11/29/2018 4:36 PM
[2018-11-29 16:41] LABS: PARTIAL THROMBOPLASTIN TIME 30.5 seconds (23.8-35.5)
[2018-11-29 16:50] LABS: ALBUMIN 2.9 g/dL (3.5-5.0); CALCIUM 9.2 mg/dL (8.4-10.2); CREATININE, SERUM 1.7 mg/dL (0.72-1.25)
[2018-11-29] MEDS ORDERED: ALTEPLASE 50 MG/VIAL (29 MILLION IU) IV ONE (16:50)
[2018-11-29 16:57] LABS: CREATINE KINASE MB 2.3 ng/mL (0-5.0)
--- NOTE | 2018-11-29 17:00 | NUR ---
tPA bolus started at this time. Pt aphasic and no movement noted to right side.
[2018-11-29] MEDS ORDERED: NICARDIPINE 20MG/200ML PREMIX 200 ML ONE (17:08)
--- NOTE | 2018-11-29 17:30 | NUR ---
Dr. Alicea in room for eval.
--- NOTE | 2018-11-29 17:48 | NUR ---
Pt noted to have increase tone in RLE and tremors now noted to RUE.
--- NOTE | 2018-11-29 18:15 | NUR ---
tPA infusion complete. Pt following commands and attempting to verbalize answers. Pt mild movements of right thumb noted when asked to calculating machine mechanic. pt able to flex knee on command.
--- NOTE | 2018-11-29 18:31 | NUR ---
Pt now has 1+ strength to right upper and lower ext. Pt still aphasic, but able to follow commands.
--- NOTE | 2018-11-29 18:50 | NUR ---
Skin tear noted to right upper arm, left forearm and right forearm. Dry dressings applied.
[2018-11-29] MEDS: PANTOPRAZOLE 40 MG 10ML VIAL IV SCH (18:53)
[2018-11-29] MEDS ORDERED: IRON18 MG PO (18:59)
[2018-11-29] MEDS ORDERED: GABAPENTIN300 MG PO (18:59)
--- NOTE | 2018-11-29 19:30 | NUR ---
PT AWAKE AND FOLLOWS SIMPLE COMMANDS. PT CONTINUES C SEVERE WEAKNESS TO R ARM AND LEG. PT REMAINS APHASIC, PT NOT ABLE TO ANSWER QUESTIONS APPROPRIATELY. PT ASKED ORIENTATION QUESTIONS, RESPONSE IS "NO, NO."
--- OUTSIDE RECORDS SUMMARY | 2018-11-29 20:16 | XMS REPORT | Continuity of Care Document ---
Author Author [employer] Address Unknown Phone Unavailable Care Team Providers Care Manager Data Center Name Role Phone [employer] Unavailable Unavailable Problems Problem Status Onset Date Classification Date Reported Comments Source UNK Active 10/20/2011 [facility] FLANK PAIN Active 09/06/2011 [facility] KIDNEY STONE Active 09/06/2011 [facility] L RENAL STONE Active 08/25/2011 [facility] Acid reflux Active Problem 09/09/2011 [facility] COPD Active Problem 09/09/2011 [facility] Enlarged prostate Active Problem 09/09/2011 [facility] HT - Hypertension Active Problem 09/09/2011 [facility] Kidney stone Active Problem 09/09/2011 [facility] CALCULUS OF KIDNEY Active [facility] Medications Medication Details Route Status Patient Instructions Ordering Provider Order Date Source ceftriaxone 1 gm, Route: IVPB, Drug form: PDR/INJ, [id number], Start date: 09/07/11 21:00:00, Duration: 30 day, Stop date: 10/06/11 21:00:00 IVPB No Longer Active Farzad 09/08/2011 [facility] lidocaine 1% 0.5 mL, Route: INTRADERM, ONCALL, Start date: 09/07/11 9:00:00, Duration: 1 doses or times INTRADERM No Longer Active Juan Antonio 09/07/2011 [facility] Lactated Ringers Injection IV 1000 mL 1,000 mL, Rate: 25 ml/hr, Infuse over: 40 hr, Route: IV, Dosing Weight 104.545 kg, Total Volume: 1,000, Start date: 09/07/11 8:16:00, Duration: 30 day, Stop date: 10/07/11 8:15:00 IV No Longer Active Juan Antonio 09/07/2011 [facility] gentamicin 156.8175 mg, 3.92 mL, Route: IVPB, Drug form: INJ, [id number], Start date: 09/07/11 6:00:00, Duration: 30 day, Stop date: 10/06/11 22:00:00, Patient's Own Meds: IVPB No Longer Active Nriagu 09/07/2011 [facility] Phenergan 12.5 mg, 0.5 mL, Route: IM, Drug form: INJ, Q2H, PRN as needed for nausea/vomiting, Start date: 09/06/11 21:12:00, Duration: 30 day, Stop date: 10/06/11 21:11:00 IM No Longer Active Farzad 09/07/2011 [facility] Demerol HCl 50 mg, 1 mL, Route: IV, Drug form: INJ, Q2H, PRN as needed for pain, Start date: 09/06/11 21:12:00, Duration: 4 day, Stop date: 09/10/11 21:11:00 IV No Longer Active Farzad 09/07/2011 [facility] gentamicin 120 mg, 3 mL, Route: IV, Drug form: INJ, ONCE, Priority: NOW, Start date: 09/06/11 21:12:00, Stop date: 09/06/11 21:12:00 IV No Longer Active Farzad 09/07/2011 [facility] NS 1000 mL 1,000 mL 1,000 mL, Rate: 75 ml/hr, Infuse over: 13.3 hr, Route: IV, Dosing Weight 104.545 kg, Total Volume: 1,000, Start date: 09/06/11 21:12:00, Duration: 30 day, Stop date: 10/06/11 21:11:00 IV No Longer Active Farzad 09/07/2011 [facility] Zofran 4 mg, 2 mL, Route: IVP, Drug form: INJ, Q8H, PRN as needed for nausea/vomiting, Priority: STAT, Start date: 09/06/11 21:12:00, Duration: 30 day, Stop date: 10/06/11 21:11:00 IVP No Longer Active Farzad 09/07/2011 [facility] morphine Sulfate 4 mg, 2 mL, Route: IVP, Drug form: INJ, Q4H, PRN as needed for pain, Priority: STAT, Start date: 09/06/11 21:12:00, Duration: 30 day, Stop date: 10/06/11 21:11:00 IVP No Longer Active Farzad 09/07/2011 [facility] Protonix 40 mg, 1 tab, Route: PO, Drug form: ECTAB, Before Dinner, Start date: 09/06/11 21:00:00, Duration: 30 day, Stop date: 10/06/11 16:30:00 PO No Longer Active [facility] 09/07/2011 [facility] Zofran 4 mg, 2 mL, Route: IVP, Drug form: INJ, Q4H, PRN Nausea, Start date: 09/06/11 20:21:00, Duration: 30 day, Stop date: 10/06/11 20:20:00 IVP No Longer Active [facility] 09/07/2011 [facility] normal saline 0.9% IV 1,000 mL 1,000 mL, Rate: 100 ml/hr, Infuse over: 10 hr, Route: IV, Dosing Weight 104.545 kg, Total Volume: 1,000, Start date: 09/06/11 20:21:00, Duration: 30 day, Stop date: 10/06/11 20:20:00 IV No Longer Active [facility] 09/07/2011 [facility] morphine Sulfate 2 mg, 1 mL, Route: IVP, Drug form: INJ, Q3H, PRN Pain, Start date: 09/06/11 20:21:00, Duration: 30 day, Stop date: 10/06/11 20:20:00 IVP No Longer Active [facility] 09/07/2011 [facility] Rocephin 1 g/ NS (NaCl 0.9%) 50 mL IV solution 1 gm, Route: IVPB, Drug form: PDR/INJ, [id number], Priority: STAT, Start date: 09/06/11 19:25:00, Duration: 30 day, Stop date: 10/06/11 18:25:00 IVPB No Longer Active [employer] 09/07/2011 [facility] Sodium Chloride 0.9% (Bolus) IV 1000 mL 1,000 mL, Rate: 1,000 ml/hr, Infuse over: 1 hr, Route: IV, Dosing Weight 104.545 kg, Total Volume: 1,000, Bolus Dose, Priority: STAT, Start date: 09/06/11 18:55:00, Duration: 1 doses or times, Stop date: 09/06/11 19:54:00 IV No Longer Active Nriagu 09/06/2011 [facility] Zofran 4 mg, 2 mL, Route: IVP, Drug form: INJ, ONCE, Priority: STAT, Start date: 09/06/11 18:43:00, Stop date: 09/06/11 18:43:00 IVP No Longer Active [facility] 09/06/2011 [facility] morphine Sulfate 4 mg, 2 mL, Route: IVP, Drug form: INJ, ONCE, Priority: STAT, Start date: 09/06/11 18:43:00, Stop date: 09/06/11 18:43:00 IVP No Longer Active [facility] 09/06/2011 [facility] morphine Sulfate 4 mg, 2 mL, Route: IVP, Drug form: INJ, ONCE, Priority: STAT, Start date: 09/06/11 15:48:00, Stop date: 09/06/11 15:48:00 IVP No Longer Active [facility] 09/06/2011 [facility] ondansetron 4 mg, 2 mL, Route: IVP, Drug form: INJ, ONCE, Priority: STAT, Start date: 09/06/11 15:48:00, Stop date: 09/06/11 15:48:00 IVP No Longer Active [facility] 09/06/2011 [facility] Saline Flush 0.9% 5 ml, Route: IVP, Drug Form: INJ, PRN, PRN Line Flush, Start date: 09/06/11 15:48:00, Duration: 24 hr, Stop date: 09/07/11 15:47:00 IVP No Longer Active [facility] 09/06/2011 [facility] Allergies, Adverse Reactions, Alerts Substance Category Reaction Severity Reaction type Status Date Reported Comments Source codeine drug allergy Allergy Active [facility] Tape drug allergy Allergy Active [facility] Immunizations No Data Provided for This Section Results Order Name Results Value Reference Range Date Interpretation Comments Source HEMATOLOGY Plt Morph Normal (09/07/2011 05:54:00) 09/07/2011 Normal [facility] HEMATOLOGY RBC Morph Normal (09/07/2011 05:54:00) 09/07/2011 Normal [facility] HEMATOLOGY Basophils # 0.0 0.0 - 0.2 09/07/2011 Normal [facility] HEMATOLOGY Segs-Bands # 7.9 1.5 - 8.1 09/07/2011 Normal [facility] HEMATOLOGY Monocytes # 0.9 0.0 - 0.8 [...] MPV 8.1 7.4 - 10.4 09/07/2011 Normal [facility] HEMATOLOGY MCV 91.9 80.0 - 94.0 09/07/2011 Normal [facility] HEMATOLOGY MCH 32.3 27.0 - 31.0 09/07/2011 [facility] HEMATOLOGY MCHC 35.2 32.0 - 36.0 09/07/2011 Normal [facility] HEMATOLOGY RDW 12.7 11.5 - 14.5 09/07/2011 Normal [facility] HEMATOLOGY Hgb 15.1 14.0 - 18.0 09/07/2011 Normal [facility] HEMATOLOGY Hct 42.9 42.0 - 54.0 09/07/2011 Normal [facility] HEMATOLOGY WBC 10.1 3.7 - 10.4 09/07/2011 Normal [facility] HEMATOLOGY RBC 4.67 4.70 - 6.10 09/07/2011 LOW [facility] CHEMISTRY AGAP 15.2 10.0 - 20.0 09/06/2011 Normal [facility] CHEMISTRY B/C Ratio 15 6 - 25 09/06/2011 Normal [facility] CHEMISTRY A/G Ratio 1.1 0.7 - 1.6 09/06/2011 Normal [facility] CHEMISTRY Globulin 3.6 2.0 - 4.0 09/06/2011 Normal [facility] CHEMISTRY Calcium Lvl 9.6 8.5 - 10.5 09/06/2011 Normal [facility] CHEMISTRY Albumin Lvl 3.8 3.5 - 5.0 09/06/2011 Normal [facility] CHEMISTRY Chloride Lvl 102 95 - 109 09/06/2011 Normal [facility] CHEMISTRY CO2 25 24 - 32 09/06/2011 Normal [facility] CHEMISTRY Glucose Lvl 113 70 - 99 09/06/2011 [facility] <sup>1</sup>Interpretive Data: Adult reference range values reflect the clinical guidelines of the [employer]. [facility] CHEMISTRY BUN 25 7 [...] HEMATOLOGY Segs 82.0 45.0 - 75.0 09/06/2011 [facility] HEMATOLOGY Monocytes 5.0 2.0 - 12.0 09/06/2011 Normal [facility] HEMATOLOGY Lymphocytes 9.0 20.0 - 40.0 09/06/2011 LOW [facility] HEMATOLOGY Segs-Bands # 12.7 1.5 - 8.1 09/06/2011 [facility] HEMATOLOGY Monocytes # 0.5 0.0 - 0.8 09/06/2011 Normal [facility] HEMATOLOGY Basophils 0.0 0.0 - 1.0 09/06/2011 Normal [facility] HEMATOLOGY Eosinophils 0.0 0.0 - 4.0 09/06/2011 Normal [facility] HEMATOLOGY Lymphocytes # 1.2 1.0 - 5.5 09/06/2011 Normal [facility] HEMATOLOGY Eosinophils # 0.0 0.0 - 0.5 09/06/2011 Normal [facility] HEMATOLOGY Basophils # 0.0 0.0 - 0.2 09/06/2011 Normal [facility] HEMATOLOGY RDW 13.0 11.5 - 14.5 09/06/2011 Normal [facility] HEMATOLOGY Platelet 260 133 - 450 09/06/2011 Normal [facility] HEMATOLOGY MPV 7.7 7.4 - 10.4 09/06/2011 Normal [facility] HEMATOLOGY MCHC 35.1 32.0 - 36.0 09/06/2011 Normal [facility] HEMATOLOGY Hct 47.0 42.0 - 54.0 09/06/2011 Normal [facility] HEMATOLOGY MCV 92.8 80.0 - 94.0 09/06/2011 Normal [facility] HEMATOLOGY MCH 32.6 27.0 - 31.0 09/06/2011 HI [facility] HEMATOLOGY Hgb 16.5 14.0 - 18.0 09/06/2011 Normal [facility] HEMATOLOGY RBC 5.07 4.70 - 6.10 09/06/2011 Normal [facility] HEMATOLOGY WBC 14.4 3.7 - 10.4 09/06/2011 [facility] URINALYSIS UA WBC 79 0 - 5 09/06/2011 [facility] URINALYSIS UA RBC 4 0 - 2 09/06/2011 [facility] URINALYSIS UA Bacteria Few /HPF *NA* (09/06/2011 05:30:00) None Seen 09/06/2011 [facility] URINALYSIS UA Leuk Est Large *ABN* (09/06/2011 05:30:00) Negative 09/06/2011 ABN [facility] URINALYSIS UA Color Ltyellow 09/06/2011 NA [facility]INALYS[facility] UA Urobilinogen 0.1 - 1.0 09/06/2011 NA [facility]INALYSIS UA Sq Epi None Seen 09/06/2011 [facility] UA Bili Negative *NA* (09/06/2011 05:30:00) Negative 09/06/2011 [facility] UA Blood Moderate *ABN* (09/06/2011 05:30:00) Negative 09/06/2011 [facility] URINALYSIS UA Nitrite Negative (09/06/2011 05:30:00) Negative 09/06/2011 Normal [facility] URINALYSIS UA Glucose Negative mg/dL *NA* (09/06/2011 05:30:00) Negative 09/06/2011 [facility] URIN[facility]YSIS UA Ketones Negative mg/dL *NA* (09/06/2011 05:30:00) Negative 09/06/2011 [facility]YS[facility] UA Spec Grav 1.006 <=1.030 09/06/2011 Normal [facility] URINALYSIS UA pH 5.0 5.0 - 8.0 09/06/2011 Normal [facility] URINALYSIS UA Protein Negative mg/dL (09/06/2011 05:30:00) Negative 09/06/2011 Normal [facility] URINALYSIS UA Turbidity Slight *ABN* (09/06/2011 05:30:00) Clear 09/06/2011 ABN [facility] Pathology Reports No Data Provided for This Section Diagnostic Reports No Data Provided for This Section Consultation Notes No Data Provided for This Section Discharge Summaries No Data Provided for This Section History and Physicals No Data Provided for This Section Vital Signs Vital Sign Value Date Comments Source Temperature Oral (F) 98.4 F 09/07/2011 [facility] Heart Rate 118 09/07/2011 [facility] Respitory Rate 20 09/07/2011 [facility] Diastolic (mm Hg) 87 09/07/2011 [facility] Systolic (mm Hg) 175 09/07/2011 [facility] Heart Rate 84 09/07/2011 [facility] Diastolic (mm Hg) 81 09/07/2011 [facility] Systolic (mm Hg) 152 09/07/2011 [facility] Diastolic (mm Hg) 81 09/07/2011 [facility] Respitory Rate 18 09/07/2011 [facility] Systolic (mm Hg) 137 09/07/2011 [facility] Temperature Oral (F) 98.2 F 09/07/2011 [facility] Heart Rate 82 09/07/2011 [facility] Temperature Oral (F) 98.2 F 09/07/2011 [facility] Respitory Rate 18 09/07/2011 [facility] Weight 104.545 09/07/2011 [facility] Height 193.04 cm 09/07/2011 [facility] Weight 104.545 09/06/2011 [facility] Height 193.04 cm 09/06/2011 [facility] Encounters Location Location Details Encounter Type Encounter Number Reason For Visit Attending Provider ADM Date DC Date Status Source [facility] Outpatient [id number] L RENAL STONE MALINDA ARAGON 08/31/2011 Active [facility] Inpatient [id number] ADNAN FARZAD 09/06/2011 09/07/2011 Discharged [facility] Outpatient [id number] UNK MALINDA ARAGON Active [facility] Procedures No Data Provided for This Section [...]
--- OUTSIDE RECORDS SUMMARY | 2018-11-29 20:16 | XMS REPORT | Clinical Summary ---
Author Author [employer] [facility] [employer] Address Unknown Phone Unavailable Care Team Providers Care Computer Specialist Name Role Phone Dave Hong MD PCP [...] Advance Directives For more information, please contact: [phone] Patient Farm Service Adviser Explanation Type Date Recorded Advance Directives, Living Will and Medical Power of Time Study Technician Advance Directives, 06/25/2017 9:11 AM Living Will and Medical Power of Time Study Technician Advance Directives, 06/25/2017 9:11 AM Living Will and Medical Power of Time Study Technician
[2018-11-29 21:00] VITALS: BP 182/89
[2018-11-29 21:15] VITALS: BP 182/89
[2018-11-29 22:00] VITALS: BP 171/79
[2018-11-29 23:00] VITALS: BP 175/80
[2018-11-29 23:59] VITALS: BP 176/85
[2018-11-30] VITALS (25 sets, daily range): BP systolic 137–197; BP diastolic 63–113
--- NOTE | 2018-11-30 01:28 | Consultation ---
DATE OF CONSULTATION: 11/29/2018 Neurology Consult Note HISTORY OF PRESENT ILLNESS: Mr. Casiano is a 73-year-old right-hand dominant man with an extensive past medical history, including hypertension, hyperlipidemia, coronary artery disease with a prior myocardial infarction, peripheral vascular disease, and a prior stroke with unknown residual deficits admitted to [facility] on November 29, 2018, as an inpatient for a probable stroke. On the afternoon of admission, the patient was at home, in his usual state of health, when he fell to the ground at approximately 1530. The patient was immediately noted by family members to have a mixed aphasia, left gaze preference, and dense right hemiparesis. Emergency Medical Services was notified, and the patient was transported to the emergency center at [facility] for further evaluation of his symptoms. Upon arrival in the emergency center, the patient was afebrile with a blood pressure of 158/90 mmHg and a pulse of 71 beats per minute. Documentation of the patient's neurological examination by the emergency center physician is unavailable for review at this time. However, on my neurological examination in the emergency center, the patient was found to have a mixed aphasia with forced leftward gaze and dense right hemiparesis, with probable right hemisensory loss. Mr. Casiano takes Coumadin due to a prior history of multiple blood clots. Last week, the dose of Coumadin was decreased when the patient was found to have an INR of 3.0. In the emergency center, the patient's INR is 1.3. A CT of the brain without contrast was performed. This study does not reveal evidence of recent large territorial ischemia or hemorrhage. Given the above information, treatment with intravenous thrombolytics was recommended. After discussing the potential risks and benefits of the medication with family members, Mr. Casiano received intravenous tPA 9 mg bolus dose at 1700. This was followed immediately by an infusion of 81 mg intravenously over 1 hour. Following infusion of IV tPA, the patient will be admitted to the intensive care unit at [facility] for further evaluation and treatment of his symptoms. REVIEW OF SYSTEMS: Unable to obtain secondary to the patient being aphasic. PAST MEDICAL HISTORY: Hypertension, hyperlipidemia, coronary artery disease with a prior myocardial infarction, chronic obstructive pulmonary disease, CKD stage unknown, lung cancer status post resection, prior deep venous thrombosis in the left leg, prior pulmonary embolus in the right lung, essential tremor, peripheral vascular disease, osteomyelitis. PAST SURGICAL HISTORY: Resection of melanoma with subsequent infection, surgical procedures to remove blebs from the lungs, cholecystectomy, cervical spine fusion, right meniscus repair, cardiac catheterization with stent placement, multiple angiographies with stent placement, femoral-popliteal bypass of the right leg, amputation of the right great toe, amputation of the right second toe, I and D x2, right upper lung lobectomy, bilateral cataract removal. PAST HOSPITALIZATIONS: Surgeries/procedures as listed, pneumonia, stroke in June 2018, deep venous thrombosis, ulcer of the right great toe, cellulitis, peripheral vascular disease. FAMILY MEDICAL HISTORY: Mr. Casiano's parents are . The patient's father had a stroke as well as prostate cancer. His mother had coronary artery disease. Mr. Casiano had 3 siblings, 1 brother and 2 sisters. The brother is alive. He has a history of colon and renal cancer. Within the past year, he was diagnosed with a glioblastoma multiforme. One sister is alive and has diabetes mellitus. The 2nd sister is from an unknown cancer. The patient has 2 children, a son and a daughter, both of whom are living. The patient's son has hypertension, hyperlipidemia, diabetes mellitus, and bipolar disorder. Mr. Casiano's daughter has lupus. SOCIAL HISTORY: Mr. Casiano is . He is retired. There is a prior history of tobacco use reported, but the patient quit smoking cigarettes in 1999. Mr. Casiano quit drinking alcohol approximately 10 years ago. There is no reported current or prior recreational drug use. HOME MEDICATIONS: Gabadon 300 mg by mouth 3 times daily, allopurinol 300 mg by mouth daily, amiodarone 200 mg by mouth daily, aspirin 81 mg by mouth daily, atenolol 50 mg by mouth twice daily, atorvastatin 20 mg by mouth at bedtime daily, citalopram 20 mg by mouth daily, Colace 100 mg by mouth as needed for constipation, Lasix 60 mg by mouth daily, [place] 10/325 mg one tablet by mouth every 6 hours as needed for pain, Xopenex 2 puffs inhaled as needed for shortness of breath, nitroglycerin 0.4 mg sublingually every 5 minutes as needed for chest pain, omeprazole 20 mg by mouth twice daily, MiraLAX by mouth as needed for constipation, potassium citrate 20 mEq by mouth twice daily, primidone 50 mg by mouth daily, warfarin 3 mg by mouth daily, Anoro. HOSPITAL MEDICATIONS: Hydralazine, Protonix. ALLERGIES: CODEINE. NO KNOWN FOOD ALLERGIES. NO KNOWN ALLERGIES TO LATEX. THE PATIENT DOES HAVE A DOCUMENTED ALLERGY TO TAPE. NO KNOWN ALLERGIES TO IODINE OR OTHER CONTRAST MATERIALS. PHYSICAL EXAMINATION: VITAL SIGNS: Height 76 inches, weight 285 pounds, BMI 34.7 kg/m2, blood pressure 172/82 mmHg, pulse 70 beats per minute, respiratory rate 15 breaths per minute, and oxygen saturation 100% on room air. GENERAL: The patient is awake and alert, does not appear distressed. Obese. HEENT: Normocephalic, atraumatic. Pupils are surgical. Moist mucous membranes. NECK: Supple. No appreciable thyromegaly. No appreciable carotid bruits. CARDIOVASCULAR: S1, S2, regular rate and rhythm. No murmurs, rubs, or gallops. RESPIRATORY: Clear to auscultation bilaterally. No wheezes, rhonchi, or rales. EXTREMITIES: The skin is warm and dry. No clubbing or cyanosis. A 2+ pretibial pitting edema, right greater than left, is appreciated. The posterior tibial and dorsalis pedis pulses are trace to 1+ and symmetric. SKIN: No rashes or lesions. NEUROLOGIC: MEMORY/ATTENTION: The patient is awake and alert, mixed aphasia. CRANIAL NERVES: Cranial nerve I - not tested. Cranial nerve II, III, IV, and - the pupils are surgical. Forced gaze to the left. No nystagmus. Cranial nerve V - sensation to light touch is grossly intact in the bilateral V1 through V3 distributions. Strength in the temporalis and masseter muscles is within normal limits. Cranial nerve VII - the face is asymmetric on the right as are all facial movements. Mild right central facial weakness is appreciated. Cranial nerve VIII - hearing is intact to voice bilaterally. Cranial nerve IX, X - soft palate elevates equally and symmetrically. Cranial nerve XII - the tongue protrudes midline and moves symmetrically from [id number]. STRENGTH: Bulk is normal. Mr. Casiano is unable to participate in a formal assessment of strength. He is able to maintain the left arm against gravity for more than 10 seconds. He is able to maintain the left leg against gravity for more than 5 seconds. The right arm and leg are plegic. Tone is decreased in the right arm and right leg. DTRS: Deep tendon reflexes are 1+ and symmetric at the triceps and biceps. Deep tendon reflexes are trace and symmetric at the brachioradialis. Deep tendon reflexes are absent and symmetric at the patellas and Achilles. Plantar responses are flexor bilaterally. SENSATION: Mr. Casiano withdraws the left arm and left leg to peripheral noxious stimulation. There is no response of the right arm or right leg. CEREBELLAR: Unable to assess secondary to the patient having mixed aphasia. GAIT: Deferred. SPEECH: Unable to assess secondary to the patient having mixed aphasia. INVOLUNTARY MOVEMENTS: Moderate frequency, moderate amplitude, resting tremor is seen in the left hand. Pronator Drift: As per motor exam. LABORATORY DATA: A comprehensive metabolic panel is significant for a BUN of 30, creatinine of 1.70, estimated GFR 40, total protein of 5.9, and albumin of 2.9. Cardiac enzymes are negative x1. B-natriuretic peptide 113.0. CBC with differential and platelets reveals an elevated white blood cell count of 14.51 with a left shift with 77.5% neutrophils, 15.2% lymphocytes, 5.6% monocytes, 0.3% eosinophils, and 0.3% basophils. The hemoglobin and hematocrit are 16.6 and 50.8, respectively. The platelet count is 213. PT 16.8, INR 1.30, PTT 30.5. DIAGNOSTIC STUDIES: CT of the brain without contrast 11/29/2018: On my review, there is no evidence of recent large territorial ischemia, hemorrhage, mass, or mass effect. Chronic infarcts are seen in the left posterior insula and right superior cerebellum. There is mild diffuse cerebral atrophy with compensatory dilatation of the ventricles, appropriate for the patient's age. Their findings compatible with [id number] chronic small-vessel ischemic disease. ASSESSMENT AND PLAN: Mr. Casiano is a 73-year-old right-hand dominant man with multiple vascular risk factors, admitted to [facility] on November 29, 2018, with a probable ischemic stroke in the left middle cerebral artery distribution with cortical involvement. On neurological examination, the patient has a mixed aphasia, leftward forced gaze, dense right hemiplegia, and possible right leyda sensory loss. The patient's laboratory data and other diagnostic studies have been reviewed and are documented above. RECOMMENDATIONS: Are as follows: 1. A lipid panel and hemoglobin A1c will be ordered. 2. An echocardiogram will be ordered. 3. Bilateral carotid artery ultrasound with Doppler will be ordered. 4. AN MRI of the brain without contrast will be ordered. 5. The patient may not receive anti-platelet or anticoagulant medication for 24- hour status post tPA (approximately 1700 on November 30, 2018). 6. Allow permissive hypertension for 24 to 48 hours status post stroke. The patient's goal systolic blood pressure is 170 to 200 mmHg. His goal diastolic blood pressure is 70 to 100 mmHg. Monitor vital signs per unit protocol. The patient will be prescribed hydralazine 10 mg intravenously every 4 hours as needed for systolic blood pressure greater than 200 or diastolic blood pressure greater than 100. 7. The patient's goal total cholesterol is less than 200 with an LDL of less than 70. Follow up the results of the lipid panel. In the interim, treatment with the patient's home medication of atorvastatin 20 mg by mouth at bedtime daily may be resumed once the patient is cleared to take food, beverages, medication, etc., by mouth. 8. The patient's goal hemoglobin A1c is less than 7.0. Follow up the results of the hemoglobin A1c. Tight glycemic control is recommended while the patient is hospitalized. 9. Speech and Physical Therapy consultations will be ordered. 10. Gastrointestinal prophylaxis with Protonix 40 mg intravenously daily. Deep venous thrombosis prophylaxis with RENALDO hose and SCDs. 11. Defer treatment of the remaining medical comorbidities to the primary and other services following the patient. Thank you for this consultation. I should continue to follow the patient while he remains in the hospital. TIME SPENT: 70 minutes. Kaye Alicea MD CP/GERONIMO /[id number] LEONELA
[2018-11-30] MEDS ORDERED: ONDANSETRON HCL INJ 2MG/ML 2ML 2 MG/ML VIAL ONE (02:08)
[2018-11-30] MEDS ORDERED: ONDANSETRON HCL INJ 2MG/ML 2ML 2 MG/ML VIAL IV STA (02:52)
[2018-11-30] MEDS ORDERED: MICROFIBRILLER COLLAGEN HEMOSTAT 1 GM POWDER TP ONE (03:11)
[2018-11-30] MEDS ORDERED: [UNRECOGNIZED DRUG - OTHER] TP ONE (07:00)
[2018-11-30] MEDS: PANTOPRAZOLE 40 MG 10ML VIAL IV SCH ×2 (09:33→10:19)
--- NOTE | 2018-11-30 11:30 | NUR ---
ST Note: order for speech and language eval noted. per jennifer rn, pt not appropriate for intervention this date. spoke with pt's daughter re: role of CLINICAL NURSING INTERN. will f/u tomorrow 12/01/18 to complete eval as able. pt may also benefit from an evaluation of swallow safety. in the meantime, if level of alertness is decreased 3-4 days, pt may benefit from temporary alternative means of nutrition.
[2018-11-30] MEDS: ARTIFICIAL TEARS (OPTH) 15 ML BTL OP SCH ×3 (13:30→21:00)
[2018-11-30 18:34] LABS: BASOPHILS % 0.2 % (0.0-1.0); EOSINOPHILS % 0.1 % (0.0-6.0); HEMATOCRIT 46.2 % (38.2-49.6); HEMOGLOBIN 15.2 g/dL (14.0-18.0); LYMPHOCYTES # (AUTO) 1.6 (1.0-3.2); LYMPHOCYTES % 9.2 % (18.0-39.1); MEAN CORPUSCULAR HEMOGLOBIN 31.1 pg (28-32); MEAN CORPUSCULAR HGB CONC 32.9 g/dL (31-35); MEAN CORPUSCULAR VOLUME 94.7 fL (81-99); MONOCYTES # (AUTO) 1.3 (0.2-0.8); MONOCYTES % 7.6 % (4.4-11.3); NEUTROPHILS # (AUTO) 14.4 (2.1-6.9); NEUTROPHILS % 81.9 % (38.7-80.0); PLATELET COUNT 214 x10e3/uL (140-360); RED BLOOD COUNT 4.88 x10e6/uL (4.3-5.7); RED CELL DISTRIBUTION WIDTH 16.1 % (11.7-14.4)
[2018-11-30 18:43] LABS: INR 1.08; PROTHROMBIN TIME 14.5 seconds (11.9-14.5)
[2018-11-30 18:55] LABS: ALBUMIN 2.8 g/dL (3.5-5.0); ALBUMIN/GLOBULIN RATIO 0.9 (0.8-2.0); ANION GAP 13.7 mmol/L (8-16); CALCIUM 9.1 mg/dL (8.4-10.2); CHOL/HDL RATIO 2.9 (3.9-4.7); CREATININE, SERUM 1.37 mg/dL (0.72-1.25)
[2018-11-30 18:56] LABS: POTASSIUM 4.7 mmol/L (3.5-5.1)
--- NOTE | 2018-11-30 19:00 | NUR ---
Bedside report received from Ann Johnson RN. Pt received resting in bed with right sided weakness to arm and leg, speech is slurred and hard to understand, pt is following commands appropriately. Pts is at the bedside. Care plan reviewed.
[2018-11-30] MEDS: ONDANSETRON HCL INJ 2MG/ML 2ML 2 MG/ML VIAL IV PRN (21:40)
[2018-11-30] MEDS: EYE LUBRICANT OPTH OINT 3.5GM TUBE OP SCH (22:20)
[2018-12-01] VITALS (25 sets, daily range): BP systolic 109–182; BP diastolic 53–91
[2018-12-01] MEDS: ONDANSETRON HCL INJ 2MG/ML 2ML 2 MG/ML VIAL IV PRN (01:31)
--- NOTE | 2018-12-01 07:00 | NUR ---
Bedside report given to Ann Johnson RN.
[2018-12-01] MEDS: ARTIFICIAL TEARS (OPTH) 15 ML BTL OP SCH ×4 (09:00→22:00)
[2018-12-01] MEDS: PANTOPRAZOLE 40 MG 10ML VIAL IV SCH ×2 (09:00→18:39)
[2018-12-01] MEDS ORDERED: SODIUM CHLORIDE 0.9% 1000ML 1,000 ML ONE (11:45)
--- NOTE | 2018-12-01 14:23 | Diagnostic Imaging Report ---
Exam: Brain MRI without IV contrast History: Stroke, left MCA distribution, altered mental status Comparison studies: Head CT 11/29/2018, brain MRI 06/26/2018. Technique: Sagittal and axial T2 FS, axial DWI, axial T2*GRE, axial T1 FLAIR and axial coronal T2 FLAIR. Intravenous contrast: None Findings: Several pulse sequences are somewhat limited artifacts related to patient motion. In spite of limitations: Scalp: Incidental 2.1 cm circumscribed T2 hyperintense lesion in the left paramedian subcutaneous suboccipital scalp and subcentimeter nodules in the left suboccipital scalp may be epidermal inclusion cysts. Bone marrow: Normal in signal intensity. Brain sulci: Mildly prominent. Ventricles: Mild compensatory dilatation. No hydrocephalus. Extra axial spaces: No mass, no fluid collection. Previous subacute hemorrhage along the anterior left temporal convexity and left sylvian fissure is seen on the prior 06/26/2018 and brain MRI has resolved. Parenchyma: Acute ischemia in the left MCA territory with cortical-based restricted diffusion and T2 FLAIR hyperintensity along the left superior and middle frontal gyri, left precentral gyrus, left paracentral lobule and left superior parietal lobule. Larger cortical/subcortical infarct with restricted diffusion and T2 FLAIR hyperintensity in the posterior left temporal lobe, inferior left parietal lobe and left lateral occipital lobe in the distal left MCA territory which extends to the left MCA-RESTAURANT INSPECTOR cortical border zone. Focal 1.7 cm decreased T2/T2*GRE signal in the left lateral occipitotemporal region in the area of infarction indicative of acute hemorrhage. Punctate focus of decreased signal along the left precentral gyrus posteriorly and in the left inferior parietal lobule are likely microhemorrhages and are age-indeterminate. Chronic insult present in the posterior left insular cortex which was acute in 06/2018 with unchanged chronic insult along the left precentral gyrus and chronic lacunar infarct in the right cerebellum. Scattered T2 FLAIR hyperintense foci in the supratentorial white matter are nonspecific but are most compatible with chronic microvascular ischemic changes. Suprasellar region: No abnormalities. Craniocervical junction: Patent foramen magnum. No Chiari malformation. Vessels: Normal flow-voids in the arteries and sinuses. Mastoid air cells: Mild chronic inflammatory changes at the mastoid tip. Minimal T2 hyperintense reactive changes at the right mastoid tip. Incidental findings: Lens replacements for previous cataract surgery. IMPRESSION: 1. Acute infarcts in the left MCA territory with moderate size infarct in the distal left MCA territory which extends to the left MCA-RESTAURANT INSPECTOR cortical border. Small focal acute hemorrhagic conversion of infarct in the left lateral occipitotemporal region. 2. Regional mass effect does not result in midline shift/herniation. 3. No other changes from the prior head CT of 11/29/2018. Chronic findings: Mild generalized parenchymal volume loss. Mild chronic microvascular ischemic changes. Small chronic left posterior insular, left precentral and left cerebellar infarcts. Findings discussed with RNAlexsandra, at 2:06 PM on 12/01/2018. Signed by: Dr. Satinder Gómez M.D. on 12/01/2018 2:20 PM
[2018-12-01] MEDS: METOPROLOL TARTRATE INJ 1 MG/ML VIAL IV SCH ×2 (14:45→22:00)
[2018-12-01] MEDS: EYE LUBRICANT OPTH OINT 3.5GM TUBE OP SCH (22:00)
[2018-12-02] VITALS (29 sets, daily range): BP systolic 92–205; BP diastolic 35–103
[2018-12-02] MEDS: METOPROLOL TARTRATE INJ 1 MG/ML VIAL IV SCH ×2 (05:30→13:36)
--- NOTE | 2018-12-02 07:59 | Diagnostic Imaging Report ---
Portable chest, central frontal view Clinical indication: Pneumonia Comparison: 06/25/2018, 06/26/2018 Impression: The heart is within normal limits of size. There is a patchy opacity at the left base which partially obscures the cardiac border for which pneumonia should be clinically excluded. A trace right pleural effusion is present. There is bibasilar atelectasis. No acute osseous abnormalities. Signed by: Rolando Kearney MD on 12/02/2018 7:55 AM
[2018-12-02] MEDS: ARTIFICIAL TEARS (OPTH) 15 ML BTL OP SCH ×4 (10:21→21:44)
[2018-12-02] MEDS: PANTOPRAZOLE 40 MG 10ML VIAL IV SCH ×2 (10:21→17:46)
[2018-12-02] MEDS ORDERED: ACETAMINOPHEN 1000 MG/100 ML IV PRN (11:15)
[2018-12-02 11:55] LABS: BASOPHILS % 0.3 % (0.0-1.0); EOSINOPHILS % 0.3 % (0.0-6.0); HEMOGLOBIN 15.1 g/dL (14.0-18.0); LYMPHOCYTES # (AUTO) 1.2 (1.0-3.2); LYMPHOCYTES % 11.2 % (18.0-39.1); MEAN CORPUSCULAR HEMOGLOBIN 30.9 pg (28-32); MEAN CORPUSCULAR HGB CONC 32.8 g/dL (31-35); MEAN CORPUSCULAR VOLUME 94.1 fL (81-99); MONOCYTES # (AUTO) 0.7 (0.2-0.8); MONOCYTES % 6.1 % (4.4-11.3); NEUTROPHILS # (AUTO) 8.8 (2.1-6.9); NEUTROPHILS % 81.4 % (38.7-80.0); PLATELET COUNT 226 x10e3/uL (140-360); RED BLOOD COUNT 4.89 x10e6/uL (4.3-5.7); RED CELL DISTRIBUTION WIDTH 15.8 % (11.7-14.4)
[2018-12-02 12:47] LABS: ALANINE AMINOTRANSFERASE 24 IU/L (0-55); ALBUMIN 2.7 g/dL (3.5-5.0); ALKALINE PHOSPHATASE 58 IU/L (40-150); ANION GAP 11.7 mmol/L (8-16); BLOOD UREA NITROGEN 20 mg/dL (7-26); BUN/CREATININE RATIO 19 (6-25); CARBON DIOXIDE 30 mmol/L (22-29); CHLORIDE 103 mmol/L (98-107); CREATININE, SERUM 1.08 mg/dL (0.72-1.25); EST GLOMERULAR FILTRATION RATE > 60 ML/MIN (60-); GLUCOSE 95 mg/dL (74-118); POTASSIUM 3.7 mmol/L (3.5-5.1); SODIUM 141 mmol/L (136-145)
[2018-12-02] MEDS: HYDRALAZINE HCL 20 MG/ML VIAL IV PRN (14:45)
--- NOTE | 2018-12-02 14:50 | Diagnostic Imaging Report ---
Abdomen, one view on 2 radiographs Clinical indications: Abdominal distention Findings: No dilated loops of large or small bowel are identified. There is no evidence of obstruction. Cholecystectomy clips are seen in the right upper quadrant. No acute osseous abdomen bodies are identified. Impression: Nonobstructive bowel gas pattern. Signed by: Rolando Kearney MD on 12/02/2018 2:46 PM
--- NOTE | 2018-12-02 17:35 | Diagnostic Imaging Report ---
Modified barium swallow exam with speech pathology service, 12/02/2018 CLINICAL HISTORY: Difficulty swallowing after stroke Fluoro Time: 0.9 min. Estimated dose 11.4 mGy reference air kerma IMPRESSION: Please see the speech pathology service report for details. Barium contrast of multiple consistencies is given to the patient to swallow. Fluoroscopic observation is performed during swallowing. Signed by: Rolando Kearney MD on 12/02/2018 5:32 PM
[2018-12-02] MEDS: ATENOLOL 50 MG TAB PO SCH (19:30)
[2018-12-02] MEDS: DICYCLOMINE HCL 10 MG CAP PO PRN (19:31)
[2018-12-02] MEDS ORDERED: [UNRECOGNIZED DRUG - OTHER] TP ONE (20:30)
[2018-12-02] MEDS: EYE LUBRICANT OPTH OINT 3.5GM TUBE OP SCH (21:44)
[2018-12-02] MEDS: ATORVASTATIN 20 MG TAB PO SCH (22:09)
[2018-12-03] VITALS (30 sets, daily range): BP systolic 105–196; BP diastolic 58–113
[2018-12-03] MEDS: HYDRALAZINE HCL 20 MG/ML VIAL IV PRN ×2 (03:19→14:59)
[2018-12-03] MEDS: ARTIFICIAL TEARS (OPTH) 15 ML BTL OP SCH ×4 (08:03→20:30)
[2018-12-03] MEDS: PANTOPRAZOLE 40 MG 10ML VIAL IV SCH ×2 (08:03→18:10)
[2018-12-03] MEDS: ATENOLOL 50 MG TAB PO SCH (09:50)
[2018-12-03] MEDS: DICYCLOMINE HCL 10 MG CAP PO PRN ×2 (11:42→20:30)
[2018-12-03] MEDS ORDERED: BISACODYL 10 MG SUPP PR NR (15:15)
[2018-12-03] MEDS ORDERED: MORPHINE SULFATE 2 MG/ML SYR 1ML ONE (16:58)
[2018-12-03] MEDS ORDERED: MORPHINE SULFATE 2 MG/ML SYR 1ML IV STA (17:04)
[2018-12-03] MEDS: EYE LUBRICANT OPTH OINT 3.5GM TUBE OP SCH (20:30)
[2018-12-03] MEDS: ATORVASTATIN 20 MG TAB PO SCH (20:30)
[2018-12-04] VITALS (35 sets, daily range): BP systolic 100–168; BP diastolic 48–91
[2018-12-04] MEDS: HYDRALAZINE HCL 20 MG/ML VIAL IV PRN (06:08)
[2018-12-04] MEDS: DICYCLOMINE HCL 10 MG CAP PO PRN ×3 (07:44→20:15)
[2018-12-04] MEDS ORDERED: MORPHINE SULFATE 2 MG/ML SYR 1ML ONE (08:36)
[2018-12-04] MEDS: ARTIFICIAL TEARS (OPTH) 15 ML BTL OP SCH ×4 (09:00→20:15)
[2018-12-04] MEDS: ATENOLOL 50 MG TAB PO SCH (09:30)
[2018-12-04] MEDS: PANTOPRAZOLE 40 MG 10ML VIAL IV SCH ×2 (09:30→17:00)
[2018-12-04] MEDS: AMIODARONE HCL 200 MG TAB PO SCH (10:15)
[2018-12-04] MEDS: TAMSULOSIN HCL 0.4 MG CAP PO SCH (10:15)
[2018-12-04] MEDS ORDERED: MORPHINE SULFATE 2 MG/ML SYR 1ML IV NR (10:30)
--- NOTE | 2018-12-04 11:57 | NUR ---
per MD Hong, add ensure to each meal tray for extra calories and protein.
[2018-12-04] MEDS ORDERED: SIMETHICONE 80 MG CHEW PO PRN (14:15)
--- NOTE | 2018-12-04 15:56 | NUR ---
patient continues to have episodes of "cramping" or "gas pains" then usually has bm soon after. patient calm after bm when cramping resolves (several minutes). 3 episodes in last 8 hours. administering prn medications. unable to determine if helps relieve pain due to patient limited vocabulary at this time. at bedside and witnessed episode today.
--- NOTE | 2018-12-04 16:01 | NUR ---
patient following commands, limited use of vocabulary. answering yes and no. right sided weakness. strength has improved over past couple days. moderate strength in right hand grasp compared to left. pupils equal and reactive. patient able to turn self in bed from left to right.
--- NOTE | 2018-12-04 17:15 | Progress Note ---
DATE: 12/04/2018 SUBJECTIVE: The patient did well overnight. No new issues. OBJECTIVE: VITAL SIGNS: Temperature 98.0, pulse 64, blood pressure 133/63, sats 96% on room air. GENERAL: No apparent distress, lying in bed. CARDIOVASCULAR: Regular rate and rhythm. LUNGS: Clear to auscultation bilaterally. ABDOMEN: Good bowel sounds. Soft and nontender. No peritoneal signs. EXTREMITIES: No clubbing, cyanosis. NEUROLOGICAL: Left upper and lower extremity is 5/5. Right upper extremity is 4/5 with much improved site interpreter from yesterday. Right lower extremity is 4/5, but unfortunately still has expressive aphasia where he is only able to say yes, no okay, but he does follow commands appropriately and appears to understand appropriately. ASSESSMENT/PLAN: 1. Left cerebrovascular accident of the MCA distribution. Continue with current care. We will plan on ultimately rehab. 2. Gastroesophageal reflux disease, continue with Protonix. 3. Benign prostatic hypertrophy, we will restart his tamsulosin. 4. Hypertension, we will continue with his atenolol. 5. Hyperlipidemia, continue with atorvastatin. 6. History of coronary artery disease, we will continue with his medications. We will still have to hold on his anti-platelet therapy due to a small bleed in the brain. 7. Chronic kidney disease, stage 3. We will continue to monitor. Please see hospital chart for full details. MD JOSE FRANCISCO Yung/GERONIMO /[id number]
--- NOTE | 2018-12-04 18:55 | NUR ---
nrs report given to Jalen TAYLOR
[2018-12-04] MEDS: EYE LUBRICANT OPTH OINT 3.5GM TUBE OP SCH (20:15)
[2018-12-04] MEDS: ATORVASTATIN 20 MG TAB PO SCH (20:15)
[2018-12-05] VITALS (28 sets, daily range): BP systolic 108–166; BP diastolic 55–106
[2018-12-05] MEDS: SIMETHICONE 80 MG CHEW PO SCH ×4 (07:06→23:24)
[2018-12-05] MEDS: ARTIFICIAL TEARS (OPTH) 15 ML BTL OP SCH ×4 (09:00→20:10)
--- NOTE | 2018-12-05 09:08 | NUR ---
pt moaning on palpation of suprapubic area. urine smells foul and bladder scanner shows 290cc retention. called Dr. Hong and rec'd orders for Rocephin 1g Q24. orders placed as rec'd. will continue to monitor
--- NOTE | 2018-12-05 09:51 | NUR ---
condom cath placed, pt grunts out and passes small amount of urine (approx 5-10cc at a time). Dr. Hong notified rec'd order for UA and urine culture. will obtain and send to lab. will continue to monitor
[2018-12-05] MEDS: LACTOBACILLUS ACIDOPHILUS CAPSULE PO SCH ×2 (09:54→17:45)
[2018-12-05] MEDS: AMIODARONE HCL 200 MG TAB PO SCH (09:54)
[2018-12-05] MEDS: TAMSULOSIN HCL 0.4 MG CAP PO SCH (09:54)
[2018-12-05] MEDS: ATENOLOL 50 MG TAB PO SCH (09:54)
[2018-12-05] MEDS: PANTOPRAZOLE 40 MG 10ML VIAL IV SCH ×2 (10:20→17:45)
[2018-12-05] MEDS: CEFTRIAXONE SOD 1 GM/NS 50 ML 50 ML IV SCH (10:25)
[2018-12-05 10:49] LABS: BILIRUBIN,URINE NEGATIVE (NEGATIVE); CLARITY,URINE SL CLOUDY (CLEAR); COLOR,URINE YELLOW (YELLOW); KETONES,URINE NEGATIVE (NEGATIVE); LEUKOCYTE ESTERASE ,URINE SMALL (NEGATIVE); NITRITE,URINE NEGATIVE (NEGATIVE); PROTEIN,URINE DIPSTICK TRACE (NEGATIVE); URINE UROBILINOGEN 0.2 mg/dL (0.2 - 1)
[2018-12-05 10:52] LABS: AMORPHOUS SEDIMENT,URINE FEW (FEW); BACTERIA,URINE MANY /HPF; EPITHELIAL CELLS,URINE MODERATE /LPF; YEAST,URINE FEW
--- NOTE | 2018-12-05 15:31 | NUR ---
WOUNDCARE CONSULT FOR 73 YO MALE HX OF STROKE NIRMALA 15 MAINTAINED ON MODERATE PUP ALTERNATING PRESSURE MATTRESS IN PLACE WITH BILATERAL PILLOW SUSPENSION OF HEELS LABS:WBC-10.82,HGB-15.1,GLUCOSE-95,HEM A1C -5.3 ASSESSMENT FINDINGS: PT HAS THIN SKIN AND GENERAL EDEMA WHICH IS FINDING ITS WAY OUT THROUGH SMALL OPEN AREAS NONE OF THE OPEN PARTIAL THICKNESS SKIN TEARS SHOW ACTIVE SIGNS OF INFECTION AT THIS TIME WOUNDS ARE FOLLOWS #1 LFT LATERAL FACE SUTURE LINE POST SURGICAL TUMOR REMOVAL 4.5CM WITH NO DRAINAGE NOTED AT THIS TIME #2 LFT ARM SKIN TEAR PARTIAL THICKNESS .5CMX 1CM X.1 CM WITH SEROUS DRAINAGE CLEAN PINK WOUND BASE #3RT LOWER ARM PARTIAL THICKNESS SKIN TEAR 3.5CM X 4CM X .1CM PINK WOUNDBASE SEROUS MODERATE DRAINAGE SURROUNDING SKIN DARK BRUISED COLOR #4 RT UPPER ARM 2.5CM X1CMX .1 CM PARTIAL THICKNESS WOUND SKIN TEAR PINK WOUND BASE WITH MODERATE SEROUS DRAINAGE RECOMENDATIONS : NURSING TO APPLY TO LFT LATERAL FACE DAILY BACTROBAN OINTMENT AND OPEN TO AIR NURSING TO APPLY DAILY XEROFORM GAUZE TO RT LOWER ARM COVER WITH ABD AND SECURE WITH KERLIX AND LIGHT WRAP NURSING TO APPLY DAILY XEROFORM GAUZE COVER WITH SMALL ALLEVYN FOAM TO RT AND LEFT UPPER ARM SKIN TEARS NURSING TO MAINTAIN MODERATE PUP PRECAUTIONS AND ALTERNATING MATTRESS WITH BILATERAL PILLOW SUSPENSION OF HEELS Addendum: 12/05/18 at 1553 by Tobias Centeno RN Amended: Links added.
--- NOTE | 2018-12-05 17:18 | NUR ---
Nutrition Screen Note RD Recommendation for Physician: - Continue current diet per CARRY IN WORKER/MD - Continue Ensure Enlive TID nectar thick Plan of Care: RD following, monitoring for tolerance and adequacy Nutrition reason for involvement: LOS Primary Diagnose(s): L CVA PMH: HTN, GERD, HLD, CAD, CKD3 Ht: 81 in Wt: 251.31 lb BMI: 26.9 kg/m2 IBW: 206.[address] Assessment: (12/05) 73 YOM admitted for L sided CVA, seen today for LOS. Pt discussed during am rounds, RN reports poor intake of meals with good intake of Ensure and premier protein shakes brought in by family that are then thickened. Pt continues with expressive aphasia post CVA, however was able to answer yes/no questions. 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 Family at bedside reports decreased appetite and intake currently 2/2 being "gassy" and reflux- pt confirmed statement. Encouraged po intake as tolerated and continued good supplement intake. Pt discussed with RN on unit. CARRY IN WORKER following. Chart reviewed. Labs and meds reviewed. Will monitor and continue to follow. Current Diet: Cardiac, ground, nectar thick liquids Ensure Enlive TID Malnutrition Evaluation (12/05/18) The patient does not meet criteria for a specified degree of malnutrition at this time. Will re-evaluate at follow-up as appropriate. Energy intake: <50% of estimated energy requirements for >5 days Weight loss: No wt loss reported Fat loss: None, eyes- bulging fat pads Muscle loss: None, shoulder round Diet Education Needs Assessment: Diet education indicated, pt not appropriate at this time. Nutrition Care Level: Low Signed: Laura Mcclain RD, LD, [facility]
--- NOTE | 2018-12-05 18:15 | Consultation ---
DATE OF CONSULTATION: 12/05/2018 I would like to thank Dr. Hong for asking me to see Mr. Casiano in consultation. REASON FOR CONSULTATION: 1. Status post cerebrovascular accident with right-sided hemiparesis. 2. History of previous CVA. 3. Hypertension. 4. History of blood clots, DVTs. HISTORY: A 73-year-old with his INR was subtherapeutic at 1.3 . The patient underwent evaluation CPA, who is currently in the ICU on behalf . PAST MEDICAL HISTORY: Include: 1. Previous history of stroke. 2. Hypertension. 3. hyperlipidemia. 4. Coronary artery disease. 5. Chronic obstructive pulmonary disease. 6. Squamous cell carcinoma of the skin. 7. Pneumonia. 8. Lung cancer, post resection. 9. Previous BNP. 10. Pulmonary embolus. 11. Essential tremor. PAST SURGICAL HISTORY: 1. Melanoma resection with subsequent infection, lung bleb removal. 2. Cholecystectomy. 3. Cervical spine fusion. 4. using walker, sometime with wheelchair to mobilizing get around he has been slow progression with his therapy, quit smoking in 18 years ago. No drug use. ALLERGIES: CODEINE. PHYSICAL EXAMINATION: VITAL SIGNS: Respiration 14, heart rate 67 very well. He could not really tell me , but he does have some right-sided facial droop. NECK: No JVD. HEART: Regular. BACK: He is uncomfortably going on his . EXTREMITIES: He moves his arms and legs, but obviously he moves left arm slight better than right arm brisk on right when I was not examining. His left leg and arm seem to be pretty weak, but possibly also not . IMPRESSION: 1. Status post cerebrovascular accident with right-sided hemiparesis. 2. History of previous cerebrovascular accident. 3. History of chronic obstructive pulmonary disease. 4. . Thank you once again for allowing me to participate in the care of this urgent, but unfortunate patient. Conrad Kerns DO RPL/GERONIMO /[id number]
[2018-12-05] MEDS: ATORVASTATIN 20 MG TAB PO SCH (20:10)
[2018-12-05] MEDS: EYE LUBRICANT OPTH OINT 3.5GM TUBE OP SCH (20:10)
[2018-12-05] MEDS: PHENAZOPYRIDINE HCL 100 MG TAB PO SCH (20:10)
[2018-12-05] MEDS ORDERED: MORPHINE SULFATE 2 MG/ML SYR 1ML ONE (21:09)
[2018-12-05] MEDS ORDERED: ACETAMINOPHEN 325 MG TAB ONE (21:10)
[2018-12-05] MEDS: MORPHINE SULFATE 2 MG/ML SYR 1ML IV PRN (21:10)
[2018-12-05] MEDS: ACETAMINOPHEN 325 MG TAB PO PRN (21:20)
[2018-12-06] VITALS (24 sets, daily range): BP systolic 112–163; BP diastolic 58–98
[2018-12-06] MEDS: MORPHINE SULFATE 2 MG/ML SYR 1ML IV PRN ×6 (04:40→22:35)
[2018-12-06] MEDS: ACETAMINOPHEN 325 MG TAB PO PRN (05:03)
[2018-12-06] MEDS: SIMETHICONE 80 MG CHEW PO SCH ×3 (05:05→17:00)
[2018-12-06] MEDS: PHENAZOPYRIDINE HCL 100 MG TAB PO SCH ×3 (05:05→22:15)
--- NOTE | 2018-12-06 05:18 | Diagnostic Imaging Report ---
History:Headache, hematoma Comparison studies: Brain MRI on 06/26/2018, head CT on 11/29/2018, brain MRI on 12/01/2018. Technique: Axial images were obtained from the skull base to the vertex. Coronal and sagittal images reconstructed from the axial data. Dose modulation, iterative reconstruction, and/or weight based adjustment of the mA/kV was utilized to reduce the radiation dose to as low as reasonably achievable. Intravenous contrast: None Findings: See impression Impression: 1. No new acute abnormalities. 2. Previously described left temporoparietal/lateral occipital MCA vascular insult on the MRI dated 12/01/2018 has evolved into a clearly visualized area of hypodensity. Smaller components of this insult in the left frontal lobe, clearly seen on the diffusion-weighted sequence of the MRI, are beyond the scope of resolution for this noncontrast head CT. 3. An associated 1.5 cm cortical hematoma in the left lateral occipital convexity (series 2, image 12) has not changed and is not associated with mass effect. 4. No additional significant abnormalities. Chronic persistent findings: * Mild generalized volume loss. * Mild supratentorial white matter small vessel ischemic changes. * Atherosclerotic calcifications in the carotid siphons. Signed by: Dr. Carlos Akhtar M.D. on 12/06/2018 5:14 AM
--- NOTE | 2018-12-06 05:34 | Diagnostic Imaging Report ---
EXAM: Abdomen 3 radiographs INDICATION: ^abd pain ^[id number] ^[id number] COMPARISON: KUB dated 12/02/2018 FINDINGS: Nonobstructive bowel gas pattern. No signs of pneumoperitoneum. Contrast within colon, from prior studies. No calcification overlying renal shadows. No acute osseous abnormality. Degenerative changes of spine. Right abdomen surgical clips. IMPRESSION: Nonobstructive bowel gas pattern. Signed by: Dr. Mundo Carrillo MD on 12/06/2018 5:31 AM
[2018-12-06 06:18] LABS: BASOPHILS # (AUTO) 0.1 (0.0-0.1); BASOPHILS % 0.4 % (0.0-1.0); EOSINOPHILS # (AUTO) 0.1 (0.0-0.4); EOSINOPHILS % 0.8 % (0.0-6.0); HEMATOCRIT 44.9 % (38.2-49.6); HEMOGLOBIN 14.4 g/dL (14.0-18.0); LYMPHOCYTES # (AUTO) 3.2 (1.0-3.2); LYMPHOCYTES % 23.2 % (18.0-39.1); MEAN CORPUSCULAR HEMOGLOBIN 30.7 pg (28-32); MEAN CORPUSCULAR HGB CONC 32.1 g/dL (31-35); MEAN CORPUSCULAR VOLUME 95.7 fL (81-99); MONOCYTES # (AUTO) 1.2 (0.2-0.8); MONOCYTES % 8.7 % (4.4-11.3); NEUTROPHILS % 65.8 % (38.7-80.0); PLATELET COUNT 225 x10e3/uL (140-360); RED BLOOD COUNT 4.69 x10e6/uL (4.3-5.7); RED CELL DISTRIBUTION WIDTH 15.9 % (11.7-14.4)
[2018-12-06 06:39] LABS: ALBUMIN 2.8 g/dL (3.5-5.0); ANION GAP 11.1 mmol/L (8-16); CALCIUM 9.3 mg/dL (8.4-10.2); CREATININE, SERUM 1.49 mg/dL (0.72-1.25); MAGNESIUM 1.9 MG/DL (1.3-2.1); POTASSIUM 4.1 mmol/L (3.5-5.1)
[2018-12-06] MEDS: PANTOPRAZOLE 40 MG 10ML VIAL IV SCH ×2 (07:44→16:24)
[2018-12-06] MEDS: DICYCLOMINE HCL 10 MG CAP PO PRN ×2 (07:45→16:25)
[2018-12-06] MEDS: ARTIFICIAL TEARS (OPTH) 15 ML BTL OP SCH ×4 (08:15→20:08)
[2018-12-06] MEDS: ATENOLOL 50 MG TAB PO SCH (08:16)
[2018-12-06] MEDS: LACTOBACILLUS ACIDOPHILUS CAPSULE PO SCH ×2 (08:16→16:24)
[2018-12-06] MEDS: TAMSULOSIN HCL 0.4 MG CAP PO SCH (08:16)
[2018-12-06] MEDS: AMIODARONE HCL 200 MG TAB PO SCH (08:16)
[2018-12-06] MEDS: CEFTRIAXONE SOD 1 GM/NS 50 ML 50 ML IV SCH (08:16)
[2018-12-06] MEDS: HYDRALAZINE HCL 10 MG TAB PO SCH ×2 (08:16→16:24)
[2018-12-06] MEDS ORDERED: VANCOMYCIN 1GM/NS 250 ML 250 ML IV ONE ×2 (18:00→20:00)
[2018-12-06] MEDS: ATORVASTATIN 20 MG TAB PO SCH (20:08)
[2018-12-06] MEDS: EYE LUBRICANT OPTH OINT 3.5GM TUBE OP SCH (20:08)
[2018-12-07] VITALS (21 sets, daily range): BP systolic 111–158; BP diastolic 55–93
[2018-12-07] MEDS: MORPHINE SULFATE 2 MG/ML SYR 1ML IV PRN ×4 (01:35→21:46)
[2018-12-07] MEDS: PHENAZOPYRIDINE HCL 100 MG TAB PO SCH ×3 (05:04→21:45)
[2018-12-07] MEDS: VANCOMYCIN 1GM/NS 250 ML 250 ML IV SCH ×2 (06:04→16:29)
[2018-12-07] MEDS: HYDRALAZINE HCL 10 MG TAB PO SCH ×2 (08:06→16:29)
[2018-12-07] MEDS: ARTIFICIAL TEARS (OPTH) 15 ML BTL OP SCH ×4 (08:06→21:45)
[2018-12-07] MEDS: PANTOPRAZOLE 40 MG 10ML VIAL IV SCH ×2 (08:06→16:29)
[2018-12-07] MEDS: CEFTRIAXONE SOD 1 GM/NS 50 ML 50 ML IV SCH (08:07)
[2018-12-07] MEDS: DICYCLOMINE HCL 10 MG CAP PO PRN ×2 (08:07→13:37)
[2018-12-07] MEDS: AMIODARONE HCL 200 MG TAB PO SCH (08:07)
[2018-12-07] MEDS: FLUCONAZOLE 100 MG TAB PO SCH (08:07)
[2018-12-07] MEDS: TAMSULOSIN HCL 0.4 MG CAP PO SCH (08:07)
[2018-12-07] MEDS: ATENOLOL 50 MG TAB PO SCH (08:07)
[2018-12-07] MEDS: LACTOBACILLUS ACIDOPHILUS CAPSULE PO SCH ×2 (08:07→16:29)
--- NOTE | 2018-12-07 18:05 | NUR ---
Patient has had poor appetite today and did not participate with physical therapy. Dr. Hong aware that urine culture growing E. Coli. Orders given to transfer to medical surgical floor with telemetry. Transferring to room 286.
--- NOTE | 2018-12-07 18:55 | NUR ---
PATIENT RECEIVED FROM ICU. ALERT AND RESPONSIVE, ABLE TO ANSWER YES. BRUISES AND SKIN TEARS TO BOTH ARMS. REDNESS TO GROIN. SCD AND TELEMETRY IN PLACE. BED IN LOWER POSITION AND LOCKED. CALL LIGHT AT REACH.
[2018-12-07] MEDS: ATORVASTATIN 20 MG TAB PO SCH (21:45)
[2018-12-07] MEDS: EYE LUBRICANT OPTH OINT 3.5GM TUBE OP SCH (21:45)
--- NOTE | 2018-12-07 21:55 | NUR ---
CHANGED THE PT AND GIVEN PAIN MEDICATION .CONTINUE TO MONITOR
--- NOTE | 2018-12-07 23:41 | NUR ---
RECEIVED . ALERT AND RESPONSIVE, PT IS APHASIC BRUISES AND SKIN TEARS TO BOTH ARMS. REDNESS TO GROIN. FAMILY AT THE BEDSIDE
[2018-12-08] VITALS (9 sets, daily range): BP systolic 119–157; BP diastolic 62–87
[2018-12-08] MEDS ORDERED: SODIUM CHLORIDE 0.9% 250ML 250 ML ONE (03:20)
[2018-12-08] MEDS: VANCOMYCIN 1GM/NS 250 ML 250 ML IV SCH ×2 (05:42→18:05)
[2018-12-08] MEDS: PHENAZOPYRIDINE HCL 100 MG TAB PO SCH ×3 (06:00→21:00)
--- NOTE | 2018-12-08 06:41 | NUR ---
PT RESTED DURING THE NIGHT .MEDICATEDX1 WITH PAIN MEDICINE FAMILY AT THE [facility].CALL LIGHT WITH IN REACH .CONTINUE TO MONITOR
--- NOTE | 2018-12-08 06:58 | NUR ---
BEDSIDE REPORT GIVEN TO THE ONCOMING NURSE
--- NOTE | 2018-12-08 07:10 | NUR ---
PATIENT ASSISTED WITH DIAPER CHANGE. REPOSITIONED IN BED. REDNESS, SWELLING AND SKIN TEARS TO BOTH ORMS; ELEVATED ON PILLOW. SCD AND TELEMETRY BOX IN PLACE. BED IN LOWER POSITION, CALL LIGHT AT REACH.
[2018-12-08] MEDS: ARTIFICIAL TEARS (OPTH) 15 ML BTL OP SCH ×4 (09:00→20:30)
[2018-12-08] MEDS: PANTOPRAZOLE 40 MG 10ML VIAL IV SCH ×2 (09:38→17:00)
[2018-12-08] MEDS: CEFTRIAXONE SOD 1 GM/NS 50 ML 50 ML IV SCH (09:39)
[2018-12-08] MEDS: ATENOLOL 50 MG TAB PO SCH (09:39)
[2018-12-08] MEDS: LACTOBACILLUS ACIDOPHILUS CAPSULE PO SCH ×2 (09:39→17:00)
[2018-12-08] MEDS: HYDRALAZINE HCL 10 MG TAB PO SCH ×2 (09:39→17:00)
[2018-12-08] MEDS: AMIODARONE HCL 200 MG TAB PO SCH (09:39)
[2018-12-08] MEDS: TAMSULOSIN HCL 0.4 MG CAP PO SCH ×2 (09:39→17:00)
[2018-12-08] MEDS: FLUCONAZOLE 100 MG TAB PO SCH (09:39)
--- NOTE | 2018-12-08 11:37 | NUR ---
PATIENT IN BED WITH HEAD OF BED ELEVATED, NO DISTRESS NOTED. FAMILY MEMBER AT BED SIDE. BED IN LOWER POSITION, CALL LIGHT AT REACH.
--- NOTE | 2018-12-08 15:09 | NUR ---
ST NOTE: Pt overly fatigued after bath and working with PT. Pt experiencing prostate pain, refused Speech Therapy to treat dysphagia, discussed with spouse, will return on 12/09/18 to resume treatment.
[2018-12-08] MEDS: DICYCLOMINE HCL 10 MG CAP PO PRN (15:15)
[2018-12-08] MEDS: EYE LUBRICANT OPTH OINT 3.5GM TUBE OP SCH (20:30)
--- NOTE | 2018-12-08 20:30 | NUR ---
PATIENT IN STABLE CONDITION, NO SIGNS OF RESPIRATORY DISTRESS NOTED. PATIENT IS APHASIC AND FAMILY MEMBERS ARE PRESENT AT BEDSIDE. HEAD OF BED ELEVATED, PATIENT IN DIAPER, BED IN LOWEST POSITION, BOTH SIDE RAILS ARE UP, CALL LIGHT WITHIN REACH, WILL CONTINUE TO MONITOR.
[2018-12-08] MEDS: ATORVASTATIN 20 MG TAB PO SCH (22:30)
[2018-12-08] MEDS: MORPHINE SULFATE 2 MG/ML SYR 1ML IV PRN (22:35)
[2018-12-08] MEDS: NYSTATIN 100,000 UNITS/GM CRM 30GM TUBE TOP SCH (23:00)
--- NOTE | 2018-12-08 23:00 | NUR ---
PATIENT DIAPER CHANGED, REDNESS IN GROIN NOTED. PATIENT MEDICATED WITH NEW CREAM ORDERED BY DOCTOR. WILL CONTINUE TO MONITOR.
[2018-12-09] VITALS (7 sets, daily range): BP systolic 129–173; BP diastolic 60–80
[2018-12-09] MEDS: LORAZEPAM INJ 2 MG/ML VIAL IV PRN ×3 (01:25→18:52)
--- NOTE | 2018-12-09 01:48 | NUR ---
PATIENT TRIED TO GET OUT OF BED DUE TO EXTREME AGITATION, WAS AT BEDSIDE. GOWN AND LEADS WERE REMOVED BY PATIENT AND HE WAS MEDICATED ORDERED. DIAPER AND GOWN WAS CHANGED. PATIENT IS NOW LAYING BACK IN BED, WILL CONTINUE TO MONITOR.
--- NOTE | 2018-12-09 03:30 | NUR ---
PATIENT TRIED TO GET OUT OF BED AGAIN DUE TO AGITATION. GOWN AND DIAPER WERE ALSO WET WITH URINE. THE GOWN AND DIAPER WERE BOTH CHANGED, PATIENT CLEANED AND TUCKED BACK IN TO BED. WILL CONTINUE TO MONITOR SITUATION.
[2018-12-09] MEDS: VANCOMYCIN 1GM/NS 250 ML 250 ML IV SCH (06:22)
[2018-12-09] MEDS: PHENAZOPYRIDINE HCL 100 MG TAB PO SCH ×3 (06:22→21:45)
[2018-12-09 07:07] LABS: BASOPHILS # (AUTO) 0.1 (0.0-0.1); BASOPHILS % 0.6 % (0.0-1.0); EOSINOPHILS % 0.3 % (0.0-6.0); HEMATOCRIT 43.1 % (38.2-49.6); HEMOGLOBIN 14.1 g/dL (14.0-18.0); LYMPHOCYTES # (AUTO) 1.2 (1.0-3.2); LYMPHOCYTES % 13.6 % (18.0-39.1); MEAN CORPUSCULAR HEMOGLOBIN 31.1 pg (28-32); MEAN CORPUSCULAR HGB CONC 32.7 g/dL (31-35); MEAN CORPUSCULAR VOLUME 94.9 fL (81-99); MONOCYTES # (AUTO) 0.6 (0.2-0.8); MONOCYTES % 6.4 % (4.4-11.3); NEUTROPHILS % 77.8 % (38.7-80.0); PLATELET COUNT 169 x10e3/uL (140-360); RED BLOOD COUNT 4.54 x10e6/uL (4.3-5.7); RED CELL DISTRIBUTION WIDTH 15.2 % (11.7-14.4)
[2018-12-09 07:30] LABS: ALBUMIN 2.8 g/dL (3.5-5.0); ALBUMIN/GLOBULIN RATIO 1.1 (0.8-2.0); ANION GAP 12.3 mmol/L (8-16); CREATININE, SERUM 1.31 mg/dL (0.72-1.25); MAGNESIUM 1.8 MG/DL (1.3-2.1); POTASSIUM 4.3 mmol/L (3.5-5.1)
[2018-12-09 07:52] LABS: PLATELET ESTIMATE MODERATELY DECREASED
[2018-12-09 07:53] LABS: PLATELET MORPHOLOGY COMMENT FEW LARGE; RBC MORPHOLOGY COMMENT NORMAL
[2018-12-09] MEDS: ARTIFICIAL TEARS (OPTH) 15 ML BTL OP SCH ×4 (09:16→21:00)
[2018-12-09] MEDS: FLUCONAZOLE 100 MG TAB PO SCH (09:16)
[2018-12-09] MEDS: PANTOPRAZOLE 40 MG 10ML VIAL IV SCH ×2 (09:16→18:03)
[2018-12-09] MEDS: AMIODARONE HCL 200 MG TAB PO SCH (09:16)
[2018-12-09] MEDS: HYDRALAZINE HCL 10 MG TAB PO SCH ×2 (09:16→18:03)
--- NOTE | 2018-12-09 09:16 | Diagnostic Imaging Report ---
CT BRAIN WO HISTORY: Stroke, CVA COMPARISON: Head CT 12/06/2018; MRI of the brain 12/01/2018 Technique: Noncontrast axial scans were obtained from skull base to the vertex. Coronal and sagittal reconstructions obtained from the axial data. One or more of the following dose reduction techniques were used: Automated exposure control, adjustment of the mA and/or kV according to patient size, and/or utilization of iterative reconstruction technique. DISCUSSION: Scalp/Skull: Unremarkable. Brain sulci: Mildly prominent. Ventricles: Compensatory dilatation. Extra-axial spaces: No masses or fluid collections. Carotid siphon calcifications are present. Parenchyma: Evolving subacute infarct along the left inferior parietal lobule is associated with slightly decreased local edema/brain swelling. Small hematoma along the posterior aspect of the infarct is less conspicuous. An additional small area of petechial hemorrhagic conversion remains. Associated, additional small areas of ischemia along the left frontal convexity are better seen on MRI. There is no significant brain herniation. Mild bilateral deep white matter hypodensity is likely chronic microvascular ischemic change. There is an old small right cerebellar cortical infarct Otherwise, no new masses, or large vascular territory acute infarct. Dural sinuses: No abnormal densities. Sellar/Suprasellar region: Intact. Skull base: Intact. Incidental findings: Bilateral ocular lens replacement. IMPRESSION: 1. Evolving subacute infarct along the left inferior parietal lobule with slightly decreased local edema/brain swelling. No significant brain herniation. Small hematoma along the posterior aspect of infarct is less conspicuous. An additional small area of petechial hemorrhagic conversion remains. 2. Subtle additional small left frontal convexity watershed infarcts (ABDIRASHID-MCA) have not significantly changed. 3. No new acute intracranial abnormalities. 4. Mild supratentorial chronic microvascular ischemic change. Mild generalized cerebral volume loss. 5. Old small right cerebellar cortical infarct. Signed by: Dr. Devan Robbins M.D. on 12/09/2018 9:13 AM
[2018-12-09] MEDS: LACTOBACILLUS ACIDOPHILUS CAPSULE PO SCH ×2 (09:17→18:03)
[2018-12-09] MEDS: TAMSULOSIN HCL 0.4 MG CAP PO SCH ×2 (09:17→18:03)
[2018-12-09] MEDS: ATENOLOL 50 MG TAB PO SCH (09:17)
[2018-12-09] MEDS: NYSTATIN 100,000 UNITS/GM CRM 30GM TUBE TOP SCH ×3 (09:17→21:45)
[2018-12-09] MEDS: CEFTRIAXONE SOD 1 GM/NS 50 ML 50 ML IV SCH (09:21)
[2018-12-09] MEDS: CITALOPRAM HYDROBROMIDE 20 MG TAB PO SCH (09:58)
[2018-12-09] MEDS: MORPHINE SULFATE 2 MG/ML SYR 1ML IV PRN ×2 (10:09→18:01)
--- NOTE | 2018-12-09 12:48 | NUR ---
MET W THE PT AND TO DISCUSS INPATIENT REHAB CHOICE. STATES THE PT WILL GO TO [facility]. CHOICE LETTER WAS SIGNED AND COPY TO SPOUSE AND COPY TO CHART COPIED CHART BY [employer]; [employer]. FAXED TO [facility] @ OFF: [phone] / FAX: [phone]. NOTIFIED LIASON; MINE SANDOVAL RN.
[2018-12-09] MEDS ORDERED: ZIPRASIDONE 20 MG VIAL IM ONE ×2 (13:00)
[2018-12-09] MEDS ORDERED: WATER STERILE 10 ML VIAL IV ONE (13:00)
[2018-12-09] MEDS: ATORVASTATIN 20 MG TAB PO SCH (21:45)
[2018-12-09] MEDS: EYE LUBRICANT OPTH OINT 3.5GM TUBE OP SCH (21:45)
--- NOTE | 2018-12-09 21:45 | NUR ---
PATIENT IN STABLE CONDITION, NO SIGNS OF RESPIRATORY DISTRESS NOTED. PATIENT IS STILL APHASIC AND FAMILY MEMBER PRESENT AT BEDSIDE. HEAD OF BED ELEVATED, PATIENT IN DIAPER AND WAS RECENTLY CHANGED, BED IN LOWEST POSITION, BOTH SIDE RAILS ARE UP, CALL LIGHT WITHIN REACH, WILL CONTINUE TO MONITOR.
[2018-12-10] VITALS (7 sets, daily range): BP systolic 120–172; BP diastolic 56–80
--- NOTE | 2018-12-10 05:55 | NUR ---
SPOKE WITH DR. HERCULES AND HE ORDERED TO HOLD THE PATIENT'S 0600 MEDICATION.
[2018-12-10] MEDS: PHENAZOPYRIDINE HCL 100 MG TAB PO SCH ×3 (05:59→21:00)
[2018-12-10] MEDS: PANTOPRAZOLE 40 MG 10ML VIAL IV SCH ×2 (08:54→17:02)
[2018-12-10] MEDS: ARTIFICIAL TEARS (OPTH) 15 ML BTL OP SCH ×4 (08:54→21:00)
[2018-12-10] MEDS: VANCOMYCIN 750MG/NS 150ML IVPB 150 ML IV SCH ×2 (08:54→21:00)
[2018-12-10] MEDS: LACTOBACILLUS ACIDOPHILUS CAPSULE PO SCH ×2 (08:55→17:03)
[2018-12-10] MEDS: TAMSULOSIN HCL 0.4 MG CAP PO SCH ×2 (08:55→17:03)
[2018-12-10] MEDS: AMIODARONE HCL 200 MG TAB PO SCH (08:55)
[2018-12-10] MEDS: NYSTATIN 100,000 UNITS/GM CRM 30GM TUBE TOP SCH ×3 (08:56→19:20)
[2018-12-10] MEDS: FLUCONAZOLE 100 MG TAB PO SCH (08:56)
[2018-12-10] MEDS: HYDRALAZINE HCL 10 MG TAB PO SCH ×2 (09:10→17:03)
[2018-12-10] MEDS: ATENOLOL 50 MG TAB PO SCH (09:10)
[2018-12-10] MEDS: CEFTRIAXONE SOD 1 GM/NS 50 ML 50 ML IV SCH (09:30)
--- NOTE | 2018-12-10 19:00 | NUR ---
Patient visited in room during nursing rounds. Patient alert and oriented x2-3 (i.e pt tends to forget recent memory). No distress or discomfort noted. Pt noticeably having some essential shakes or tremors. at bedside. Pt diapered for incontinence (bowel and bladder). Pt is mostly aphasic but able to answer "yes" or "no" to simple questions. Pt is on bedrest at this time but able to turn in bed by self. Pt on Regular mech. soft diet with nectar thickened fluids. Call johnson within reach. Three side rails up per request and for safety.
--- NOTE | 2018-12-10 19:20 | NUR ---
Pt diaper changed due to bowel movement and urination. Stool was brown soft and pasty in texture. Linens changed as well. Pt cleaned on anal and perineal areas. Mycostatin cream applied on penis and per request.
[2018-12-10] MEDS ORDERED: SODIUM CHLORIDE 0.9% 250ML 250 ML ONE (20:52)
[2018-12-10] MEDS: EYE LUBRICANT OPTH OINT 3.5GM TUBE OP SCH (21:00)
[2018-12-10] MEDS: ATORVASTATIN 20 MG TAB PO SCH (21:00)
[2018-12-11] VITALS (7 sets, daily range): BP systolic 120–164; BP diastolic 58–75
--- NOTE | 2018-12-11 06:27 | NUR ---
at bedside requesting not to 6AM dose of Pyridium at this time. Patient is currently sleeping and wants pt to rest for now. She requested that Pyridium be given along with the 9AM meds. Will pass this information to incoming dayshift RN.
[2018-12-11] MEDS: PANTOPRAZOLE 40 MG 10ML VIAL IV SCH ×2 (08:58→16:52)
[2018-12-11] MEDS: PHENAZOPYRIDINE HCL 100 MG TAB PO SCH ×3 (08:58→20:45)
[2018-12-11] MEDS: VANCOMYCIN 750MG/NS 150ML IVPB 150 ML IV SCH ×2 (08:58→20:52)
[2018-12-11] MEDS: HYDRALAZINE HCL 10 MG TAB PO SCH ×2 (08:59→16:52)
[2018-12-11] MEDS: LACTOBACILLUS ACIDOPHILUS CAPSULE PO SCH ×2 (08:59→16:52)
[2018-12-11] MEDS: TAMSULOSIN HCL 0.4 MG CAP PO SCH ×2 (08:59→16:56)
[2018-12-11] MEDS: CITALOPRAM HYDROBROMIDE 20 MG TAB PO SCH (08:59)
[2018-12-11] MEDS: FLUCONAZOLE 100 MG TAB PO SCH (08:59)
[2018-12-11] MEDS: AMIODARONE HCL 200 MG TAB PO SCH (08:59)
[2018-12-11] MEDS: NYSTATIN 100,000 UNITS/GM CRM 30GM TUBE TOP SCH ×3 (09:01→20:30)
[2018-12-11] MEDS: ARTIFICIAL TEARS (OPTH) 15 ML BTL OP SCH ×4 (09:01→21:00)
[2018-12-11] MEDS: ATENOLOL 50 MG TAB PO SCH (09:01)
[2018-12-11] MEDS: CEFTRIAXONE SOD 1 GM/NS 50 ML 50 ML IV SCH (09:30)
[2018-12-11] MEDS: MORPHINE SULFATE 2 MG/ML SYR 1ML IV PRN (11:04)
--- NOTE | 2018-12-11 15:30 | NUR ---
Visit made by the Spiritual Care Department Pastoral Visitor, Blaise Fajardo. PV provided pastoral presence, hospitality, and supportive listening. Pastoral Visitor informed pt/family of the scope of [employer] and availability. [employer] Spiritual Care Department O: [phone] Pager: [phone] ([phone] number calling from)
[2018-12-11] MEDS: ATORVASTATIN 20 MG TAB PO SCH (20:45)
[2018-12-11] MEDS: EYE LUBRICANT OPTH OINT 3.5GM TUBE OP SCH (21:00)
[2018-12-12] VITALS (7 sets, daily range): BP systolic 134–180; BP diastolic 63–79
--- NOTE | 2018-12-12 06:00 | NUR ---
Patient's requested for patient not to take Pyridium 100mg PO at this time. Pt currently sleeping and wants pt to rest. suggested Pyridium to be given to patient around 0900 along with other day meds.
--- NOTE | 2018-12-12 07:10 | NUR ---
Received patient lying in bed with eyes closed. Respiration even and unlabored without SOB. Spouse at bedside. Call light in reach.
[2018-12-12] MEDS: ATENOLOL 50 MG TAB PO SCH (08:45)
[2018-12-12] MEDS: HYDRALAZINE HCL 10 MG TAB PO SCH (08:45)
[2018-12-12] MEDS: LACTOBACILLUS ACIDOPHILUS CAPSULE PO SCH (08:45)
[2018-12-12] MEDS: CITALOPRAM HYDROBROMIDE 20 MG TAB PO SCH (08:45)
[2018-12-12] MEDS: AMIODARONE HCL 200 MG TAB PO SCH (08:45)
[2018-12-12] MEDS: ARTIFICIAL TEARS (OPTH) 15 ML BTL OP SCH ×2 (08:45→13:04)
[2018-12-12] MEDS: TAMSULOSIN HCL 0.4 MG CAP PO SCH (08:45)
[2018-12-12] MEDS: PANTOPRAZOLE 40 MG 10ML VIAL IV SCH (08:45)
[2018-12-12] MEDS: NYSTATIN 100,000 UNITS/GM CRM 30GM TUBE TOP SCH (08:45)
[2018-12-12] MEDS: FLUCONAZOLE 100 MG TAB PO SCH (08:45)
[2018-12-12] MEDS: PHENAZOPYRIDINE HCL 100 MG TAB PO SCH (08:45)
[2018-12-12] MEDS ORDERED: SIMETHICONE 80 MG CHEW PO SCH (09:00)
[2018-12-12] MEDS: CEFTRIAXONE SOD 1 GM/NS 50 ML 50 ML IV SCH (12:00)
[2018-12-12] MEDS: VANCOMYCIN 750MG/NS 150ML IVPB 150 ML IV SCH (13:00)
[2018-12-12] MEDS ORDERED: SODIUM CHLORIDE 0.9% 250ML 250 ML ONE (13:02)
--- NOTE | 2018-12-12 14:18 | NUR ---
RECEIVED DISCHARGE ORDER FROM DR. HERCULES TO TRANSFER PATIENT TO [facility].
--- NOTE | 2018-12-12 16:10 | NUR ---
Patient discharge with EMS service with left hand IV 22 gauge, intact and saline lock. Belongings are with .
--- NOTE | 2018-12-12 16:10 | NUR ---
Patient is transported via stretcher for another facility transfer. Respiration even and unlabored without SOB.
== END 2018-12-12 16:11 | DRG 61 ==
LOC: ER 16:18 → ERHOLD 18:33 → ICU 21:10 → MED/SURG3 12-07 18:47
PROVIDERS: ADMIT Internal Medicine; ATTEND Internal Medicine
DX: I63.512 Cerebral infarction due to unspecified occlusion or stenosis of left middle cerebral artery (principal); I61.1 Nontraumatic intracerebral hemorrhage in hemisphere, cortical; I50.32 Chronic diastolic (congestive) heart failure; G81.91 Hemiplegia, unspecified affecting right dominant side; I13.0 Hypertensive heart and chronic kidney disease with heart failure and stage 1 through stage 4 chronic kidney disease, or unspecified chronic kidney disease; N39.0 Urinary tract infection, site not specified; R47.01 Aphasia; N18.3 Chronic kidney disease, stage 3 (moderate); I25.10 Atherosclerotic heart disease of native coronary artery without angina pectoris; I73.9 Peripheral vascular disease, unspecified; J44.9 Chronic obstructive pulmonary disease, unspecified; R40.2422 Glasgow coma scale score 9-12, at arrival to emergency department; E78.5 Hyperlipidemia, unspecified; N40.0 Benign prostatic hyperplasia without lower urinary tract symptoms; K21.9 Gastro-esophageal reflux disease without esophagitis; B96.20 Unspecified Escherichia coli [E. coli] as the cause of diseases classified elsewhere; B95.2 Enterococcus as the cause of diseases classified elsewhere; G25.0 Essential tremor; E66.9 Obesity, unspecified; Z68.34 Body mass index [BMI] 34.0-34.9, adult; I25.2 Old myocardial infarction; Z85.118 Personal history of other malignant neoplasm of bronchus and lung; Z86.718 Personal history of other venous thrombosis and embolism; Z86.711 Personal history of pulmonary embolism; Z79.01 Long term (current) use of anticoagulants; Z98.1 Arthrodesis status; Z86.73 Personal history of transient ischemic attack (TIA), and cerebral infarction without residual deficits; Z79.82 Long term (current) use of aspirin; Z88.5 Allergy status to narcotic agent; Z88.8 Allergy status to other drugs, medicaments and biological substances
CPT/HCPCS: 36415; 70450; 70551; 71045; 74018; 74230; 80048; 80053; 80061; 80202; 81001; 82140; 82550; 82553; 83036; 83735; 83880; 84484; 85025; 85610; 85730; 87086; 87186; 92523; 93005; 93306; 93880; 97139; 99284; J0360; J0696; J2060; J2270; J2405; J3370; J3486; J7030; J7050